=== PATIENT | female | born 2005 | race Caucasian/White ===

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

== ENCOUNTER 2025-01-15 21:08 | Emergency (ER) | payer MEDICAID, SELFPAY ==
[2025-01-15 21:13] VITALS: PULSE 82; O2SAT 98
[2025-01-15 21:14] VITALS: BP 141/78; PULSE 87; PULSE 92; RESP 20; TEMP 37; O2SAT 98
[2025-01-15 21:16] VITALS: BP 133/69; PULSE 92; O2SAT 98
[2025-01-15 21:57] LABS: Abs Immature Grans 0.05 10^3/uL (0.0-0.06); Absolute Basophil Count 0.05 10^3/uL (0.0-0.2); Absolute Eosinophil Count 0.08 10^3/uL (0.0-0.7); Absolute Lymphocyte Count 3.59 10^3/uL (1.2-3.4); Absolute Monocyte Count 0.57 10^3/uL (0.1-0.8); Absolute Neutrophil Count 8.34 10^3/uL (1.2-6.7); Basophils % 0.4 %; Eosinophils % 0.6 %; HCT 34.1 % (36.0-46.0); HGB 11.3 g/dL (11.2-15.7); Immature Grans % 0.4 %; Lymphocytes % 28.3 %; MCH 27.4 pg (27.0-33.0); MCHC 33.1 % (32.0-36.0); MCV 83 fL (80-95); MPV 8.9 fL (8.0-11.0); Monocytes % 4.5 %; Neutrophils % 65.8 %; Platelet Count 205 10^3/uL (130-400); RBC 4.12 10^6/uL (3.93-5.22); RDW 12.5 % (11.7-14.6); RDW-SD 37.5 fL; WBC 12.68 10^3/uL (4.4-10.8)
[2025-01-15 22:13] LABS: ALT 36 U/L (14-59); AST 15 U/L (15-37); Albumin 2.9 g/dL (3.4-5.0); Alkaline Phosphatase 69 U/L (46-116); Anion Gap 11.5 mmol/L (3-11); BUN 8 mg/dL (7-18); Bilirubin, Total 0.2 mg/dL (0.2-1.0); CO2 22.5 mmol/L (21.0-32.0); CREATININE 0.6 mg/dL (0.55-1.02); Calcium 8.5 mg/dL (8.5-10.1); Chloride 106 mmol/L (98-107); Estimated GFR 132.52 (mL/min/1.73m2); Glucose 107 mg/dL (74-106); Magnesium 1.7 mg/dL (1.8-2.4); Potassium 3.4 mmol/L (3.5-5.1); Sodium 140 mmol/L (136-145); Total Protein 6.9 g/dL (6.4-8.2)
[2025-01-15 22:16] VITALS: PULSE 84; PULSE 85; RESP 31; O2SAT 100
[2025-01-15] MEDS: Normal Saline 1,000 ML 1000 ML IV (22:16)
[2025-01-15] MEDS: ACETAMINOPHEN 500 MG/50 ML BAG 200 MG IVPB (22:16)
[2025-01-15] MEDS: Metoclopramide 10 MG/2 ML VIAL IVP (22:16)
[2025-01-15 22:17] VITALS: BP 121/61; PULSE 82; PULSE 96; RESP 23; O2SAT 98
[2025-01-15 22:20] VITALS: PULSE 82; RESP 29; O2SAT 99
[2025-01-15 22:29] LABS: Bilirubin Negative (Negative); Blood Negative (Negative); Clarity Clear (Clear); Glucose Negative (Negative); Ketones Negative (Negative); Leukocyte Esterase Negative (Negative); Nitrite Negative (Negative); Specific Gravity >= 1.030 (1.005-1.025); Urobilinogen 0.2 mg/dL (Up to 0.2)
--- NOTE | 2025-01-16 16:05 | ED.GENADUL_ITS ---
Discharge Plan Disposition Patient Disposition: Home Condition: Stable Discharge Details Clinical Impression: Migraine, Primary Care Provider: Yoly Caldwell ED Provider: Shefali Cabrera Home Meds and New Rx's Prescriptions: Continued albuterol sulfate 90 mcg/actuation HFA aerosol inhaler 2 puff IH Q4H PRN aspirin 81 mg tablet,delayed release (DR/EC) 162 mg PO DAILY Qty: 60 6RF clotrimazole [Antifungal (clotrimazole)] 1 % cream 1 applic topical BID Qty: 30 1RF Plus Vitamin-Mineral 27 mg iron- 1 mg tablet 1 tab PO DAILY Qty: 90 4RF Discharge Instructions Instructions: Headache, Adult ED Additional Instructions: Take Tylenol as needed for discomfort Follow-up with your primary care physician on Saturday Make sure you are having 8 to 10 glasses of water daily Small frequent meals Please return should you have worsening headache fever chills, or send any new concerns arise Referrals: Yoly Caldwell [Primary Care Provider] - 3 days Discharge Data Discharge Date/Time-TO BE ENTERED AT DEPARTURE: 01/15/25 22:57 HPI General Date/Time Provider Initiated Documentation: 01/15/25 21:23 . HPI Narrative: 19-year-old female, 14 weeks , presents with a suspected migraine headache starting this evening. Accompanied by her mother. Reports migraine similar to previous episodes. Mild increased lower extremity swelling, no vision changes, chest pain, shortness of breath, stiff neck, fever, abdominal pain, cramping, or bleeding. Under [facility] care throughout , no urinary symptoms. Tylenol did not relieve pain. Related Data Home Medications ?Medication ?Instructions ?Recorded ?Confirmed albuterol sulfate 90 mcg/actuation 2 puff inhalation Q4H PRN 01/22/19 01/15/25 aerosol inhaler aspirin 81 mg tablet,delayed 162 mg (2 x 81 mg) PO DAILY #60 12/31/24 01/15/25 release tabs clotrimazole 1 % topical cream 1 applic topical BID #30 grams 12/31/24 01/15/25 (Antifungal (clotrimazole)) vitamin no.180-ferrous 1 tab PO DAILY #90 tabs 12/31/24 01/15/25 fumarate 27 mg-folic acid 1 mg tablet ( Plus Vitamin-Mineral) Previous Rx's ?Medication ?Instructions ?Recorded aspirin 81 mg tablet,delayed 162 mg (2 x 81 mg) PO DAILY #60 12/31/24 release tabs clotrimazole 1 % topical cream 1 applic topical BID #30 grams 12/31/24 (Antifungal (clotrimazole)) vitamin no.180-ferrous 1 tab PO DAILY #90 tabs 12/31/24 fumarate 27 mg-folic acid 1 mg tablet ( Plus Vitamin-Mineral) Allergies Allergy/AdvReac Type Severity Reaction Status Date / Time amoxicillin Allergy Severe hives and Verified 12/31/24 10:34 trouble breathing Penicillins Allergy Severe rash,hives, Verified 12/31/24 10:34 and trouble breathing. General Stated Complaint: Headache CHARLEE: 3 Exam Narrative Exam Narrative: General Appearance: Alert, oriented, no acute distress. Vital signs: BP 120/60. HEENT: Pupils equal, round, reactive to light and accommodation. No meningismus. Respiratory: Within normal limits. Gastrointestinal: Benign abdominal exam, no tenderness. Back, Musculoskeletal: Ambulatory with steady gait. Skin: Warm and dry, no rash. Neurological: Benign neurological exam. Course Vital Signs Vital signs: Vital Signs Pulse 82 01/15/25 21:13 Pulse Oximetry 98 01/15/25 21:13 Temperature 37.0 C 01/15/25 21:14 Temperature Source Oral 01/15/25 21:14 Pulse 82 01/15/25 22:20 Pulse 82 01/15/25 22:20 Respiratory Rate 29 H 01/15/25 22:20 Blood Pressure 121/61 01/15/25 22:17 Blood Pressure Mean 78 01/15/25 22:17 Blood Pressure Position Sitting 01/15/25 21:14 Pulse Oximetry 99 01/15/25 22:20 Oxygen Delivery Method Room Air 01/15/25 21:14 Oxygen Flow Rate 0 01/15/25 21:14 Lab/Test Results Lab/Test Results: Laboratory Tests Range/Units 01/15/25 01/15/25 21:25 21:52 WBC (4.4-10.8) 10^3/uL 12.68 H RBC (3.93-5.22) 10^6/uL 4.12 Hgb (11.2-15.7) g/dL 11.3 Hct (36.0-46.0) % 34.1 L MCV (80-95) fL 83 MCH (27.0-33.0) pg 27.4 MCHC (32.0-36.0) % 33.1 RDW (11.7-14.6) % 12.5 Plt Count (130-400) 10^3/uL 205 MPV (8.0-11.0) fL 8.9 Immature Gran % % 0.4 Neutrophils % % 65.8 Lymphocytes % % 28.3 Monocytes % % 4.5 Eosinophils % % 0.6 Basophils % % 0.4 Nucleated RBC % (0.0-0.3) % 0.0 Absolute Neutrophils (1.2-6.7) 10^3/uL 8.34 H Absolute Lymphocytes (1.2-3.4) 10^3/uL 3.59 H Absolute Monocytes (0.1-0.8) 10^3/uL 0.57 Absolute Eosinophils (0.0-0.7) 10^3/uL 0.08 Absolute Basophils (0.0-0.2) 10^3/uL 0.05 Sodium (136-145) mmol/L 140 Potassium (3.5-5.1) mmol/L 3.4 L Chloride (98-107) mmol/L 106 Carbon Dioxide (21.0-32.0) mmol/L 22.5 Anion Gap (3-11) mmol/L 11.5 H BUN (7-18) mg/dL 8 Creatinine (0.55-1.02) mg/dL 0.6 Est GFR (CKD-EPI 2020) (mL/min/1.73m2) 132.52 Glucose (74-106) mg/dL 107 H Calcium (8.5-10.1) mg/dL 8.5 Magnesium (1.8-2.4) mg/dL 1.7 L Total Bilirubin (0.2-1.0) mg/dL 0.2 AST (15-37) U/L 15 ALT (14-59) U/L 36 Alkaline Phosphatase (46-116) U/L 69 Total Protein (6.4-8.2) g/dL 6.9 Albumin (3.4-5.0) g/dL 2.9 L Urine Color (Yellow) Yellow Urine Clarity (Clear) Clear Urine pH (5-8) 6.0 Ur Specific [place] (1.005-1.025) >= 1.030 H Urine Protein (Neg-Trace) mg/dL Trace Urine Ketones (Negative) mg/dL Negative Urine Blood (Negative) Negative Urine Nitrite (Negative) Negative Urine Bilirubin (Negative) Negative Urine Urobilinogen (Up to 0.2) mg/dL 0.2 Ur Leukocyte Esterase (Negative) Negative Urine Glucose (Negative) mg/dL Negative Medical Decision Making Laboratory Studies Magnesium 1.7, potassium 3.4. Urinalysis negative for proteinuria, labs benign. Imaging Ultrasound shows excellent cardiac activity on bedside exam, no formal POCUS obtained Initial Assessment: 19-year-old female, approximately 14 weeks , presents with suspected migraine headache that started this evening. Similar to prior episodes, Tylenol did not alleviate pain. Mild increased swelling in lower extremities. No vision changes, chest pain, shortness of breath, stiff neck, fever, abdominal pain, cramping, or bleeding. Followed throughout with [facility]. No urinary symptoms. Alert and oriented, not in acute distress. No meningismus. Pupils equal, round, reactive to light and accommodation. Neurological exam benign. ED Course: - Given Reglan, Tylenol, and 1 L fluid, headache resolved completely. - heart rate difficult to assess due to body habitus, excellent cardiac activity on ultrasound. - BP 120/60. - Urinalysis negative for proteinuria. - Labs essentially benign. - Encouraged hydration and multivitamin with potassium and magnesium. - Reviewed return precautions, patient understood. Final Assessment: Headache resolved completely after treatment with Reglan, Tylenol, and fluids. heart rate difficult to assess but excellent cardiac activity noted on ultrasound. Blood pressure and labs benign. Clinical Impression: - Migraine headache - at 14 weeks Disposition: - Follow-Up: Encouraged follow-up with OB and PCP. Patient Education: Encouraged hydration and multivitamin with potassium and magnesium. Reviewed return precautions, patient expressed understanding. MDM Components Evaluation: - Number of Differential Diagnoses or Management Options: Migraine headache, at 14 weeks - Amount and Complexity of Data Reviewed: Urinalysis, labs, ultrasound - Risk of Complication and Morbidity or Mortality: Low risk based on benign exam findings and resolved headache. Quality:SDHI Health Related Social Needs: No Data to Display PFSH All Active Problems (Updated 01/15/25 @ 22:47 by YUVAL Camargo) (Acute) Migraine (Chronic) Susceptible to varicella (non-immune), currently (Acute) Family history of diabetes mellitus in first degree relative (Acute) strong family hx type 2 (Acute) Body mass index (BMI) of 40.1 to 44.9 in adult (Acute) Patella-femoral syndrome (Acute) Acanthosis nigricans (Acute) Dependent edema (Acute) Mild intermittent asthma, uncomplicated (Acute 11/10/15) triggers exercise ? hot humid weather Medical History (Updated 01/15/25 @ 22:47 by YUVAL Camargo) Left knee tendonitis Blurred vision Left knee pain Dental caries (04/07/14) Left ankle sprain Left shoulder pain Encounter for screening examination for sexually transmitted disease Early stage of Wears glasses Surgical History ORAL/TEETH Family History Mother Ovarian cancer Diabetes type 2 Essential hypertension Hyperlipidemia Mental disorder DEPRESSION/ANXIETY Seizures Asthma Other No problems noted. 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
== END 2025-01-15 22:57 | disposition home or self-care (01) ==
PROVIDERS: Emergency Provider Physician Assistant; PCP Nurse Practitioner Family
DX: O26.892 Other specified pregnancy related conditions, second trimester (principal); G43.909 Migraine, unspecified, not intractable, without status migrainosus; O99.332 Smoking (tobacco) complicating pregnancy, second trimester; F17.290 Nicotine dependence, other tobacco product, uncomplicated; Z3A.14 14 weeks gestation of pregnancy; Z79.82 Long term (current) use of aspirin
CPT/HCPCS: 80053; 96374; 96375; 99284; 81003; 83735; 85025; J0131; J2765

== ENCOUNTER 2025-02-10 22:43 | Emergency (ER) | payer MEDICAID, SELFPAY ==
[2025-02-10 22:50] VITALS: BP 143/84; PULSE 100; RESP 18; TEMP 35.7; O2SAT 100
--- NOTE | 2025-02-10 23:17 | W.ED.GENAD ---
Discharge Plan Disposition Patient Disposition: Home Condition: Good Discharge Details Clinical Impression: Abscess of right thigh Primary Care Provider: Yoly Caldwell ED Provider: Lavelle Germain Meds and New Rx's Prescriptions: New sulfamethoxazole-trimethoprim [Bactrim DS] 800-160 mg tablet 1 tab PO BID Qty: 10 0RF Continued albuterol sulfate 90 mcg/actuation HFA aerosol inhaler 2 puff IH Q4H PRN aspirin 81 mg tablet,delayed release (DR/EC) 162 mg PO DAILY Qty: 60 6RF clotrimazole [Antifungal (clotrimazole)] 1 % cream 1 applic topical BID Qty: 30 1RF Plus Vitamin-Mineral 27 mg iron- 1 mg tablet 1 tab PO DAILY Qty: 90 4RF Discharge Instructions Instructions: Abscess Incision and Drainage ED Additional Instructions: You were seen for pain in the right upper thigh which was related to an abscess. This was opened and drained though it is still quite firm at the base. Continue warm compresses and Tylenol. You should move the loop back and forth a few times a day to break up loculations. You have been started on an antibiotic. Please follow-up with surgery clinic, call in the morning for an appointment Saturday. Return to ED for any fever, increasing pain or redness, other concerns. Referrals: [facility] [Provider Group] HPI General Mode of arrival: ambulatory. Date/Time Provider Initiated Documentation: 02/10/25 22:54. Limitations to Documentation: no limitations. Information obtained by: patient and RN notes reviewed. HPI Narrative: Patient presents to ED with complaint of pain and swelling in the perineal area. She reports that has been worsening over the course of 2 to 3 weeks. She is 18 weeks . She denies any abdominal pain, vaginal bleeding, vaginal discharge. The pain and swelling in the perineal area is getting worse and tonight had a small amount of green drainage. She had not called and spoke to anyone in OB about this prior but can no longer take the discomfort and came to ED this evening. There is no report of fever. There is no report of this being a problem in the past. Related Data Home Medications ?Medication ?Instructions ?Recorded ?Confirmed albuterol sulfate 90 mcg/actuation 2 puff inhalation Q4H PRN 01/22/19 02/10/25 aerosol inhaler aspirin 81 mg tablet,delayed 162 mg (2 x 81 mg) PO DAILY #60 12/31/24 02/10/25 release tabs clotrimazole 1 % topical cream 1 applic topical BID #30 grams 12/31/24 02/10/25 (Antifungal (clotrimazole)) vitamin no.180-ferrous 1 tab PO DAILY #90 tabs 12/31/24 02/10/25 fumarate 27 mg-folic acid 1 mg tablet ( Plus Vitamin-Mineral) sulfamethoxazole 800 1 tab PO BID #10 tabs 02/11/25 mg-trimethoprim 160 mg tablet (Bactrim DS) Previous Rx's ?Medication ?Instructions ?Recorded aspirin 81 mg tablet,delayed 162 mg (2 x 81 mg) PO DAILY #60 12/31/24 release tabs clotrimazole 1 % topical cream 1 applic topical BID #30 grams 12/31/24 (Antifungal (clotrimazole)) vitamin no.180-ferrous 1 tab PO DAILY #90 tabs 12/31/24 fumarate 27 mg-folic acid 1 mg tablet ( Plus Vitamin-Mineral) sulfamethoxazole 800 1 tab PO BID #10 tabs 02/11/25 mg-trimethoprim 160 mg tablet (Bactrim DS) Allergies Allergy/AdvReac Type Severity Reaction Status Date / Time amoxicillin Allergy Severe hives and Verified 02/10/25 22:51 trouble breathing Penicillins Allergy Severe rash,hives, Verified 02/10/25 22:51 and trouble breathing. General Stated Complaint: Cellulitis CHARLEE: 4 Exam Narrative Exam Narrative: Const: Obese female in NAD. VS per triage. HEENT: NC/AT. Normal facial exam. Neck: Supple. Trachea midline. Lungs: Normal respiratory effort. Neuro: A+O x 3. Normal speech, mentation, gait. Cranial nerves II - XII grossly intact. No gross motor or sensory deficit. Ext: No C/C/E. There is swelling, induration and fluctuance the is in the proximal/medial right thigh at the junction of the groin. This does not involve the perineum or genitalia. There is minimal erythema. Indurated area is about golf ball size with a smaller component of fluctuance central and superficial to the induration. Course Vital Signs Vital signs: Vital Signs Temperature 96.3 F L 02/10/25 22:50 Pulse 100 H 02/10/25 22:50 Respiratory Rate 18 02/10/25 22:50 Blood Pressure 143/84 H 02/10/25 22:50 Pulse Oximetry 100 02/10/25 22:50 Temperature 96.3 F L 02/10/25 22:50 Temperature Source Tympanic 02/10/25 22:50 Pulse 100 H 02/10/25 22:50 Respiratory Rate 18 02/10/25 22:50 Blood Pressure 143/84 H 02/10/25 22:50 Blood Pressure Position Sitting 02/10/25 22:50 Pulse Oximetry 100 02/10/25 22:50 Oxygen Delivery Method Room Air 02/10/25 22:50 Oxygen Flow Rate 0 02/10/25 22:50 Procedure Abscess Drainage Date of Procedure: 02/10/25 Time of Procedure: 23:00 Provider that performed the procedure: Lavelle Germain Standard Time Out Performed: Yes Patient Consented: Verbally Location of Exam: Groin/right side Indication: Abscess. Local anesthetic: Lidocaine 1% and with epi, Amount of Local Anesthetic Used (mL): 5. Sterility: Sterile. Procedure Prep: Hand hygiene, Betadine and 11 blade. Technique uesed, incised with blade. Amount of fluid expressed(mL): 1.5. Irrigation: Irrigation used, Packing: Loop Drain. Outcome: Sucessful.. Ultrasound: Not used Complications: None Procedure Description Note: The fluctuant/indurated area was prepped with Betadine. Central portion anesthetized with 1% lidocaine with epinephrine. 2 stab incisions made about 1 cm apart over the fluctuant area. 1 to 2 cc of bloody purulent drainage was drained. Wound was probed with curved forceps to break up loculations. Deeper indurated area did not drain any further purulent material. Wound irrigated with saline. Loop drain placed. Patient tolerated procedure well. Wound culture was obtained and sent. Medical Decision Making Patient presenting with increased pain and swelling as well as some green drainage from an area of the proximal medial right thigh at the junction of the groin. This is consistent with abscess. Verbal consent obtained for I&D. Please see procedure note. Patient tolerated this well overall. Patient discussed with OB Dr. Falcon. We did determine that Bactrim DS would be safe to use in second trimester, given her allergy to penicillins. However, due to the location of this abscess and induration being more in the thigh than in the perineum or genital region would prefer a referral to surgery. I spoke with Dr. Quinn and surgery will attempt to get the patient in for a recheck Saturday afternoon. Patient is given acetaminophen and Bactrim here. Prescription for Bactrim sent to pharmacy. Instructed patient and mother on wound care/drain care. Also instructed to contact surgery in the morning to set up the appointment for Saturday. Return precautions discussed. PFSH All Active Problems (Acute) Wears glasses (Acute) Dental caries (Acute 04/07/14) Abscess of right thigh (Acute) Susceptible to varicella (non-immune), currently (Acute) Family history of diabetes mellitus in first degree relative (Acute) strong family hx type 2 Body mass index (BMI) of 40.1 to 44.9 in adult (Acute) Patella-femoral syndrome (Acute) Acanthosis nigricans (Acute) Dependent edema (Acute) Medical History Mild intermittent asthma, uncomplicated (11/10/15) triggers exercise ? hot humid weather Migraine Scoliosis Sees a workers compensation specialist at [facility] [place] Dayne Marinva saw him 11/2024 Surgical History ORAL/TEETH Family History Mother Ovarian cancer Diabetes type 2 Essential hypertension Hyperlipidemia Mental disorder DEPRESSION/ANXIETY Seizures Asthma Other No problems noted. 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
[2025-02-11] MEDS: Acetaminophen 500 MG TAB 1000 MG PO (00:10)
[2025-02-11] MEDS: Sulfameth/Trimeth DS TAB 1 TAB PO (00:10)
[2025-02-11] MEDS: Lidocaine 1% Multi-Dose W/EPI 1/100,000 50 ML VIAL (00:10)
--- NOTE | 2025-02-14 13:05 | NUR.NOTE ---
Access chart to get the discharge antibiotic for skin aerobic culture Nursing Note:
--- NOTE | 2025-02-14 13:12 | ED.FU.B_ITS ---
Date of service: 02/14/25 Time of Service: 13:12 Follow Up Plan: I was provided with a culture result for a wound culture, patient per my chart review had an abscess of her upper thigh, had a loop placed and was started on Bactrim and cephalexin per chart review. The culture is growing normal skin lory, no changes need to be made to this patient's medication regimen, and it appears that she has appropriate outpatient follow-up with general surgery and [facility]. No intervention required. Kalee Cole MD
== END 2025-02-11 00:35 | disposition home or self-care (01) ==
LOC: ER 02-11 00:38
PROVIDERS: Emergency Provider Emergency Medicine; PCP Nurse Practitioner Family
DX: L02.214 Cutaneous abscess of groin (principal); O26.892 Other specified pregnancy related conditions, second trimester; O99.332 Smoking (tobacco) complicating pregnancy, second trimester; F17.290 Nicotine dependence, other tobacco product, uncomplicated; Z3A.18 18 weeks gestation of pregnancy
CPT/HCPCS: 10061; 99283; 87070; 87075; J2004

== ENCOUNTER 2025-02-13 23:18 | Emergency (ER) | payer MEDICAID, SELFPAY ==
[2025-02-13 23:22] VITALS: BP 136/95; PULSE 108; RESP 18; TEMP 37.1; O2SAT 97
--- NOTE | 2025-02-13 23:35 | ED.GENADUL_ITS ---
Discharge Plan Disposition Patient Disposition: Home Condition: Good Discharge Details Clinical Impression: Abscess Primary Care Provider: Yoly Caldwell ED Provider: Sondra Meier Home Meds and New Rx's Prescriptions: Continued albuterol sulfate 90 mcg/actuation HFA aerosol inhaler 2 puff IH Q4H PRN clotrimazole [Antifungal (clotrimazole)] 1 % cream 1 applic topical BID Qty: 30 1RF Plus Vitamin-Mineral 27 mg iron- 1 mg tablet 1 tab PO DAILY Qty: 90 4RF cephalexin 500 mg capsule 500 mg PO BID Qty: 8 0RF Discontinued sulfamethoxazole-trimethoprim [Bactrim DS] 800-160 mg tablet 1 tab PO BID Qty: 10 0RF No Action aspirin 81 mg tablet,delayed release (DR/EC) 162 mg PO DAILY Qty: 60 6RF Discharge Instructions Additional Instructions: Do not swim until the wound closes. Follow up with your surgeon. Seek medical attention for new or worsening symptoms, including fever, increasing pain, or if your abscess returns. HPI General Mode of arrival: ambulatory . Date/Time Provider Initiated Documentation: 02/13/25 23:19 . Limitations to Documentation: no limitations . Information obtained by: patient and old records reviewed . HPI Narrative: 19yo F presenting for removal of loop drain. Drain placed during abscess drainage on 02/10/25; patient reports she spoke with her surgeon who stated it should be removed prior to her leaving for vacation. No active drainage from site today. No fevers. She is otherwise in her usual state of health. Related Data Home Medications ?Medication ?Instructions ?Recorded ?Confirmed albuterol sulfate 90 mcg/actuation 2 puff inhalation Q 4H PRN 01/22/19 02/13/25 aerosol inhaler aspirin 81 mg tablet,delayed 162 mg (2 x 81 mg) PO CLAUDIA LY #60 12/31/24 02/13/25 release tabs clotrimazole 1 % topical cream 1 applic topical BID #3 0 grams 12/31/24 02/13/25 (Antifungal (clotrimazole)) vitamin no.180-ferrous 1 tab PO DAILY #90 tab s 12/31/24 02/13/25 fumarate 27 mg-folic acid 1 mg tablet ( Plus Vitamin-Mineral) cephalexin 500 mg capsule 500 mg PO BID #8 caps 02/13/25 Previous Rx's ?Medication ?Instructions ?Recorded aspirin 81 mg tablet,delayed 162 mg (2 x 81 mg) PO CLAUDIA LY #60 12/31/24 release tabs clotrimazole 1 % topical cream 1 applic topical BID #3 0 grams 12/31/24 (Antifungal (clotrimazole)) vitamin no.180-ferrous 1 tab PO DAILY #90 tab s 12/31/24 fumarate 27 mg-folic acid 1 mg tablet ( Plus Vitamin-Mineral) cephalexin 500 mg capsule 500 mg PO BID #8 caps Allergies Allergy/AdvReac Type Severity Reaction Status Date / Time amoxicillin Allergy Severe hives and Verified 02/13/25 23:26 trouble breathing Penicillins Allergy Severe rash,hives, Verified 02/13/25 23:26 and trouble breathing. General Stated Complaint: Recheck CHARLEE: 4 Review of Systems Narrative: see HPI Exam Narrative Exam Narrative: General: Alert, well appearing, well nourished, in no acute distress. Head: Normocephalic, atraumatic Neck: Trachea midline, ?Neck supple. Resp: No respiratory distress. . Extremities: ?No deformities.? No peripheral edema. Neurologic: GCS 15. ? Moves all extremities freely against gravity Skin: Right perineum with loop drain in place. No active drainage. Course Vital Signs Vital signs: Vital Signs Temperature 37.1 C 02/13/25 23:22 Pulse 108 H 02/13/25 23:22 Respiratory Rate 18 02/13/25 23:22 Blood Pressure 136/95 H 02/13/25 23:22 Pulse Oximetry 97 02/13/25 23:22 Temperature 37.1 C 02/13/25 23:22 Temperature Source Tympanic 02/13/25 23:22 Pulse 108 H 02/13/25 23:22 Respiratory Rate 18 02/13/25 23:22 Blood Pressure 136/95 H 02/13/25 23:22 Blood Pressure Position Sitting 02/13/25 23:22 Pulse Oximetry 97 02/13/25 23:22 Oxygen Delivery Method Room Air 02/13/25 23:22 Oxygen Flow Rate 0 02/13/25 23:22 Pain Level 3 02/13/25 23:22 Medical Decision Making 19yo F presenting for removal of loop drain. Drain placed during abscess drainage on 02/10/25; patient reports she spoke with her surgeon who stated it should be removed prior to her leaving for vacation. No active drainage from site today. Slightly tachycardiac on arrival after ambulating into triage; vital signs otherwise reassuring. Drain removed without complication. Repeat HR improved without intervention. Discharged home; discharge instructions and return precautions were reviewed with patient who verbalized understanding. All questions were answered and she is in full agreement with the plan. PFSH All Active Problems (Updated 02/13/25 @ 23:29 by Sondra Meier MD) Abscess (Acute) (Acute) Wears glasses (Acute) Dental caries (Acute 04/07/14) Abscess of right thigh (Acute) Susceptible to varicella (non-immune), currently (Acute) Family history of diabetes mellitus in first degree relative (Acute) strong family hx type 2 Body mass index (BMI) of 40.1 to 44.9 in adult (Acute) Patella-femoral syndrome (Acute) Acanthosis nigricans (Acute) Dependent edema (Acute) Medical History Mild intermittent asthma, uncomplicated (11/10/15) triggers exercise ? hot humid weather Migraine Scoliosis Sees a equipment validation specialist at [facility] [place] Dayne [place]auer saw him 11/2024 Surgical History ORAL/TEETH Family History Mother Ovarian cancer Diabetes type 2 Essential hypertension Hyperlipidemia Mental disorder DEPRESSION/ANXIETY Seizures Asthma Other No problems noted. 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
[2025-02-13 23:38] VITALS: PULSE 98; RESP 16; O2SAT 98
== END 2025-02-13 23:40 | disposition home or self-care (01) ==
PROVIDERS: Emergency Provider Student in an Organized Health Care Education/Training Program; PCP Nurse Practitioner Family
DX: L02.215 Cutaneous abscess of perineum (principal)
CPT/HCPCS: 99024

== ENCOUNTER 2025-03-04 14:45 | Outpatient (REF) | payer MEDICAID, SELFPAY ==
[2025-03-05 14:15] LABS: Chlamydia Result Negative (Negative); GC Result Negative (Negative)
== END 2025-03-04 14:46 | disposition home or self-care (01) ==
LOC: LBN 14:45
PROVIDERS: PCP Nurse Practitioner Family; Visit Provider Advanced Practice Midwife
DX: Z34.92 Encounter for supervision of normal pregnancy, unspecified, second trimester (principal)
CPT/HCPCS: 87491; 87591

== ENCOUNTER 2025-03-22 03:31 | Emergency (ER) | payer MEDICAID, SELFPAY ==
[2025-03-22 03:35] VITALS: PULSE 86; RESP 18; TEMP 36.4; O2SAT 99
--- NOTE | 2025-03-22 04:12 | ED.GENADUL_ITS ---
Discharge Plan Disposition Patient Disposition: Home Condition: Good Discharge Details Clinical Impression: Rhomboid muscle strain Primary Care Provider: Yoly Caldwell ED Provider: Jan Henson Home Meds and New Rx's Prescriptions: New lidocaine [Lidoderm] 5 % adhesive patch,medicated 1 patch Topical Q24H Qty: 15 0RF No Action albuterol sulfate 90 mcg/actuation HFA aerosol inhaler 2 puff IH Q4H PRN aspirin 81 mg tablet,delayed release (DR/EC) 162 mg PO DAILY Qty: 60 6RF clotrimazole [Antifungal (clotrimazole)] 1 % cream 1 applic topical BID Qty: 30 1RF Plus Vitamin-Mineral 27 mg iron- 1 mg tablet 1 tab PO DAILY Qty: 90 4RF cephalexin 500 mg capsule 500 mg PO BID Qty: 8 0RF Discharge Instructions Instructions: Muscle Strain ED Additional Instructions: At this time your exam shows evidence to suggest a strain of your rhomboid muscle. Please apply the Lidoderm patch, and keep this on for 12 hours. It can then be replaced with a new patch which prescription has been sent to your pharmacy. Please also take Tylenol, maximum dose of 1000 mg every 6 hours. Please use a heating pad consistently on your back to help. If you notice any worsening of your symptoms, or any new symptoms such as vomiting, diarrhea, fever, chills, shortness of breath, chest pain, numbness, weakness, or fainting , please return immediately to the emergency department for reevaluation. Please follow up with your primary care provider as soon as possible for reassessment and reevaluation. As always, it was a pleasure participating in your medical care today. Referrals: Yoly Caldwell [Primary Care Provider, Medicine] [facility] General Date/Time Provider Initiated Documentation: 03/22/25 03:42 . HPI Narrative: This is a 19-year-old female without significant medical history who is currently 22 weeks who presents today for evaluation of left scapular ache. Patient states that started 2 days ago, uncertain as to what brought it about. It is worse with movement of the scapula. She did try heating pad without significant improvement. She denies any pleuritic chest pain, shortness of breath, or cough. No fever or chills. She denies trauma. No other complaints at this time. Related Data Home Medications ?Medication ?Instructions ?Recorded ?Confirmed albuterol sulfate 90 mcg/actuation 2 puff inhalation Q 4H PRN 01/22/19 03/22/25 aerosol inhaler aspirin 81 mg tablet,delayed 162 mg (2 x 81 mg) PO CLAUDIA LY #60 12/31/24 03/22/25 release tabs clotrimazole 1 % topical cream 1 applic topical BID #3 0 grams 12/31/24 03/22/25 (Antifungal (clotrimazole)) vitamin no.180-ferrous 1 tab PO DAILY #90 tab s 12/31/24 03/22/25 fumarate 27 mg-folic acid 1 mg tablet ( Plus Vitamin-Mineral) cephalexin 500 mg capsule 500 mg PO BID #8 caps 03/22/25 lidocaine 5 % topical patch 1 patch topical Q24H #15 e a 03/22/25 (Lidoderm) Previous Rx's ?Medication ?Instructions ?Recorded aspirin 81 mg tablet,delayed 162 mg (2 x 81 mg) PO CLAUDIA LY #60 12/31/24 release tabs clotrimazole 1 % topical cream 1 applic topical BID #3 0 grams 12/31/24 (Antifungal (clotrimazole)) vitamin no.180-ferrous 1 tab PO DAILY #90 tab s 12/31/24 fumarate 27 mg-folic acid 1 mg tablet ( Plus Vitamin-Mineral) cephalexin 500 mg capsule 500 mg PO BID #8 caps lidocaine 5 % topical patch 1 patch topical Q24H #15 e a 03/22/25 (Lidoderm) Allergies Allergy/AdvReac Type Severity Reaction Status Date / Time amoxicillin Allergy Severe hives and Verified 03/22/25 03:39 trouble breathing Penicillins Allergy Severe rash,hives, Verified 03/22/25 03:39 and trouble breathing. General Stated Complaint: Nk/Back Pain CHARLEE: 3 Exam Narrative Exam Narrative: 1.Const: Well-nourished, Well-developed, appearing stated age 2.Eyes: PERRL, no conjunctival injection, and symmetrical lids. 3.ENT: Atraumatic external nose and ears. Moist MM. Neck: Symmetric, trachea midline, No thyromegaly. 4.CVS: +S1/S2, Peripheral pulses 2+ and equal in all extremities. Brisk capillary refill in all extremities. 5.RESP: Unlabored respiratory effort. Clear to auscultation bilaterally. No wheezes rales or rhonchi 6.GI: Soft, Nontender/Nondistended, No hepatosplenomegaly. No guarding or rebound. 7.MSK: Normocephalic/Atraumatic, Extremities w/o deformity or ttp No cyanosis or clubbing, Normal movement of all extremities. Mild tenderness on palpation of the rhomboid musculature just medial to the left scapula. No deformity or severe spasm. No bruising. No rash. No tenderness on the shoulder or midline thoracic spine. No rib tenderness. No tenderness of the scapula bone itself. 8.Skin: Warm, Dry. No rashes or lesions. 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 Sensation grossly intact, no focal neurologic deficits. 10.Psych: (AAO) x3. Appropriate mood and affect Course Vital Signs Vital signs: Vital Signs Temperature 36.4 C 03/22/25 03:35 Pulse 86 03/22/25 03:35 Respiratory Rate 18 03/22/25 03:35 Pulse Oximetry 99 03/22/25 03:35 Temperature 36.4 C 03/22/25 03:35 Pulse 86 03/22/25 03:35 Respiratory Rate 18 03/22/25 03:35 Pulse Oximetry 99 03/22/25 03:35 Oxygen Delivery Method Room Air 03/22/25 03:35 Oxygen Flow Rate 0 03/22/25 03:35 Pain Level 10 03/22/25 03:35 Medical Decision Making This is a 19-year-old female without significant medical history who is currently 22 weeks who presents today for evaluation of left scapular ache. Patient states that started 2 days ago, uncertain as to what brought it about. It is worse with movement of the scapula. She did try heating pad without significant improvement. She denies any pleuritic chest pain, shortness of breath, or cough. No fever or chills. She denies trauma. No other complaints at this time. Exam demonstrates well-appearing female, mild achiness over the rhomboid musculature over the left scapula. No significant bruising or rash. No other concerning red flags. No rib or shoulder tenderness. Bedside limited ultrasound shows no pneumothorax. Patient has no tachycardia or pleuritic chest pain, PERC and Wells scores are negative, no evidence to suggest PE. No chest pain in general to suggest ACS. No cough or fever to suggest pneumonia. She is , and not having a menstrual cycle, no evidence to suggest catamenial pneumothorax. Will recommend Lidoderm patch and Tylenol. As well as heating pad. Lidoderm patch and Tylenol was given here. Discussed red flags for which to return. I have extensively reviewed the treatment plan and discharge instructions with the patient. I have addressed all patient concerns at this time. The patient was made aware of what symptoms to monitor for that would warrant a return to the emergency department. Discussed the plan with the patient, they demonstrate verbal understanding and agreement with our assessment and plan at this time. The documentation in this chart was dictated using [employer] dictation software. Please excuse any dictation errors. PFSH All Active Problems (Updated 03/22/25 @ 04:13 by Jan Henson DO) Rhomboid muscle strain (Acute) (Acute) Wears glasses (Acute) Dental caries (Acute 04/07/14) Susceptible to varicella (non-immune), currently (Acute) Family history of diabetes mellitus in first degree relative (Acute) strong family hx type 2 Body mass index (BMI) of 40.1 to 44.9 in adult (Acute) Patella-femoral syndrome (Acute) Acanthosis nigricans (Acute) Dependent edema (Acute) Medical History Mild intermittent asthma, uncomplicated (11/10/15) triggers exercise ? hot humid weather Migraine Scoliosis Sees a community development specialist at [facility] [place] Dayne Marinva saw him 11/2024 Surgical History ORAL/TEETH Family History Mother Ovarian cancer Diabetes type 2 Essential hypertension Hyperlipidemia Mental disorder DEPRESSION/ANXIETY Seizures Asthma Other No problems noted. 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 Pets and animals: Yes Pets and animals: cat(s), bird(s) and other Details: rabbit Do you feel safe at home: Yes Do you feel safe in your relationship?: Yes Female Reproductive History Menstrual control method: none History History 1 Para 0 Hx # Term Pregnancies 0 Multiple births 0 Hx # Pregnancies 0 Ectopic pregnancies 0 AB induced 0 Hx Number of Living Children 0 AB spontaneous 0 POCUS Exam (ED) Limited Thoracic Lung Exam DATE OF EXAM: 03/22/25 TIME OF EXAM: 04:18 PROVIDER THAT PERFORMED THE STUDY: Jan Henson IS THIS A REPEAT EXAM DURING THIS ENCOUNTER: No REASON FOR EXAM: Other (Scapula pain) indication: Scapula pain VISUALIZED STRUCTURES: left anterior, right posterior and left posterior PERTINENT FINDINGS/IMPRESSION: No apparent abnormalities Exam complete
[2025-03-22] MEDS: Acetaminophen 500 MG TAB 1000 MG PO (04:19)
[2025-03-22] MEDS: Lidocaine 5% Patch 1 PATCH TP (04:21)
[2025-03-22 04:23] VITALS: PULSE 89; RESP 18; O2SAT 98
== END 2025-03-22 04:24 | disposition home or self-care (01) ==
PROVIDERS: Emergency Provider Student in an Organized Health Care Education/Training Program; PCP Nurse Practitioner Family
DX: S29.012A Strain of muscle and tendon of back wall of thorax, initial encounter (principal); Z3A.22 22 weeks gestation of pregnancy; X58.XXXA Exposure to other specified factors, initial encounter
CPT/HCPCS: 99283; 99284; 76604

== ENCOUNTER 2025-04-26 01:44 | Outpatient (CLI) | payer MEDICAID, SELFPAY ==
[2025-04-26 11:37] LABS: HCT 35.2 % (36.0-46.0); HGB 11.6 g/dL (11.2-15.7); MCH 27.8 pg (27.0-33.0); MCHC 33.0 % (32.0-36.0); MCV 84 fL (80-95); MPV 9.3 fL (8.0-11.0); Platelet Count 214 10^3/uL (130-400); RBC 4.17 10^6/uL (3.93-5.22); RDW 13.7 % (11.7-14.6); RDW-SD 42.4 fL; WBC 14.33 10^3/uL (4.4-10.8)
[2025-04-26 12:32] LABS: Glucose,1 Hr (Glucola) 116 mg/dL (80-140)
== END 2025-04-26 01:45 | disposition home or self-care (01) ==
LOC: LBO 01:44
PROVIDERS: PCP Nurse Practitioner Family; Visit Provider Advanced Practice Midwife
DX: Z34.92 Encounter for supervision of normal pregnancy, unspecified, second trimester (principal)
CPT/HCPCS: 36415; 82950; 85027

== ENCOUNTER 2025-04-26 10:03 | Outpatient (REF) | payer MEDICAID, SELFPAY ==
[2025-04-26 12:51] LABS: Cannabinoids THC Negative (Negative); METHADONE URINE SCREEN Negative (Negative)
[2025-04-27 15:02] LABS: Fentanyl Scr w/Rfx Confirm Negative ng/mL (<1)
== END 2025-04-26 10:04 | disposition home or self-care (01) ==
LOC: LBN 10:03
PROVIDERS: PCP Nurse Practitioner Family; Visit Provider Advanced Practice Midwife
DX: Z34.92 Encounter for supervision of normal pregnancy, unspecified, second trimester (principal)
CPT/HCPCS: 80307; 80348

== ENCOUNTER 2025-04-29 12:04 | Emergency (ER) | payer MEDICAID, SELFPAY ==
[2025-04-29 12:10] VITALS: BP 111/78; PULSE 106; RESP 20; TEMP 36.7; O2SAT 97
--- NOTE | 2025-04-29 13:41 | W.ED.GENAD ---
Discharge Plan Disposition Patient Disposition: Home Condition: Good Discharge Details Clinical Impression: Abscess Primary Care Provider: Yoly Caldwell ED Provider: Jan Henson Home Meds and New Rx's Prescriptions: New clindamycin HCl 150 mg capsule 450 mg PO Q6H 7 Days Qty: 84 0RF No Action albuterol sulfate 90 mcg/actuation HFA aerosol inhaler 2 puff IH Q4H PRN aspirin 81 mg tablet,delayed release (DR/EC) 162 mg PO DAILY Qty: 60 6RF Plus Vitamin-Mineral 27 mg iron- 1 mg tablet 1 tab PO DAILY Qty: 90 4RF magnesium citrate 100 mg tablet See Rx Instructions PO QHS MDD 400 mg 60 Days Qty: 90 2RF Rx Instructions: 2 to 4 tabs orally every day at bedtime; Start with 2 tabs at bedtime, gradually increase to 4 tabs at bedtime. lidocaine [Lidoderm] 5 % adhesive patch,medicated 1 patch Topical Q24H Qty: 15 0RF Discharge Instructions Instructions: Leyla, Adult ED Additional Instructions: At this time you have a small abscess in your genital region. Fortunately it is not large enough that incision and drainage would be helpful. Please take the antibiotic as prescribed. If you notice any worsening of your symptoms, or any new symptoms such as vomiting, diarrhea, fever, chills, shortness of breath, chest pain, numbness, weakness, or fainting , please return immediately to the emergency department for reevaluation. Please follow up with your primary care provider as soon as possible for reassessment and reevaluation. As always, it was a pleasure participating in your medical care today. Referrals: Yoly Caldwell [Primary Care Provider, Medicine] Discharge Data Discharge Date/Time-TO BE ENTERED AT DEPARTURE: 04/29/25 13:54 HPI General Date/Time Provider Initiated Documentation: 04/29/25 12:19. HPI Narrative: 19-year-old female who is 29 weeks who only had a notable perineal abscess that was drained 2 months ago, who presents today with lesion on her right vulva. Patient states that yesterday she noticed small amount of blood, a red frothy swelling tender nodule the right vulva. Had no drainage or discharge otherwise. The area was mildly tender, but otherwise no other abnormalities. She presents today out of concern that it may be an early abscess, came for further assessment. She denies any other complaints at this time. Baby is still kicking well. No pelvic cramping. No other complaints. Related Data Home Medications ?Medication ?Instructions ?Recorded ?Confirmed albuterol sulfate 90 mcg/actuation 2 puff inhalation Q4H PRN 01/22/19 04/29/25 aerosol inhaler aspirin 81 mg tablet,delayed 162 mg (2 x 81 mg) PO DAILY #60 12/31/24 04/29/25 release tabs vitamins no.180-ferrous 1 tab PO DAILY #90 tabs 12/31/24 04/29/25 fumarate 27 mg-folic acid 1 mg tablet ( Plus Vitamin-Mineral) lidocaine 5 % topical patch 1 patch topical Q24H #15 ea 03/22/25 04/29/25 (Lidoderm) magnesium citrate 100 mg tablet See Rx Instructions PO QHS 60 days 03/25/25 04/29/25 #90 tabs clindamycin HCl 150 mg capsule 450 mg (3 x 150 mg) PO Q6H 7 days 04/29/25 #84 caps Previous Rx's ?Medication ?Instructions ?Recorded aspirin 81 mg tablet,delayed 162 mg (2 x 81 mg) PO DAILY #60 12/31/24 release tabs vitamins no.180-ferrous 1 tab PO DAILY #90 tabs 12/31/24 fumarate 27 mg-folic acid 1 mg tablet ( Plus Vitamin-Mineral) lidocaine 5 % topical patch 1 patch topical Q24H #15 ea 03/22/25 (Lidoderm) magnesium citrate 100 mg tablet See Rx Instructions PO QHS 60 days 03/25/25 #90 tabs clindamycin HCl 150 mg capsule 450 mg (3 x 150 mg) PO Q6H 7 days 04/29/25 #84 caps Allergies Allergy/AdvReac Type Severity Reaction Status Date / Time amoxicillin Allergy Severe hives and Verified 04/29/25 12:13 trouble breathing Penicillins Allergy Severe rash,hives, Verified 04/29/25 12:13 and trouble breathing. General Stated Complaint: RashLesion CHARLEE: 3 Exam Narrative Exam Narrative: 1.Const: Well-nourished, Well-developed, appearing stated age 2.Eyes: PERRL, no conjunctival injection, and symmetrical lids. 3.ENT: Atraumatic external nose and ears. Moist MM. Neck: Symmetric, trachea midline, No thyromegaly. 4.CVS: +S1/S2, Peripheral pulses 2+ and equal in all extremities. Brisk capillary refill in all extremities. 5.RESP: Unlabored respiratory effort. Clear to auscultation bilaterally. No wheezes rales or rhonchi 6.GI: Soft, Nontender/Nondistended, No hepatosplenomegaly. No guarding or rebound. Genital exam demonstrates a single small lesion on the right vulva that is mildly firm and indurated without evidence of redness or cellulitis. No significant fluctuance. Limited bedside ultrasound shows evidence of a less than 5 mm structure, with minimal internal fluid. Certainly not large enough for drainage at this time. No other large abscess or abnormalities. No vesicles. 7.MSK: Normocephalic/Atraumatic, Extremities w/o deformity or ttp No cyanosis or clubbing, Normal movement of all extremities 8.Skin: Warm, Dry. No rashes or lesions. 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 Sensation grossly intact, no focal neurologic deficits. 10.Psych: (AAO) x3. Appropriate mood and affect Course Vital Signs Vital signs: Vital Signs Temperature 36.7 C 04/29/25 12:10 Pulse 106 H 04/29/25 12:10 Respiratory Rate 20 04/29/25 12:10 Blood Pressure 111/78 04/29/25 12:10 Pulse Oximetry 97 04/29/25 12:10 Temperature 36.7 C 04/29/25 12:10 Pulse 106 H 04/29/25 12:10 Respiratory Rate 20 04/29/25 12:10 Blood Pressure 111/78 04/29/25 12:10 Pulse Oximetry 97 04/29/25 12:10 Procedure Abscess Drainage Provider that performed the procedure: Jan Henson Medical Decision Making 19-year-old female who is 29 weeks who only had a notable perineal abscess that was drained 2 months ago, who presents today with lesion on her right vulva. Patient states that yesterday she noticed small amount of blood, a red frothy swelling tender nodule the right vulva. Had no drainage or discharge otherwise. The area was mildly tender, but otherwise no other abnormalities. She presents today out of concern that it may be an early abscess, came for further assessment. She denies any other complaints at this time. Baby is still kicking well. No pelvic cramping. No other complaints. Genital exam demonstrates a single small lesion on the right vulva that is mildly firm and indurated without evidence of redness or cellulitis. No significant fluctuance. Limited bedside ultrasound shows evidence of a less than 5 mm structure, with minimal internal fluid. Certainly not large enough for drainage at this time. No other large abscess or abnormalities. No vesicles. Concern for potential early abscess cyst or lesion. Too small to be drained at this time. We will start the patient on clindamycin for treatment out of the concern for causing kinicterus with Bactrim. Discussed red flags for which to return. heart rate was noted on ultrasound at 142, no signs of distress otherwise. No evidence of vaginal bleeding on exam. No signs of threatened miscarriage. Patient will be discharged home. Discussed red flags which to return. I have extensively reviewed the treatment plan and discharge instructions with the patient and their family. I have addressed all patient concerns at this time. The patient and family was made aware of what symptoms to monitor for that would warrant a return to the emergency department. Discussed the plan with the patient and family, they demonstrate verbal understanding and agreement with our assessment and plan at this time. The documentation in this chart was dictated using [employer] dictation software. Please excuse any dictation errors. PFSH All Active Problems (Updated 04/29/25 @ 13:42 by Jan Henson DO) Abscess (Acute) Carpal tunnel syndrome on both sides (Acute) (Acute) Wears glasses (Acute) Dental caries (Acute 04/07/14) Susceptible to varicella (non-immune), currently (Acute) Family history of diabetes mellitus in first degree relative (Acute) strong family hx type 2 Body mass index (BMI) of 40.1 to 44.9 in adult (Acute) Patella-femoral syndrome (Acute) Acanthosis nigricans (Acute) Dependent edema (Acute) Medical History Mild intermittent asthma, uncomplicated (11/10/15) triggers exercise ? hot humid weather Migraine Scoliosis Sees a mechanical service specialist at [facility] [place] Dayne Juancarlos saw him 11/2024 Surgical History ORAL/TEETH Family History Mother Ovarian cancer Diabetes type 2 Essential hypertension Hyperlipidemia Mental disorder DEPRESSION/ANXIETY Seizures Asthma Other No problems noted. 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 Pets and animals: Yes Pets and animals: cat(s), bird(s) and other Details: rabbit Do you feel safe at home: Yes Do you feel safe in your relationship?: Yes Female Reproductive History Menstrual control method: none History History 1 Para 0 Hx # Term Pregnancies 0 Multiple births 0 Hx # Pregnancies 0 Ectopic pregnancies 0 AB induced 0 Hx Number of Living Children 0 AB spontaneous 0 POCUS Exam (ED) Limited OB Exam DATE OF EXAM:: 04/29/25 TIME OF EXAM:: 14:49 PROVIDER THAT PERFORMED THE STUDY: Jan Henson IS THIS A REPEAT EXAM DURING THIS ENCOUNTER: No Type of Exam: Pelvic OB Trans Abdominal ( heart rate demonstrated at 142) REASON FOR EXAM: other ( heart rate measurement) indication: heart rate measurement VISUALIZED STRUCTURES: Poll PERTINENT FINDINGS/IMPRESSION: cardiac activity Exam Complete. Limited Soft Tissue Exam DATE OF EXAM: 04/29/25 TIME OF EXAM: 14:50 PROVIDER THAT PERFORMED THE STUDY: Jan Henson IS THIS A REPEAT EXAM DURING THIS ENCOUNTER: No LOCATION OF EXAM: Groin/right side (Right vulva) REASON FOR EXAM: Abscess VISUALIZED STRUCTURES: Skin and Subcutaneous tissue PERTINENT FINDINGS/IMPRESSION: Abscess (Extremely small less than 5 mm collection) Right labia . Exam Complete
[2025-04-29] MEDS: Clindamycin 150 MG CAP, 12 CAPS/BTL 450 MG PO (13:50)
== END 2025-04-29 13:54 | disposition home or self-care (01) ==
PROVIDERS: Emergency Provider Student in an Organized Health Care Education/Training Program; PCP Nurse Practitioner Family
DX: L02.215 Cutaneous abscess of perineum (principal)
CPT/HCPCS: 99284; 99283; 76815; 76882

== ENCOUNTER 2025-05-24 02:21 | Outpatient (CLI) | payer MEDICAID, SELFPAY ==
--- NOTE | 2025-05-24 06:45 | DI.US_ITS ---
Exam(s) US OB SHERRIE WEIGHT EXAM: US OB SHERRIE WEIGHT CLINICAL HISTORY: interval growth,Z34.90. TECHNIQUE: Transabdominal obstetrical ultrasound performed. COMPARISON: US POCUS EXAM from 11/30/2024 FINDINGS:: Number of fetuses: 1 position: BREECH Placental location: Fundal POSTERIOR. No evidence of previa. BIOMETRIC DATA: BPD: 7.65cm, 30weeks 5days HC: 29.7cm, 32weeks 6days AC: 28.07cm, 32weeks 1day FL: 6.35cm, 32weeks 6days EFW: 1,939.6g, 4lb 4.03oz, 47.9% Composite Age: 32weeks 1day SALO: 07/18/2025 Heart Rate: 143bpm Amniotic fluid index: 14.9cm. Visually, amount of fluid is within normal limits. IMPRESSION: size and weight are within the expected range. DATA REPOSITORY:
== END 2025-05-24 02:41 ==
LOC: DI 02:21
PROVIDERS: PCP Nurse Practitioner Family; Visit Provider Advanced Practice Midwife
DX: Z34.93 Encounter for supervision of normal pregnancy, unspecified, third trimester (principal); Z3A.32 32 weeks gestation of pregnancy
CPT/HCPCS: 76816

== ENCOUNTER 2025-05-28 18:48 | Outpatient (CLI) | payer MEDICAID, SELFPAY ==
[2025-05-28 19:23] VITALS: BP 133/66; PULSE 90; TEMP 36.8
[2025-05-28 19:41] VITALS: BP 133/66; PULSE 90; TEMP 36.8
--- NOTE | 2025-05-29 16:05 | W.OBNST ---
Date of service: 05/28/25 Time of Service: 20:00 NST Evaluation Reason for NST Reasons for Nonstress Test: DECREASED MOVEMENT Gestational Age Gestational Age in Weeks and Days: 32 Weeks and 4Days Test and Monitor Explained Test/Monitor Explained: Test Explained Vital Signs Blood Pressure: 133/66 Pulse: 90 Temperature: 98.3 F Urine Results Urine Protein: Positive Urine Ketones: Positive Urine Glucose: Negative Urine Blood: Negative NST Information Date on Monitor: 05/28/25 Time on Monitor: 19:05 Date off Monitor: 05/28/25 Time off Monitor: 19:24 Total Time on Monitor: 19 NST Interventions: PO Hydration NST Evaluation Patient States Movement: Decreased FHR Baseline: 130 Variability: Moderate 6-25 bpm Accelerations: 15x15 Decelerations: None NST Results: Reactive Note Ultrasound Done: N/A. NST Note Note: Hoang reported that she was not feeling the baby move despite rest and fluids. Babay was active during NST and palpable by Alisonlily's mother but not by Hoang. Reactive NST, reviewed movement NST Reviewed and Verified by: Dejah Del Rio
[2025-05-29 16:08] VITALS: BP 133/66; PULSE 90; TEMP 36.8
== END 2025-05-28 19:30 | disposition other institution (70) ==
LOC: BCD 18:49 → OBS 19:11
PROVIDERS: PCP Nurse Practitioner Family; Visit Provider Advanced Practice Midwife
DX: O36.8131 Decreased fetal movements, third trimester, fetus 1 (principal); Z3A.32 32 weeks gestation of pregnancy
CPT/HCPCS: 59025

== ENCOUNTER 2025-06-06 07:16 | Outpatient (CLI) | payer MEDICAID, SELFPAY ==
[2025-06-06 11:06] VITALS: BP 134/72; PULSE 96; TEMP 36.4
[2025-06-06 12:40] LABS: Glucose Negative (Negative)
[2025-06-06] MEDS: Lactated Ringers 1,000 ML 1000 ML IV ×2 (13:10→13:56)
[2025-06-06 14:10] VITALS: BP 136/77; PULSE 91
[2025-06-06] MEDS: metroNIDAZOLE 500 MG TAB PO (14:19)
--- NOTE | 2025-06-07 07:18 | W.OBNST ---
Date of service: 06/07/25 Time of Service: 07:18 NST Evaluation Reason for NST Reasons for Nonstress Test: OTHER, SEE COMMENT Reason for NST Other: Elevated BMI Gestational Age Gestational Age in Weeks and Days: 33 Weeks and 6Days Test and Monitor Explained Test/Monitor Explained: Test Explained, Monitor Explained and Patient Verbalized Understanding Vital Signs Blood Pressure: 134/77 Urine Results Urine Protein: Negative Urine Ketones: Negative Urine Glucose: Negative Urine Blood: Negative NST Information Date on Monitor: 06/06/25 Time on Monitor: 11:04 Date off Monitor: 06/06/25 Time off Monitor: 15:01 Total Time on Monitor: 237 NST Interventions: PO Hydration, IV Fluids and Notify Provider Contraction Frequency: q3-5 initially NST Evaluation Patient States Movement: Present FHR Baseline: 130 Variability: Moderate 6-25 bpm Accelerations: 15x15 Decelerations: None NST Results: Reactive Note Ultrasound Done: Presentation (cephalic) Coding for Presentation w/NST: Completed Exam. NST Note Note: SSE performed and VPS collected Cvx exam: closed/thick, firm, posterior, no presenting part in pelvis Cephalic by POCUS Pt give 1.5 liters LR via IV and contractions diminished VPS resulted BV+, started Flagyl 500 mg pO BID Will be seen in clinic in 2 weeks or sooner of pt becomes concerned, warning sx reviewed NST Reviewed and Verified by: Taylor Jean
[2025-06-07 07:21] VITALS: BP 134/77
== END 2025-06-06 15:18 ==
LOC: BCD 07:20 → OBS 10:15
PROVIDERS: PCP Nurse Practitioner Family; Visit Provider Advanced Practice Midwife
DX: O99.891 Other specified diseases and conditions complicating pregnancy (principal); R03.0 Elevated blood-pressure reading, without diagnosis of hypertension; Z3A.33 33 weeks gestation of pregnancy
CPT/HCPCS: 96360; 96361; 59025; 81003; 87086; 87480; 87510; 87660

== ENCOUNTER 2025-06-17 19:43 | Outpatient (CLI) | payer MEDICAID, SELFPAY ==
[2025-06-17 20:23] LABS: Glucose Negative (Negative)
[2025-06-17 20:25] VITALS: BP 134/74; PULSE 93
[2025-06-17 20:26] VITALS: BP 134/74; PULSE 93; TEMP 36.6
[2025-06-17 20:28] LABS: C & S Indicated? No; RBC 0-2 HPF (0-2); WBC 0-2 HPF (0-5)
--- NOTE | 2025-06-17 20:53 | W.OBNST ---
Date of service: 06/17/25 Time of Service: 20:53 NST Evaluation Reason for NST Reasons for Nonstress Test: OTHER, SEE COMMENT Reason for NST Other: rule out UTI Gestational Age Gestational Age in Weeks and Days: 35 Weeks and 3Days Test and Monitor Explained Test/Monitor Explained: Test Explained and Monitor Explained Vital Signs Blood Pressure: 134/74 Pulse: 93 Temperature: 97.8 F NST Information Date on Monitor: 06/17/25 Time on Monitor: 20:00 Date off Monitor: 06/17/25 Time off Monitor: 20:38 Total Time on Monitor: 38 NST Interventions: PO Hydration Contraction Frequency: 7-8.5 NST Evaluation Patient States Movement: Present FHR Baseline: 145 Variability: Moderate 6-25 bpm Accelerations: 15x15 Decelerations: None NST Results: Reactive Note Ultrasound Done: N/A. NST Note Note: dezeray called and reported fernandez to light brown discharge and pelvic pressure. urinalyss neg and culture not indicated. Uterine irritability note. SVE by RN. cervix closed. Signs of labor reviewed. Follow up at practice billing [facility]. NST Reviewed and Verified by: Dejah Del Rio
[2025-06-17 20:56] VITALS: BP 134/74; PULSE 93; TEMP 36.6
== END 2025-06-17 20:46 ==
LOC: BCD 19:44 → OBS 19:49
PROVIDERS: PCP Nurse Practitioner Family; Visit Provider Advanced Practice Midwife
DX: O47.03 False labor before 37 completed weeks of gestation, third trimester (principal); N39.0 Urinary tract infection, site not specified; Z3A.35 35 weeks gestation of pregnancy; O99.891 Other specified diseases and conditions complicating pregnancy
CPT/HCPCS: 59025; 81003; 81015

== ENCOUNTER 2025-06-19 20:21 | Outpatient (CLI) | payer MEDICAID, SELFPAY ==
[2025-06-19 20:59] VITALS: BP 129/65; PULSE 94
[2025-06-19 21:12] VITALS: BP 129/65; PULSE 94; TEMP 36.6
--- NOTE | 2025-06-19 21:40 | W.OBNST ---
Date of service: 06/19/25 Time of Service: 21:30 NST Evaluation Reason for NST Reasons for Nonstress Test: OTHER, SEE COMMENT Reason for NST Other: rule out labor Gestational Age Gestational Age in Weeks and Days: 35 Weeks and 5Days Test and Monitor Explained Test/Monitor Explained: Patient Verbalized Understanding Vital Signs Blood Pressure: 129/65 Pulse: 94 Temperature: 97.9 F Urine Results Urine Protein: Positive Urine Ketones: Positive Urine Glucose: Negative Urine Blood: Negative NST Information Date on Monitor: 06/19/25 Time on Monitor: 20:56 Date off Monitor: 06/19/25 Time off Monitor: 21:21 Total Time on Monitor: 25 NST Interventions: PO Hydration Contraction Frequency: 0 NST Evaluation Patient States Movement: Present FHR Baseline: 135 Variability: Moderate 6-25 bpm Accelerations: 15x15 and Prolonged Decelerations: None NST Results: Reactive Note Ultrasound Done: N/A. NST Note Note: Pt called complaining of vaginal pressure, contractions and brown vaginal mucous. SVE: cvx posterior and closed, cephalic presentation palpable above -3 No bleeding noted, VPS collected UA shows ketonuria though pt states she had just eaten dinner Pt appears in NAD, calm and conversational Discharge to home, f/up as needed and as scheduled Pt reassured her discomforts are nml and expected at this point in NST Reviewed and Verified by: Taylor Jean
[2025-06-20 07:59] VITALS: BP 129/65; PULSE 94; TEMP 36.6
== END 2025-06-19 21:24 ==
LOC: BCD 20:22 → OBS 20:30
PROVIDERS: PCP Nurse Practitioner Family; Visit Provider Advanced Practice Midwife
DX: O47.03 False labor before 37 completed weeks of gestation, third trimester (principal); Z3A.35 35 weeks gestation of pregnancy; R80.9 Proteinuria, unspecified
CPT/HCPCS: 59025; 87480; 87510; 87660

== ENCOUNTER 2025-06-22 14:56 | Outpatient (REF) | payer MEDICAID, SELFPAY | END 2025-06-22 14:57 | disposition home or self-care (01) | LOC: LBN 14:56 | PROVIDERS: PCP Nurse Practitioner Family; Visit Provider Obstetrics & Gynecology | DX: Z34.93 Encounter for supervision of normal pregnancy, unspecified, third trimester (principal) | CPT/HCPCS: 87081 ==

== ENCOUNTER 2025-06-30 19:20 | Outpatient (CLI) | payer MEDICAID, SELFPAY ==
[2025-06-30 19:59] VITALS: BP 118/57; PULSE 91; O2SAT 98
[2025-06-30 20:00] VITALS: RESP 20; TEMP 36.7
--- NOTE | 2025-06-30 20:04 | NUR.NOTE ---
Nursing Note: Pt reports cxs since 1699 this evenig. PT denies vag bleeding or fluid leakage. VSS. Jennifer Jean performing SVE.
[2025-06-30 20:06] VITALS: BP 118/57; TEMP 36.7
--- NOTE | 2025-06-30 21:03 | NUR.NOTE ---
Nursing Note:2024- Pt discharged home undelivered.
== END 2025-06-30 20:25 ==
LOC: BCD 19:21 → OBS 19:21
PROVIDERS: PCP Nurse Practitioner Family; Visit Provider Advanced Practice Midwife
DX: O26.893 Other specified pregnancy related conditions, third trimester (principal); Z3A.37 37 weeks gestation of pregnancy
CPT/HCPCS: 59025

== ENCOUNTER 2025-07-06 10:55 | Outpatient (REF) | payer MEDICAID, SELFPAY ==
[2025-07-06 13:07] LABS: Prot/Crea Ur Ratio 0.25 mg/mg Cr
== END 2025-07-06 10:56 | disposition home or self-care (01) ==
LOC: LBN 10:55
PROVIDERS: PCP Nurse Practitioner Family; Visit Provider Advanced Practice Midwife
DX: Z34.93 Encounter for supervision of normal pregnancy, unspecified, third trimester (principal)
CPT/HCPCS: 82565; 84156

== ENCOUNTER 2025-07-09 19:41 | Outpatient (CLI) | payer MEDICAID, SELFPAY ==
[2025-07-09 20:11] VITALS: BP 144/83; PULSE 134
--- NOTE | 2025-07-09 22:40 | W.OBNST ---
Date of service: 07/09/25 Time of Service: 20:00 NST Evaluation Reason for NST Reasons for Nonstress Test: OTHER, SEE COMMENT Reason for NST Other: rule out labor Gestational Age Gestational Age in Weeks and Days: 38 Weeks and 4Days Test and Monitor Explained Test/Monitor Explained: Test Explained, Monitor Explained and Patient Verbalized Understanding Vital Signs Blood Pressure: 140/80 Urine Results Urine Protein: Positive Urine Ketones: Positive Urine Glucose: Negative Urine Blood: Negative NST Information Date on Monitor: 07/09/25 Time on Monitor: 19:48 Date off Monitor: 07/09/25 Time off Monitor: 20:22 Total Time on Monitor: 34 NST Interventions: PO Hydration Contraction Frequency: 2-3 NST Evaluation Patient States Movement: Present FHR Baseline: 145 Variability: Moderate 6-25 bpm Accelerations: 15x15 Decelerations: None NST Results: Reactive Note Ultrasound Done: N/A. NST Note Note: Pt discharged home. To return 07/12/2025 @ 1700 for IOL NST Reviewed and Verified by: Rika Fink
[2025-07-09 22:44] VITALS: BP 140/80
== END 2025-07-09 22:25 ==
LOC: BCD 19:41 → OBS 19:57
PROVIDERS: PCP Nurse Practitioner Family; Visit Provider Registered Nurse
DX: O47.1 False labor at or after 37 completed weeks of gestation (principal); Z3A.38 38 weeks gestation of pregnancy
CPT/HCPCS: 00123; 59025

== ENCOUNTER 2025-07-12 10:27 | Inpatient (IN) | payer MEDICAID, SELFPAY ==
[2025-07-12] VITALS (140 sets, daily range): BP systolic 106–149; BP diastolic 52–76; PULSE 73–114; RESP 16–18; TEMP 36.5–36.9; O2SAT 94–100; BMI 43.9
--- NOTE | 2025-07-12 12:58 | NUR.NOTE ---
Nursing Note: Cervical balloon placed by Dejah Del Rio CNM with sterile speculum. Patient tolerated well and then verbalized she had to use the restroom. Patient stood up and RN noted there was some blood on the pad, but then another gush of blood hit the floor as the patient stood up. Patient immediately placed back in the bed and put back on monitor. CNM went to get MD to assess. Balloon left in place per ROMANA and MD and continue to monitor. 300 blood loss from weighed pads initially with a total blood loss of 440 mL.
[2025-07-12] MEDS: Lactated Ringers 1,000 ML 999 ML IV (13:30)
--- NOTE | 2025-07-12 13:43 | HPE_ITS ---
Date of service: 07/12/25 Time of Service: 13:43 Assessment and Plan Assessment and plan (1) Encounter for induction of labor: Status: Acute Assessment and plan: Admit to the center. Reviewed induction of labor methods and Hoang elected cervical ripening balloon and misoprostol. Will administer per protocol and anticipate . OB-HPI Labor/Delivery History of Present Illness Reason for Visit: Induction of labor Chief Complaint: Scheduled Induction of Labor Indication for Induction: Other (HI[facility] BMI). SALO Calculator Estimated Delivery Date Method Current WG Current Estimate 07/19/25 Ultrasound #1 39w 0d Other Estimates 07/11/25 LMP (Uncertain) 40w 1d Comments: Hoang is admitted for IOL as recommended by MFM at [facility] for high BMI. History of Present Expected Delivery Route/Plan - CNM FOB/firao - Shaka Yan, incarcerated (age 21, has a 2 yo son). BG Varicella non-immune, offer vaccines Pt plans IOL 39-40 wks d/t BMI. Considering epidural. GBS negative Labor support team: her mother, Griselda and Shaka's mother, Shannan. Prefers to be out of bed as much as possible in labor. Would like to use shower, tub and ball. Desires nexplanon insertion in patient Specific Issues/Plan 1. BMI 41, strong family hx DM, XccD7i=0.9, sees a wellness counselor at [facility] for nutrition tips related to back pain 1a. baseline CMP=nml, TSH=0.77 1b. Level 2 US - limited views, heart spine, chorioids- repeat US @ [facility] 03/10, normal anatomy, 32 week growth US- cathi 14.9 EFW 47%ILE. 1c. Is aware of recommendation for IOL 39-40 wks and agreeable with this plan- scheduled per preference 07/12 at 8 am 2. cfDNA low risk female, CF carrier negative 3. Start low dose ASA for BMI and nulliparity 4. Clotrimazole cream rx'ed for sandrine skin infection underneath pannus 5. Hx depression, not currently taking meds, declines [facility] referral, PHQ9 score=6 6. 5P screen+ d/t friends & family use (w/OD), initial UDS negative, 28 wk UDS=negative 7. Scoliosis - anethesthesia consult 05/24 ( see note), career information specialist at [facility] Dayne Bauer, saw him and had MRI 11/2024. Tx naproxen prior to 8. Constipation: Called with severe cramping @ 23+3 & constipation x 1 week. (See visit log). Recommended copious hydration, walking, d/c milk (known lactose intolerance), start fiber supplement (OTC gummies), & Rx Mag Citrate. Check in__ 9. Covid infection- 10/2 - mild symptoms 10. bacterial vaginosis - treatment with metronidazole - did not complete due to nausea Assessment: History Reviewed & Current Informed Consent Informed Consent: Induction of Labor and Risk,Benefits,Alternatives Discussed [facility] All Active Problems (Updated 07/12/25 @ 13:47 by Dejah Del Rio CNM) Encounter for induction of labor (Acute) Bacterial vaginosis in (Acute) Carpal tunnel syndrome on both sides (Acute) (Acute) Wears glasses (Acute) Dental caries (Acute 04/07/14) Susceptible to varicella (non-immune), currently (Acute) Family history of diabetes mellitus in first degree relative (Acute) strong family hx type 2 Body mass index (BMI) of 40.1 to 44.9 in adult (Acute) Patella-femoral syndrome (Acute) Acanthosis nigricans (Acute) Dependent edema (Acute) Medical History Mild intermittent asthma, uncomplicated (11/10/15) triggers exercise ? hot humid weather Migraine Scoliosis Sees a mission support specialist at [facility] Dayne Marinva saw him 11/2024 Surgical History ORAL/TEETH Family History Mother Ovarian cancer Diabetes type 2 Essential hypertension Hyperlipidemia Mental disorder DEPRESSION/ANXIETY Seizures Asthma Other No problems noted. 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 Pets and animals: Yes Pets and animals: cat(s), bird(s) and other Details: rabbit Do you feel safe at home: Yes Do you feel safe in your relationship?: Yes Additional Social history: lives with her mother (Griselda) Female Reproductive History Menstrual control method: none History History 1 Para 0 Hx # Term Pregnancies 0 Multiple births 0 Hx # Pregnancies 0 Ectopic pregnancies 0 AB induced 0 Hx Number of Living Children 0 AB spontaneous 0 Meds Allergies and Home Medications Allergies Allergy/AdvReac Type Severity Reaction Status Date / Time amoxicillin Allergy Severe hives and Verified 07/06/25 09:48 trouble breathing Penicillins Allergy Severe rash,hives, Verified 07/06/25 09:48 and trouble breathing. Home Medications ?Medication ?Instructions ?Recorded ?Confirmed ?Type albuterol sulfate 90 mcg/actuation 2 puff inhalation Q 4H PRN 01/22/19 07/06/25 History aerosol inhaler aspirin 81 mg tablet,delayed 162 mg (2 x 81 mg) PO CLAUDIA LY #60 12/31/24 07/06/25 Rx release tabs vitamins no.180-ferrous 1 tab PO DAILY #90 ta bs 12/31/24 07/06/25 Rx fumarate 27 mg-folic acid 1 mg tablet ( Plus Vitamin-Mineral) lidocaine 5 % topical patch 1 patch topical Q24H #15 e a 03/22/25 07/06/25 Rx (Lidoderm) Exam Physical Exam Vital signs: Temp Pulse BP Pulse Ox 98.1 F 91 H 126/74 99 07/12/25 11:11 07/12/25 13:41 07/12/25 13:25 07/12/25 13:41 Vital Signs Reviewed: Yes Constitutional Constitutional: no acute distress Detailed Labor and Delivery Exam Dilation: 0 Effacement (%): 20 station: -2 Cervix position: posterior Consistency: medium Mae Score: Cervical Points Exam 0 1 2 3 Dilation Closed 1-2cm 3-4 cm 5-6cm Effacement 0-30% 40-50% 60-70% 80% Consistency Firm Medium Soft Station -3 -2 -1,0 +1,+2 Position Posterior Mid Anterior MAE Score(Cervical Ripeness Score): 2 Amniotic Membrane Status: Intact Monitor Mode: External Contraction Frequency(min): irregular Contraction Duration(sec): 60 Contraction Intensity: Mild Fetus A Heart Rate Baseline: 120 Monitor Accelerations: 15 X 15 Variability: Moderate (6-25 BPM) Presentation: Cephalic Categories: Category I Est. Weight: 7 lb HEENT Exam HEENT Exam: Normal Respiratory Exam Respiratory Exam: Normal Cardiovascular Exam Cardiovascular Exam: Normal Abdominal Exam Abdominal Exam: Normal Detailed Exam Patient deferred: external exam Perineum Description: Normal Extremities Exam Extremities Exam: Normal Skin Exam Skin Exam: Normal Psychiatric Exam Psychiatric Exam: Normal Results Results Group Beta Strep: Negative Blood Type: A+ Rubella Status: Immune Varicella Immunity: Nonimmune Risk Assessment Risk for Shoulder Dystocia Historical/Initial OB: POSITIVE FOR: Pre- BMI>30; NEGATIVE FOR: Pelvic Abnormality, Previous Shoulder Dystocia or Previous Macrosomia 36 Weeks: NEGATIVE FOR: Current Gestational DM, EFW>4500gms or Maternal Weight Gain>40lbs 40 Weeks: NEGATIVE FOR: EFW> 4500 gms, Maternal Weight Gain >40lb or Post Dates Counseling: BMI of >40 Delivery Plan @ 36wks: , IOL @ 39 wks Risk for Pre-Eclampsia Date Initiated/Initials: start low dose ASA. JK Yes, if one or more: NEGATIVE FOR: Hx Pre-E/Gest HTN, Chronic HTN, Multiple Gestation, Pre-gestational DM, Renal Disease, Systemic Lupus or APA Syndrome Yes, if 2 or more: POSITIVE FOR: Nulliparity and BMI>30; NEGATIVE FOR: Age>= 35 yrs, >10yr btwn pregnancies, ethinicty, Mother/Sister w/ Pre-E or Previous IUGR Risk for Post- Hemorrhage Initial: NEGATIVE FOR: Multiple Gestation, Previous PPH, Known Clotting Deficiency, Grand Multiparity or Anticoagulation 36 Weeks: NEGATIVE FOR: Anemia, hgb<10, Low platelets(thrombocytopenia), Gestational HTN or Pre-E, Polyhydraminios or EFW>4500gms 40 Weeks: NEGATIVE FOR: Anemia, hgb<10, Low platelets (thrombocytopenia), Gestation HTN or Pre-E, Polyhydraminios or EFW>4500gms Counseled re: Active Management: Yes Risks Reviewed Risks Reviewed Upon Admission: Yes
[2025-07-12 13:59] LABS: Abs Immature Grans 0.06 10^3/uL (0.0-0.06); HCT 36.2 % (36.0-46.0); HGB 11.7 g/dL (11.2-15.7); Immature Grans % 0.4 %; MCH 26.6 pg (27.0-33.0); MCHC 32.3 % (32.0-36.0); MCV 82 fL (80-95); MPV 9.1 fL (8.0-11.0); Platelet Count 179 10^3/uL (130-400); RBC 4.40 10^6/uL (3.93-5.22); RDW 13.9 % (11.7-14.6); RDW-SD 41.1 fL; WBC 13.85 10^3/uL (4.4-10.8)
[2025-07-12 14:15] LABS: ALT 20 U/L (10-49); AST 15 U/L (<34); Albumin 3.8 g/dL (3.2-5.0); Alkaline Phosphatase 185 U/L (46-116); Anion Gap 9.5 mmol/L (3-11); BUN 9 mg/dL (9-23); Bilirubin, Total 0.30 mg/dL (0.2-1.2); CO2 21.5 mmol/L (20.0-31.0); Calcium 8.7 mg/dL (8.3-10.6); Chloride 109 mmol/L (98-107); Glucose 87 mg/dL (74-106); Potassium 3.6 mmol/L (3.5-5.1); Sodium 140 mmol/L (136-145); Total Protein 7.0 g/dL (5.7-8.2)
[2025-07-12 14:27] LABS: Fentanyl Scr w/Rflx to Conf, U Negative (Negative)
--- NOTE | 2025-07-12 14:33 | ANES.PREOP_ITS ---
General Info Date of Service Date Performed: 07/12/25 Height: 5 ft 7 in Weight: 127.459 kg Body Mass Index (BMI): 43.9 Meds Allergies and Home Medications Allergies Allergy/AdvReac Type Severity Reaction Status Date / Time amoxicillin Allergy Severe hives and Verified 07/06/25 09:48 trouble breathing Penicillins Allergy Severe rash,hives, Verified 07/06/25 09:48 and trouble breathing. Home Medication ?Medication ?Instructions ?Recorded albuterol sulfate 90 mcg/actuation 2 puff inhalation Q 4H PRN 01/22/19 aerosol inhaler aspirin 81 mg tablet,delayed 162 mg (2 x 81 mg) PO CLAUDIA LY #60 12/31/24 release tabs vitamins no.180-ferrous 1 tab PO DAILY #90 ta bs 12/31/24 fumarate 27 mg-folic acid 1 mg tablet ( Plus Vitamin-Mineral) lidocaine 5 % topical patch 1 patch topical Q24H #15 e a 03/22/25 (Lidoderm) Current Visit Medications: Current Medications Generic Name Dose Route Start Last Admin Trade Name Freq PRN Reason Stop Dose Admin Ringer's Solution 1,000 mls @ 200 mls/hr 07/12/25 10:30 07/12/25 13:30 IV 999 mls/hr INFUSION MARCIE Administration Misoprostol 50 mcg 07/12/25 10:30 Misoprostol 50 Mcg Tab PO Q4H MARCIE Nalbuphine HCl 10 mg 07/12/25 14:28 Nalbuphine 10 Mg/Ml Amp IM 07/12/25 14:29 NOW ONE Terbutaline Sulfate 0.25 mg 07/12/25 10:27 Terbutaline 1 Mg/Ml Vial SC PRN PRN Zolpidem Tartrate 10 mg 07/12/25 21:00 Zolpidem 5 Mg Tab PO 07/13/25 06:00 2100 MARCIE PFSH Active Problems Active Problems: Problem Status Onset Code Encounter for induction of labor Acute Z34.90 Bacterial vaginosis in Acute O23.599, B96.89 Carpal tunnel syndrome on both sides Acute G56.03 Acute Z34.90 Wears glasses Acute Dental caries Acute 04/07/14 K02.9 Susceptible to varicella (non-immune), currently Acute O09.899, Z28.39 Family history of diabetes mellitus in first degree relative Acute Z83.3 Body mass index (BMI) of 40.1 to 44.9 in adult Acute Z68.41 Patella-femoral syndrome Acute M22.2X9 Acanthosis nigricans Acute L83 Dependent edema Acute R60.9 Medical History Medical History Mild intermittent asthma, uncomplicated (11/10/15) triggers exercise ? hot humid weather Migraine Scoliosis Sees a monitoring specialist at [facility] Dayne Bauer saw him 11/2024 Surgical History Surgical History ORAL/TEETH Tobacco Smoking/Tobacco Use Status: Former Tobacco Use Second hand exposure: No Alcohol Alcohol Intake: never Substance Use Substance use: Never Substance use type: does not use Prental History History 2 1 Para 0 Hx # Term Pregnancies 0 Multiple births 0 Hx # Pregnancies 0 Ectopic pregnancies 0 AB induced 0 Hx Number of Living Children 0 AB spontaneous 0 Vital Signs and Lab Results Vital Signs Most Recent Vital Signs in EMR: Most Recent Vital Signs Temp Pulse BP Pulse Ox 36.7 C 98 H 128/66 99 07/12/25 11:11 07/12/25 14:31 07/12/25 13:51 07/12/25 14:31 Point of Care Results Point of Care Results: Finger Stick Blood Glucose 93 07/12/25 13:29 Lab Results 07/12/25 13:40 07/12/25 13:42 Blood Type / Crossmatch: 2 Antibody Screen NEGATIVE Today Complete Blood Count: 2 WBC, (4.4-10.8) 13.85 10^3/uL H Today, 13:40 RBC, (3.93-5.22) 4.40 10^6/uL Today, 13:40 Hgb, (11.2-15.7) 11.7 g/dL Today, 13:40 Hct, (36.0-46.0) 36.2 % Today, 13:40 Plt Count, (130-400) 179 10^3/uL Today, 13:40 Complete Metabolic Panel: 2 Sodium, (136-145) 140 mmol/L Today, 13:42 Potassium, (3.5-5.1) 3.6 mmol/L Today, 13:42 Chloride, (98-107) 109 mmol/L H Today, 13:42 Carbon Dioxide, (20.0-31.0) 21.5 mmol/L Today, 13:42 BUN, (9-23) 9 mg/dL Today, 13:42 Creatinine, (0.55-1.02) 0.44 mg/dL L Today, 13:42 Est GFR (CKD-EPI 2020), (mL/min/1.73m2) 182.95 Today, 13:42 Calcium, (8.3-10.6) 8.7 mg/dL Today, 13:42 Albumin, (3.2-5.0) 3.8 g/dL Today, 13:42 Glucose, (74-106) 87 mg/dL Today, 13:42 Liver Function Panel: 2 ALT, (10-49) 20 U/L Today, 13:42 AST, (<34) 15 U/L Today, 13:42 Anesthesia Assessment and Plan Anesthesia History Personal History: No History of Anesthesia Complications Family History: No Family History of Anesthesia Complications Exercise Tolerance Exercise Tolerance: Metabolic Equivalents>4 Pertinent Negatives Pertinent Negatives: No Major Cardiovascular Symptoms or Complaints and No Major Pulmonary Symptoms or Complaints (hasnt used inhaler in a year ) Cardiac & Pulmonary Exam Cardiac Exam: Normal S1/S2 Heart Sounds Pulmonary Exam: Clear Bilateral Breath Sounds Implantable Cardiac Device Does patient have a Pacemaker or an ICD?: No Airway Exam Known Difficult Airway: No Mallampati Class: 4 Mouth Opening: Normal (> 3cm) Thyromental Distance: Greater than 3 cm Neck Range of Motion: Full ROM and Limited ROM Neck Circumference: Thick Teeth Condition: Normal Dentition ASA Classification ASA Score: ASA 3 Emergency Case?: No NPO Status NPO Status: NPO Clears >2 hours, Solids >8 hours Status Status: Confirmed Anesthesia Plan Resuscitation Status: Full Code Anesthesia Technique: Labor Epidural Airway Planned: Natural Airway Pain Management: Epidural Monitors Used: Standard Monitors Preoperative Comments:: 19 yo at ~39 weeks for IOL due to obesity/scoliosis. Sig PMHx: Asthma (Albuterol. Hasn't used in a while), former smoker, scoliosis (followed at [facility]), depression. Plt 179. While starting induction she became intolerant of the labor and requested a primary . Was asked to chat with her about anesthesia options for both epidural analgesia and spinal/epidural anesthesia. Risks, benefits and alternatives (where appropriate) were discussed. Went over early epidural placement for labor analgesia and that hopefully we will make labor more tolerable for her. If an epidural is in place and that if she needed a non- elective section that the epidural would potentially be utilized for the section, however spinal would be preferable if there is time and the epidural placement was straightforward. We also went over the fact that general anesthesia is the back up plan for a section. We will wait for her to have a conversation with Dr. Falcon to move forward. All questions were answered.
[2025-07-12] MEDS: Nalbuphine 10 MG/ML AMP IM (14:50)
[2025-07-12] MEDS: Lactated Ringers 1,000 ML 125 ML IV ×2 (14:56→23:27)
--- NOTE | 2025-07-12 15:37 | W.PM.OBNL1 ---
Date of service: 07/12/25 Time of Service: 15:37 Informed Consent Informed Consent: Induction of Labor and Risk,Benefits,Alternatives Discussed Pelvic Exam Comments: exam deferred Contractions Monitor Mode: External Contraction Frequency(min): irregular Contraction Duration(sec): 40-60 Intensity: Mild Fetus A Monitor: External (US) Heart Rate Baseline: 120 Variability: Minimal (1-5 BPM) Categories: Category I Accelerations: 15 X 15 Decelerations: None Amniotic Membrane Status: Intact Assessment and Plan Assessment and plan (1) Encounter for induction of labor: Status: Acute Assessment and plan: At this time will prepare Dezeray for placement of early epidural and proceed with cervical ripening with misoprostol if she has good pain relief. Anticipate . Objective Abnormal lab results 07/12/25 07/12/25 Range/Units 13:40 13:42 WBC 13.85 H (4.4-10.8) 10^3/uL MCH 26.6 L (27.0-33.0) pg Absolute Neutrophils 10.69 H (1.2-6.7) 10^3/uL Chloride 109 H (98-107) mmol/L Creatinine 0.44 L (0.55-1.02) mg/dL Alkaline Phosphatase 185 H (46-116) U/L Temp Pulse BP Pulse Ox 98.1 F 107 H 128/66 97 07/12/25 11:11 07/12/25 15:01 07/12/25 13:51 07/12/25 15:01 Laboratory Results WBC 13.85 10^3/uL (4.4-10.8) H 07/12/25 13:40 RBC 4.40 10^6/uL (3.93-5.22) 07/12/25 13:40 Hgb 11.7 g/dL (11.2-15.7) 07/12/25 13:40 Hct 36.2 % (36.0-46.0) 07/12/25 13:40 MCV 82 fL (80-95) 07/12/25 13:40 MCH 26.6 pg (27.0-33.0) L 07/12/25 13:40 MCHC 32.3 % (32.0-36.0) 07/12/25 13:40 RDW 13.9 % (11.7-14.6) 07/12/25 13:40 Plt Count 179 10^3/uL (130-400) 07/12/25 13:40 MPV 9.1 fL (8.0-11.0) 07/12/25 13:40 Immature Gran % 0.4 % 07/12/25 13:40 Neutrophils % 77.2 % 07/12/25 13:40 Lymphocytes % 16.6 % 07/12/25 13:40 Monocytes % 5.1 % 07/12/25 13:40 Eosinophils % 0.4 % 07/12/25 13:40 Basophils % 0.3 % 07/12/25 13:40 Nucleated RBC % 0.0 % (0.0-0.3) 07/12/25 13:40 Absolute Neutrophils 10.69 10^3/uL (1.2-6.7) H 07/12/25 13:40 Absolute Lymphocytes 2.30 10^3/uL (1.2-3.4) 07/12/25 13:40 Absolute Monocytes 0.71 10^3/uL (0.1-0.8) 07/12/25 13:40 Absolute Eosinophils 0.06 10^3/uL (0.0-0.7) 07/12/25 13:40 Absolute Basophils 0.04 10^3/uL (0.0-0.2) 07/12/25 13:40 Sodium 140 mmol/L (136-145) 07/12/25 13:42 Potassium 3.6 mmol/L (3.5-5.1) 07/12/25 13:42 Chloride 109 mmol/L (98-107) H 07/12/25 13:42 Carbon Dioxide 21.5 mmol/L (20.0-31.0) 07/12/25 13:42 Anion Gap 9.5 mmol/L (3-11) 07/12/25 13:42 BUN 9 mg/dL (9-23) 07/12/25 13:42 Creatinine 0.44 mg/dL (0.55-1.02) L 07/12/25 13:42 Est GFR (CKD-EPI 2020) 182.95 (mL/min/1.73m2) 07/12/25 13:42 Glucose 87 mg/dL (74-106) 07/12/25 13:42 Calcium 8.7 mg/dL (8.3-10.6) 07/12/25 13:42 Total Bilirubin 0.30 mg/dL (0.2-1.2) 07/12/25 13:42 AST 15 U/L (<34) 07/12/25 13:42 ALT 20 U/L (10-49) 07/12/25 13:42 Alkaline Phosphatase 185 U/L (46-116) H 07/12/25 13:42 Total Protein 7.0 g/dL (5.7-8.2) 07/12/25 13:42 Albumin 3.8 g/dL (3.2-5.0) 07/12/25 13:42 ABO/Rh A Positive 07/12/25 13:42 Antibody Screen NEGATIVE 07/12/25 13:42 Vital Signs Reviewed: Yes Subjective Patient Reports: No new Complaints Interval history since last seen: The RN caring for Hoang checked her cervix and reported that it was 1 cm /70% and -3. I attempted to place the cervical ripening balloon but Hoang's cervix was posterior and difficult to reach. A speculum was placed and the anterior cervix was grasped with ring forcep. Balloon placed easily and Hoang tolerated the procedure well. She got up to the bathroom soon after placement of the balloon and a large amount of bright blood was passed on the way to the bathroom. As she was standing n one place the blood was weighed on the towel and chux placed and weight indicates blood loss of 300 cc. She was returned immediately to bed and heart tones were assessed. A saline lock was started. Dr Falcon was consulted who came to assess the patient. The bleeding had stopped at that time and she recommended leaving the balloon in place and continuing to observe. Hoang later got up to the bathroom to void and became dizzy while sitting on the toilet. She was returned to bed and a 500 cc IV bolus of LR was administered with good effect. There was approximately 50 cc of serous blood passed in the bathroom. Hoang began to experience back pain and pain with contractions. She was unable to tolerate the discomfort and she was offered pain medications including nitrous oxide and IV pain medication. She declined medications and declined to speak to anesthesia saying she wanted a due to the pain. She was under the impression that she could not have an epidural due to scoliosis. I reviewed the anesthesia consult that indicated that an epidural could be offered but may be more difficult to place due to her scoliosis. Position changes were offered without relief and I offered to remove the balloon and she agreed and she said that she felt better but still complained of a back ache and she said that she had made up her mind that she desired a . I notified Dr. Falcon of her wishes. Shortly after that she agreed to try nubain 10 mg IM for pain and that was given. Fredo Mantilla CRNA came and spoke to Hoang and obtained consent for anesthesia as well as labor epidural if she desired. After Fredo left the room, Hoang said that she would like to try an epidural for labor pain relief. I sent a message to Fredo TAM that she had agreed to try epidural. Hoang is receiving support from her parents who are present with her. Results Hemoglobin/Hematocrit: Hgb 11.7 g/dL (11.2-15.7) 07/12/25 13:40 Hct 36.2 % (36.0-46.0) 07/12/25 13:40 Abnormal Lab Findings: Abnormal Labs 07/12/25 07/12/25 13:40 13:42 WBC 13.85 H MCH 26.6 L Absolute Neutrophils 10.69 H Chloride 109 H Creatinine 0.44 L Alkaline Phosphatase 185 H
[2025-07-12] MEDS: FentaNYL/ROPIvacaine 2 mcg/ml and 0.1% 200 ML CADD Cassette EP (16:32)
--- NOTE | 2025-07-12 16:39 | ANES.NEUR_ITS ---
Epidural/Spinal Catheter Date Performed: 07/12/25 Procedure Start: 16:00 Procedure Stop: 16:30 Requesting Provider: Dejah Del Rio Procedure Location: Obstetrics Reason Performed: Labor Epidural Standard Monitors Applied: ECG, Blood Pressure and SpO2 Patient Position: Sitting Sedation Given (Indicate Dose Given): No Sedation given Patient Mental Status: Awake Sterility: Hand Hygiene, Surgical Cap, Surgical Mask, Sterile Gloves, Sterile Drape/Sheet and Chlorhexidine Procedure Location: L3-L4 Interspace Epidural Needle: Tuohy 17 Guage Needle Length: 3.5 Inch Needle Approach: Midline Epidural Procedure: BENITEZ to Saline Used Catheter Placed?: Catheter Placed (19 ga flex tip plus. ) Test Dose (Indicate Dose Given): 3ml 1.5% Lidocaine with 1:200K Epinephrine Given and Negative Test Dose Loss of Resistance Depth (cm): 9 Catheter depth at skin (cm): 15 Dressing: Sorbaview Dressing Placed, Mastisol Used and Dressing reinforced with Tape Epidural Provider Bolus (Indicate Dose Given): Total Ropivacaine 0.1% with Fentanyl 2mcg/ml Given from pump. (ml) Dose:: 5 mL Additives (Indicate Dose Given ): None Infusion Medication: Medication Infusion Began Medication In fusion: Ropivacaine 0.1% with Fentanyl 2mcg/ml Maintenance Infusion Rate (ml/hour): 10 PCEA Bolus Dose (ml): 5 Block Level: N/A Paresthesia: None Ultrasound: Used to cassie site Number of Attempts (See previous attempts in note section): 1 Procedure Tolerated: No Complications Procedure Outcome: Successful Procedure Comment:: After consent about labor analgesia and epidural/spinal anesthesia Hoang was able to chat with Dr. Falcon and think over her options. She has agreed to an epidural at this point in time. She was positioned in bed and back was marked with US. Two locations where identified that would be potentially amenable with neuraxial procedures, both at ~8 cm deep. After marking she was prepped, draped and skin localized. a 17 ga toughy was placed roughtly 1 cm to the left of the midline and advanced to ~ 8 cm with charlene contact. The needle was redirected with continued contact with bone. Then it was pulled back and redirected more laterally and advanced to 9 cm with convincing BENITEZ. After a negative test dose and no aspiration of blood or CSF was noted a 5 mL bolus was given off the pump. She tolerated the procedure well. On recheck, states that she feels numb equally bilaterally. We again discussed options for c section, quesitons anwsered, PCEA function reviewed. Performed By: Fredo Mantilla
[2025-07-12] MEDS: miSOPROStol 25 MCG TAB (17:18)
--- NOTE | 2025-07-12 18:01 | W.PM.OBNL1 ---
Date of service: 07/12/25 Time of Service: 18:01 Informed Consent Informed Consent: Induction of Labor and Risk,Benefits,Alternatives Discussed Pelvic Exam Dilation: 1 Effacement (%): 50 station: -2 Cervix Position: mid Consistency: soft Vaginal Exam Presentation: Cephalic Comments: several clots in vaginal and cervic. No bright red blood noted. Contractions Monitor Mode: External Contraction Frequency(min): every 2-4 Contraction Duration(sec): 40-60 Intensity: Mild Fetus A Monitor: External (US) Heart Rate Baseline: 120 Presentation: Cephalic Variability: Moderate (6-25 BPM) Categories: Category I Accelerations: 15 X 15 Decelerations: None Amniotic Membrane Status: Intact Assessment and Plan Assessment and plan (1) Encounter for induction of labor: Status: Acute Assessment and plan: Will start misoprostol 25 mcg Q4 hours per protocol. Dr Falcon aware of this plan and agrees. (2) Intrapartum hemorrhage: Status: Acute Assessment and plan: Will continue to monitor vaginal bleeding. Anticipate . Objective Abnormal lab results 07/12/25 07/12/25 Range/Units 13:40 13:42 WBC 13.85 H (4.4-10.8) 10^3/uL MCH 26.6 L (27.0-33.0) pg Absolute Neutrophils 10.69 H (1.2-6.7) 10^3/uL Chloride 109 H (98-107) mmol/L Creatinine 0.44 L (0.55-1.02) mg/dL Alkaline Phosphatase 185 H (46-116) U/L Temp Pulse Resp BP Pulse Ox 98.1 F 73 16 141/63 H 97 07/12/25 16:41 07/12/25 17:56 07/12/25 16:54 07/12/25 17:11 07/12/25 17:56 Laboratory Results WBC 13.85 10^3/uL (4.4-10.8) H 07/12/25 13:40 RBC 4.40 10^6/uL (3.93-5.22) 07/12/25 13:40 Hgb 11.7 g/dL (11.2-15.7) 07/12/25 13:40 Hct 36.2 % (36.0-46.0) 07/12/25 13:40 MCV 82 fL (80-95) 07/12/25 13:40 MCH 26.6 pg (27.0-33.0) L 07/12/25 13:40 MCHC 32.3 % (32.0-36.0) 07/12/25 13:40 RDW 13.9 % (11.7-14.6) 07/12/25 13:40 Plt Count 179 10^3/uL (130-400) 07/12/25 13:40 MPV 9.1 fL (8.0-11.0) 07/12/25 13:40 Immature Gran % 0.4 % 07/12/25 13:40 Neutrophils % 77.2 % 07/12/25 13:40 Lymphocytes % 16.6 % 07/12/25 13:40 Monocytes % 5.1 % 07/12/25 13:40 Eosinophils % 0.4 % 07/12/25 13:40 Basophils % 0.3 % 07/12/25 13:40 Nucleated RBC % 0.0 % (0.0-0.3) 07/12/25 13:40 Absolute Neutrophils 10.69 10^3/uL (1.2-6.7) H 07/12/25 13:40 Absolute Lymphocytes 2.30 10^3/uL (1.2-3.4) 07/12/25 13:40 Absolute Monocytes 0.71 10^3/uL (0.1-0.8) 07/12/25 13:40 Absolute Eosinophils 0.06 10^3/uL (0.0-0.7) 07/12/25 13:40 Absolute Basophils 0.04 10^3/uL (0.0-0.2) 07/12/25 13:40 Sodium 140 mmol/L (136-145) 07/12/25 13:42 Potassium 3.6 mmol/L (3.5-5.1) 07/12/25 13:42 Chloride 109 mmol/L (98-107) H 07/12/25 13:42 Carbon Dioxide 21.5 mmol/L (20.0-31.0) 07/12/25 13:42 Anion Gap 9.5 mmol/L (3-11) 07/12/25 13:42 BUN 9 mg/dL (9-23) 07/12/25 13:42 Creatinine 0.44 mg/dL (0.55-1.02) L 07/12/25 13:42 Est GFR (CKD-EPI 2020) 182.95 (mL/min/1.73m2) 07/12/25 13:42 Glucose 87 mg/dL (74-106) 07/12/25 13:42 Calcium 8.7 mg/dL (8.3-10.6) 07/12/25 13:42 Total Bilirubin 0.30 mg/dL (0.2-1.2) 07/12/25 13:42 AST 15 U/L (<34) 07/12/25 13:42 ALT 20 U/L (10-49) 07/12/25 13:42 Alkaline Phosphatase 185 U/L (46-116) H 07/12/25 13:42 Total Protein 7.0 g/dL (5.7-8.2) 07/12/25 13:42 Albumin 3.8 g/dL (3.2-5.0) 07/12/25 13:42 Urine Opiates Screen Negative (Negative) 07/12/25 11:30 Urine Methadone Screen Negative (Negative) 07/12/25 11:30 Urine Fentanyl Screen Negative (Negative) 07/12/25 13:40 Ur Barbiturates Screen Negative (Negative) 07/12/25 11:30 Ur Tricyclics Screen Negative (Negative) 07/12/25 11:30 Ur Amphetamines Screen Negative (Negative) 07/12/25 11:30 U Benzodiazepines Scrn Negative (Negative) 07/12/25 11:30 Urine Cocaine Screen Negative (Negative) 07/12/25 11:30 ABO/Rh A Positive 07/12/25 13:42 Antibody Screen NEGATIVE 07/12/25 13:42 Subjective Patient Reports: No new Complaints Interval history since last seen: Hoang had excellent effect from epidural and is resting comfortably. She has decided to continue with cervical ripening and hopes for a vaginal delivery. She is receiving good support from her parents. Results Hemoglobin/Hematocrit: Hgb 11.7 g/dL (11.2-15.7) 07/12/25 13:40 Hct 36.2 % (36.0-46.0) 07/12/25 13:40 Abnormal Lab Findings: Abnormal Labs 07/12/25 07/12/25 13:40 13:42 WBC 13.85 H MCH 26.6 L Absolute Neutrophils 10.69 H Chloride 109 H Creatinine 0.44 L Alkaline Phosphatase 185 H
[2025-07-12] MEDS: miSOPROStol 25 MCG TAB PO (21:37)
--- NOTE | 2025-07-12 22:22 | W.PM.OBNL1 ---
Date of service: 07/12/25 Time of Service: 22:22 Informed Consent Informed Consent: Induction of Labor and Risk,Benefits,Alternatives Discussed Pelvic Exam Dilation: 1.5 Effacement (%): 70 station: -2 Cervix Position: mid Consistency: soft Vaginal Exam Presentation: Cephalic Comments: Scant dark blood noted with exam. Contractions Monitor Mode: External Contraction Frequency(min): every 3 min Contraction Duration(sec): 60 Intensity: Moderate Fetus A Monitor: External (US) Heart Rate Baseline: 120 Presentation: Cephalic Variability: Moderate (6-25 BPM) Categories: Category I FHR Rhythm: Regular Accelerations: 15 X 15 Decelerations: None Amniotic Membrane Status: Intact Assessment and Plan Assessment and plan (1) Encounter for induction of labor: Status: Acute Assessment and plan: comfort measures and anticipate . Objective Abnormal lab results 07/12/25 07/12/25 Range/Units 13:40 13:42 WBC 13.85 H (4.4-10.8) 10^3/uL MCH 26.6 L (27.0-33.0) pg Absolute Neutrophils 10.69 H (1.2-6.7) 10^3/uL Chloride 109 H (98-107) mmol/L Creatinine 0.44 L (0.55-1.02) mg/dL Alkaline Phosphatase 185 H (46-116) U/L Temp Pulse Resp BP Pulse Ox 97.7 F 86 18 107/52 L 96 07/12/25 21:44 07/12/25 22:17 07/12/25 21:44 07/12/25 21:40 07/12/25 22:17 Laboratory Results WBC 13.85 10^3/uL (4.4-10.8) H 07/12/25 13:40 RBC 4.40 10^6/uL (3.93-5.22) 07/12/25 13:40 Hgb 11.7 g/dL (11.2-15.7) 07/12/25 13:40 Hct 36.2 % (36.0-46.0) 07/12/25 13:40 MCV 82 fL (80-95) 07/12/25 13:40 MCH 26.6 pg (27.0-33.0) L 07/12/25 13:40 MCHC 32.3 % (32.0-36.0) 07/12/25 13:40 RDW 13.9 % (11.7-14.6) 07/12/25 13:40 Plt Count 179 10^3/uL (130-400) 07/12/25 13:40 MPV 9.1 fL (8.0-11.0) 07/12/25 13:40 Immature Gran % 0.4 % 07/12/25 13:40 Neutrophils % 77.2 % 07/12/25 13:40 Lymphocytes % 16.6 % 07/12/25 13:40 Monocytes % 5.1 % 07/12/25 13:40 Eosinophils % 0.4 % 07/12/25 13:40 Basophils % 0.3 % 07/12/25 13:40 Nucleated RBC % 0.0 % (0.0-0.3) 07/12/25 13:40 Absolute Neutrophils 10.69 10^3/uL (1.2-6.7) H 07/12/25 13:40 Absolute Lymphocytes 2.30 10^3/uL (1.2-3.4) 07/12/25 13:40 Absolute Monocytes 0.71 10^3/uL (0.1-0.8) 07/12/25 13:40 Absolute Eosinophils 0.06 10^3/uL (0.0-0.7) 07/12/25 13:40 Absolute Basophils 0.04 10^3/uL (0.0-0.2) 07/12/25 13:40 Sodium 140 mmol/L (136-145) 07/12/25 13:42 Potassium 3.6 mmol/L (3.5-5.1) 07/12/25 13:42 Chloride 109 mmol/L (98-107) H 07/12/25 13:42 Carbon Dioxide 21.5 mmol/L (20.0-31.0) 07/12/25 13:42 Anion Gap 9.5 mmol/L (3-11) 07/12/25 13:42 BUN 9 mg/dL (9-23) 07/12/25 13:42 Creatinine 0.44 mg/dL (0.55-1.02) L 07/12/25 13:42 Est GFR (CKD-EPI 2020) 182.95 (mL/min/1.73m2) 07/12/25 13:42 Glucose 87 mg/dL (74-106) 07/12/25 13:42 Calcium 8.7 mg/dL (8.3-10.6) 07/12/25 13:42 Total Bilirubin 0.30 mg/dL (0.2-1.2) 07/12/25 13:42 AST 15 U/L (<34) 07/12/25 13:42 ALT 20 U/L (10-49) 07/12/25 13:42 Alkaline Phosphatase 185 U/L (46-116) H 07/12/25 13:42 Total Protein 7.0 g/dL (5.7-8.2) 07/12/25 13:42 Albumin 3.8 g/dL (3.2-5.0) 07/12/25 13:42 Urine Opiates Screen Negative (Negative) 07/12/25 11:30 Urine Methadone Screen Negative (Negative) 07/12/25 11:30 Urine Fentanyl Screen Negative (Negative) 07/12/25 13:40 Ur Barbiturates Screen Negative (Negative) 07/12/25 11:30 Ur Tricyclics Screen Negative (Negative) 07/12/25 11:30 Ur Amphetamines Screen Negative (Negative) 07/12/25 11:30 U Benzodiazepines Scrn Negative (Negative) 07/12/25 11:30 Urine Cocaine Screen Negative (Negative) 07/12/25 11:30 ABO/Rh A Positive 07/12/25 13:42 Antibody Screen NEGATIVE 07/12/25 13:42 Vital Signs Reviewed: Yes Subjective Interval history since last seen: Hoang has been using position changes and peanut ball and has been resting comfortably with epidural. Results Hemoglobin/Hematocrit: Hgb 11.7 g/dL (11.2-15.7) 07/12/25 13:40 Hct 36.2 % (36.0-46.0) 07/12/25 13:40 Abnormal Lab Findings: Abnormal Labs 07/12/25 07/12/25 13:40 13:42 WBC 13.85 H MCH 26.6 L Absolute Neutrophils 10.69 H Chloride 109 H Creatinine 0.44 L Alkaline Phosphatase 185 H
[2025-07-13] VITALS (182 sets, daily range): BP systolic 106–129; BP diastolic 53–67; PULSE 75–117; RESP 16–18; TEMP 36.5–37.2; O2SAT 91–99
[2025-07-13] MEDS: miSOPROStol 25 MCG TAB PO ×3 (02:06→10:21)
--- NOTE | 2025-07-13 06:07 | W.PM.OBNL1 ---
Date of service: 07/13/25 Time of Service: 06:07 Informed Consent Informed Consent: Induction of Labor and Risk,Benefits,Alternatives Discussed Pelvic Exam Dilation: 1.5 Effacement (%): 70 station: -3 Cervix Position: mid Consistency: soft Comments: Vertex high. Contractions Monitor Mode: External Contraction Frequency(min): every 2-3 Contraction Duration(sec): 50-60 Intensity: Moderate/Strong Fetus A Monitor: External (US) Heart Rate Baseline: 135 Presentation: Vertex Variability: Moderate (6-25 BPM) Categories: Category I FHR Rhythm: Regular Accelerations: 15 X 15 Decelerations: None Amniotic Membrane Status: Intact Assessment and Plan Assessment and plan (1) Encounter for induction of labor: Status: Acute Assessment and plan: Will administer another dose of misooprostol and Anticipate . Objective Abnormal lab results 07/12/25 07/12/25 Range/Units 13:40 13:42 WBC 13.85 H (4.4-10.8) 10^3/uL MCH 26.6 L (27.0-33.0) pg Absolute Neutrophils 10.69 H (1.2-6.7) 10^3/uL Chloride 109 H (98-107) mmol/L Creatinine 0.44 L (0.55-1.02) mg/dL Alkaline Phosphatase 185 H (46-116) U/L Temp Pulse Resp BP Pulse Ox 98.2 F 98 H 16 126/58 L 98 07/12/25 23:20 07/13/25 06:05 07/13/25 04:30 07/13/25 03:29 07/13/25 06:05 Laboratory Results WBC 13.85 10^3/uL (4.4-10.8) H 07/12/25 13:40 RBC 4.40 10^6/uL (3.93-5.22) 07/12/25 13:40 Hgb 11.7 g/dL (11.2-15.7) 07/12/25 13:40 Hct 36.2 % (36.0-46.0) 07/12/25 13:40 MCV 82 fL (80-95) 07/12/25 13:40 MCH 26.6 pg (27.0-33.0) L 07/12/25 13:40 MCHC 32.3 % (32.0-36.0) 07/12/25 13:40 RDW 13.9 % (11.7-14.6) 07/12/25 13:40 Plt Count 179 10^3/uL (130-400) 07/12/25 13:40 MPV 9.1 fL (8.0-11.0) 07/12/25 13:40 Immature Gran % 0.4 % 07/12/25 13:40 Neutrophils % 77.2 % 07/12/25 13:40 Lymphocytes % 16.6 % 07/12/25 13:40 Monocytes % 5.1 % 07/12/25 13:40 Eosinophils % 0.4 % 07/12/25 13:40 Basophils % 0.3 % 07/12/25 13:40 Nucleated RBC % 0.0 % (0.0-0.3) 07/12/25 13:40 Absolute Neutrophils 10.69 10^3/uL (1.2-6.7) H 07/12/25 13:40 Absolute Lymphocytes 2.30 10^3/uL (1.2-3.4) 07/12/25 13:40 Absolute Monocytes 0.71 10^3/uL (0.1-0.8) 07/12/25 13:40 Absolute Eosinophils 0.06 10^3/uL (0.0-0.7) 07/12/25 13:40 Absolute Basophils 0.04 10^3/uL (0.0-0.2) 07/12/25 13:40 Sodium 140 mmol/L (136-145) 07/12/25 13:42 Potassium 3.6 mmol/L (3.5-5.1) 07/12/25 13:42 Chloride 109 mmol/L (98-107) H 07/12/25 13:42 Carbon Dioxide 21.5 mmol/L (20.0-31.0) 07/12/25 13:42 Anion Gap 9.5 mmol/L (3-11) 07/12/25 13:42 BUN 9 mg/dL (9-23) 07/12/25 13:42 Creatinine 0.44 mg/dL (0.55-1.02) L 07/12/25 13:42 Est GFR (CKD-EPI 2020) 182.95 (mL/min/1.73m2) 07/12/25 13:42 Glucose 87 mg/dL (74-106) 07/12/25 13:42 Calcium 8.7 mg/dL (8.3-10.6) 07/12/25 13:42 Total Bilirubin 0.30 mg/dL (0.2-1.2) 07/12/25 13:42 AST 15 U/L (<34) 07/12/25 13:42 ALT 20 U/L (10-49) 07/12/25 13:42 Alkaline Phosphatase 185 U/L (46-116) H 07/12/25 13:42 Total Protein 7.0 g/dL (5.7-8.2) 07/12/25 13:42 Albumin 3.8 g/dL (3.2-5.0) 07/12/25 13:42 Urine Opiates Screen Negative (Negative) 07/12/25 11:30 Urine Methadone Screen Negative (Negative) 07/12/25 11:30 Urine Fentanyl Screen Negative (Negative) 07/12/25 13:40 Ur Barbiturates Screen Negative (Negative) 07/12/25 11:30 Ur Tricyclics Screen Negative (Negative) 07/12/25 11:30 Ur Amphetamines Screen Negative (Negative) 07/12/25 11:30 U Benzodiazepines Scrn Negative (Negative) 07/12/25 11:30 Urine Cocaine Screen Negative (Negative) 07/12/25 11:30 ABO/Rh A Positive 07/12/25 13:42 Antibody Screen NEGATIVE 07/12/25 13:42 Vital Signs Reviewed: Yes Subjective Patient Reports: No new Complaints Interval history since last seen: Hoang has been sleeping well most of the night and is comfortable with epidural. No further bleeding. She awoke and voided on the commode. Results Hemoglobin/Hematocrit: Hgb 11.7 g/dL (11.2-15.7) 07/12/25 13:40 Hct 36.2 % (36.0-46.0) 07/12/25 13:40 Abnormal Lab Findings: Abnormal Labs 07/12/25 07/12/25 13:40 13:42 WBC 13.85 H MCH 26.6 L Absolute Neutrophils 10.69 H Chloride 109 H Creatinine 0.44 L Alkaline Phosphatase 185 H
[2025-07-13] MEDS: Lactated Ringers 1,000 ML 125 ML IV (07:51)
[2025-07-13] MEDS: FentaNYL/ROPIvacaine 2 mcg/ml and 0.1% 200 ML CADD Cassette EP (09:52)
--- NOTE | 2025-07-13 12:31 | W.PM.OBNL1 ---
Date of service: 07/13/25 Time of Service: 12:31 Informed Consent Informed Consent: Induction of Labor, Risk,Benefits,Alternatives Discussed and Other (pt consents to AROM) Pelvic Exam Dilation: 2.5 Effacement (%): 50 station: -3 Cervix Position: anterior Consistency: medium BISHOPS Score(Cervical Ripeness Score): 5 Contractions Monitor Mode: External Contraction Frequency(min): rare Intensity: Mild Fetus A Monitor: External (US) Heart Rate Baseline: 145 Variability: Moderate (6-25 BPM) Categories: Category I Accelerations: Present Decelerations: None Amniotic Membrane Status: Ruptured Rupture Method: Artifical Amniotic Fluid: Clear Amount: moderate Date of Membrane Rupture: 07/13/25 Time of Membrane Rupture: 12:21 Assessment and Plan Assessment and plan (1) Encounter for induction of labor: Status: Acute Assessment and plan: A: Harden score @ 5-6. Received 5th dose of 25 mcg misprostel PO @ 1020 Category 1 tracing, epidural effective, pt calm and relaxed P: R&B of AROM with cephalic presentation at -3 station discussed incl distress, cord prolapse, emergent c/s. Pt gives informed consent. Clear and blood tinged fluid returned, cvx 2-3/50% anterior, pt and fetus tolerated well Plan for pitocin augmentation 4 hrs after last miso dose (2) Body mass index (BMI) of 40.1 to 44.9 in adult: Status: Acute Objective Vital Signs Reviewed: Yes Objective Narrative Objective Narrative: Normotensive, afebrile Epidural working well Subjective Interval history since last seen: Comfortable with epidural, able to void in bedside commode, has been sleeping and napping, her mother and father are with her for support. Results Hemoglobin/Hematocrit: Hgb 11.7 g/dL (11.2-15.7) 07/12/25 13:40 Hct 36.2 % (36.0-46.0) 07/12/25 13:40 Abnormal Lab Findings: Abnormal Labs 07/12/25 07/12/25 13:40 13:42 WBC 13.85 H MCH 26.6 L Absolute Neutrophils 10.69 H Chloride 109 H Creatinine 0.44 L Alkaline Phosphatase 185 H
--- NOTE | 2025-07-13 13:01 | ANES_ITS ---
Date of service: 07/13/25 Time of Service: 09:45 Anesthesia Note Report Anesthesia Note: Patient report received from Fredo Mantilla CRNA, prior anesthesia provider. Patient's chart reviewed to include induction progress and anesthetic preoperative report. Concern noted for patient's elevated BMI, potential difficult airway and challenging neuraxial access. Advised team (Ted/Michael) of patient's anesthetic risks and expressed concern for after hours in terventions given reduced resources. Will continue to monitor the patient's progress.
[2025-07-13] MEDS: Oxytocin/Normal Saline 30 UNIT/500 ML BAG 2 UNITS IV (14:43)
--- NOTE | 2025-07-13 17:40 | W.PM.OBNL1 ---
Date of service: 07/13/25 Time of Service: 17:30 Informed Consent Informed Consent: Augmentation of Labor, Risk,Benefits,Alternatives Discussed and Other (pt consents to internal monitor placement) Pelvic Exam Dilation: 4 Effacement (%): 60 station: -4 Cervix Position: anterior Consistency: medium Contractions Monitor Mode: Internal Contraction Frequency(min): 2 IUPC resting tone (mmHg): 20 IUPC [place] units: 140 Fetus A Monitor: Internal (FSE) Heart Rate Baseline: 130 Variability: Moderate (6-25 BPM) Categories: Category I Accelerations: Present Decelerations: None Amniotic Membrane Status: Ruptured Assessment and Plan Assessment and plan (1) Encounter for induction of labor: Status: Acute Assessment and plan: A: Pt resting well, able to void in bedside commode qs throughout the day Discussed internal monitor placement with pt and she gives consent Pitocin augmentation @ 4 mu/min, reduced to 3 due to tachysystole P: Pt is aware of slow progress and lack of descent Pt status reported to Dr. Rodriguez Will continue with trial of labor, reassess for progress and route of delivery in 3-4 hrs Objective Vital Signs Reviewed: Yes Subjective Interval history since last seen: Epidural remains effective, pt has rested and napped most of the day
--- NOTE | 2025-07-13 21:37 | OBCE_ITS ---
Date of service: 07/13/25 Time of Service: 21:37 Assessment and Plan Assessment and plan (1) Encounter for induction of labor: Status: Acute Assessment and plan: Failed induction with labor arrest. Will proceed to . Risk, benefits, and alternatives explained. Informed consent obtained. (2) Arrested labor: Status: Acute History of Present Illness History of Present Illness Chief Complaint: Labor arrest Narrative: Patient is a 19-year-old female here today for labor induction. She had cervical ripening followed by artificial rupture of membranes for clear fluid with Pitocin augmentation. She received an epidural for pain control, and has arrested her labor at 4 cm. She had adequate uterine contractions with her Pitocin augmentation based on intrauterine pressure catheter and scalp electrode. She has a category 1, reactive strip. In light of no change or descent of the vertex after roughly 5 hours of Pitocin augmentation, patient was offered either continuation of labor process versus . She opted for . The risk, benefits, and alternatives of delivery were explained to the patient. This is including but not limited to infection, bleeding, injury to the surrounding organs, risk of anesthesia, risk of thromboembolic event. In light of her penicillin allergy which will was as a child, is in the severe range, she will receive clindamycin, gentamicin, and azithromycin for surgical site infection prophylaxis. She will have pneumatic compression stockings for DVT prophylaxis. Her starting hemoglobin is 11.7. Consults Consult date: 07/13/25 Review of Systems Constitutional Constitutional: Reports system reviewed and no additional complaints, except as documented ENT Ears, Nose, Mouth, and Throat: Reports system reviewed and no additional complaints, except as documented Respiratory Respiratory: Reports system reviewed and no additional complaints, except as documented Gastrointestinal Gastrointestinal: Reports system reviewed and no additional complaints, except as documented PFSH All Active Problems (Updated 07/13/25 @ 21:41 by Mckenzie Rodriguez DO) Arrested labor (Acute) Intrapartum hemorrhage (Acute) Encounter for induction of labor (Acute) Carpal tunnel syndrome on both sides (Acute) (Acute) Wears glasses (Acute) Dental caries (Acute 04/07/14) Susceptible to varicella (non-immune), currently (Acute) Body mass index (BMI) of 40.1 to 44.9 in adult (Acute) Patella-femoral syndrome (Acute) Acanthosis nigricans (Acute) Dependent edema (Acute) Medical History (Updated 07/13/25 @ 21:41 by Mckenzie Rodriguez DO) Family history of diabetes mellitus in first degree relative strong family hx type 2 Bacterial vaginosis in Constipation Mild intermittent asthma, uncomplicated (11/10/15) triggers exercise ? hot humid weather Scoliosis Sees a production support specialist at [facility] Dayne Bauer saw him 11/2024 Surgical History ORAL/TEETH Family History Mother Ovarian cancer Diabetes type 2 Essential hypertension Hyperlipidemia Mental disorder DEPRESSION/ANXIETY Seizures Asthma Other No problems noted. 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 Pets and animals: Yes Pets and animals: cat(s), bird(s) and other Details: rabbit Do you feel safe at home: Yes Do you feel safe in your relationship?: Yes Additional Social history: lives with her mother (Griselda) Female Reproductive History Menstrual control method: none History History 2 1 Para 0 Hx # Term Pregnancies 0 Multiple births 0 Hx # Pregnancies 0 Ectopic pregnancies 0 AB induced 0 Hx Number of Living Children 0 AB spontaneous 0 Exam Const Nutritional Appearance: obese Eyes General: appearance normal, both eyes and all related structures Resp Effort & Inspection: normal respiratory effort, no audible wheezes and no cough Cardio Rate: regular rate Rhythm: regular rhythm GI Other: Gravid, estimated weight by Piero's, 9 pounds External Female Exam: normal external appearance Other: Cervical examination by Jennifer Jean CNM?4 to 5 cm, 80%, -3 station Results Last Vital Signs Temp 97.7 F 07/13/25 21:33 Pulse 93 H 07/13/25 21:34 Resp 16 07/13/25 21:33 BP 129/67 07/13/25 21:33 Pulse Ox 98 07/13/25 21:34 Labs 07/12/25 13:40 07/12/25 13:42
[2025-07-13] MEDS: CLINDAMYCIN 900 MG/50 ML BAG 50 MG IVPB (22:04)
[2025-07-13] MEDS: Bupivacaine 0.25% Pres-Free 30 ML VIAL (22:40)
--- NOTE | 2025-07-13 23:22 | PLAC_PTH ---
PATIENT: Hoang Keita LOC: OBS U#:[id number] AGE/SX: 19/F ROOM: OBS.303 RE07/12/[address]: Dejah Del Rio : 2005 BED: A DIS: 07/18/2025 SPEC #: [id number] RECD: 07/14/25 12:43 STATUS: JOSE C REQ #: [id number] BETHANY: 07/13/25 23:[address]: Dejah Del Rio DEPT: Surgical Specimen RECD BY: Shefali Phillips ENTERED: 07/14/25 12:44 SP TYPE: PLAC OTHR DR: Yoly Caldwell Tissues: 1 - PLACENTA (3RD TRIMESTER) Procedures: GROSS AND MICRO LEVEL 5 Comments: [id number]
[2025-07-14] VITALS (91 sets, daily range): BP systolic 120–133; BP diastolic 54–93; PULSE 73–143; RESP 16–97; TEMP 36.5–39.6; O2SAT 95–100
--- NOTE | 2025-07-14 00:18 | W.PM.OBCSECT ---
Date of service: 07/14/25 Time of Service: 00:18 Operative Note Operative Note Delivery Method: Unscheduled STAT: No and Primary NTSV>37 Weeks: Yes DATE OF PROCEDURE: 07/14/25 PRE-OP DIAGNOSES: at 39 weeks, failed induction, arrest of descent and dilation POST-OP DIAGNOSES: same PROCEDURE: Primary low-transverse SURGEON: Mckenzie Rodriguez Mother'S Helper: Taylor Jean Anesthesia: local and spinal Estimated blood loss (mL): 475 Pathology: other Complications: None Patient was transported to: floor Patient's condition: stable Indications: Failed induction, arrest of labor Findings: Normal tubes, ovaries, uterus. Delivery of viable female infant from the vertex position. Significant caput and molding, despite 4 cm of cervical dilation Procedure Description: After consultation was performed, full informed consent was obtained for primary . The patient was taken to the operating suite where she was placed in the seated position. Her previous epidural catheter that had been placed was removed and spinal anesthesia. She was then placed in the dorsal supine position with leftward tilt. She received antibiotic prophylaxis including Zithromycin, clindamycin, and gentamicin due to severe penicillin allergy. She had a Sanches catheter inserted for continuous bladder drainage and was prepped and draped, including vaginal preparation, in the usual sterile fashion. A timeout was held. Attention was turned to the abdomen where a Pfannenstiel skin incision was made and carried down to the underlying fascia. The fascia was incised in the midline and extended laterally. The rectus muscles were identified and in the midline. The peritoneum was identified tented up and entered sharply and the peritoneal incision was extended superiorly and inferiorly. At this point, the Russ bladder blade was inserted and the vesicouterine peritoneum identified, tented up, and entered sharply. The bladder flap was then created and the Russ bladder blade was reinserted. A low transverse uterine incision was made with a scalpel and extended bluntly laterally. There was continued clear amniotic fluid. The vertex was well into the pelvis which was elevated gently with gentle upward traction. The vertex was delivered through the incision without difficulty. There was evidence of nuchal cord x 1 which was loose and delivered through and the shoulders followed without difficulty. A three-vessel cord was noted clamped x 2 and cut and the was handed off to the waiting pediatric group. A segment of cord was obtained for cord gases if needed and cord blood sampled. The placenta was densely adherent to the posterior fundal region which was manually expressed from the uterus. On inspection the placenta was noted to be intact, and distinctly calcified. The uterus was then exteriorized and cleared of all clot and debris. The uterine incision was closed using 0 Monocryl suture in a 2 layer fashion, first being running locked, second being imbricating. There was 1 area at the right apex of the incision with a small amount of bleeding which was oversewn with a single stitch of 0 Monocryl suture in a donito-xo-eohlk fashion to achieve hemostasis. The uterus was then returned to the abdomen abdomen irrigated with copious amounts of normal saline. Tubes and ovaries were normal. There was a small paraovarian cyst, 1.5 cm, benign in appearance. Uterine incision was again reinspected and noted be hemostatic. Abdomen again irrigated with copious amounts of normal saline. The fascial incision was then closed using 0 Vicryl suture in a running fashion. Subcutaneous tissue reapproximated with 3-0 Vicryl suture and the skin edge reapproximated with 4-0 undyed Vicryl. Steri-Strips and a sterile dressing were placed. Patient was taken to the center in stable condition with a Sanches catheter draining clear yellow urine. Complications: None apparent Fluids: Crystalloid per anesthesia QBL: 475 mL Pathology: Placenta for examination, cord blood sample. Findings: As above
[2025-07-14] MEDS: Lactated Ringers 1,000 ML 125 ML IV (00:30)
[2025-07-14] MEDS: Oxytocin/Normal Saline 30 UNIT/500 ML BAG 95 UNITS IV (00:30)
[2025-07-14] MEDS: Ketorolac 15 MG/ML VIAL (01:16)
--- NOTE | 2025-07-14 07:24 | OBPPV_ITS ---
Date of service: 07/14/25 Time of Service: 07:25 Assessment and Plan Assessment and plan (1) Status post primary low transverse section: Status: Acute Assessment and plan: Postop day 0 status post primary due to arrested labor and failed induction. Doing well. Sanches catheter in place. Appropriate urine output. Vitals are stable. CBC in the morning. Expectation would be ambulation, up in a chair, or Breast-feeding and pain control today. Subjective Subjective Interval history: Patient seen this morning, postoperative day 0 status post primary low- transverse due to labor arrest. She is doing well. Her pain is reasonably well-controlled. She is starting to have returned of sensation. Patient's Mood: Appropriate Exam Physical Exam Vital signs: Temp Pulse Resp BP Pulse Ox 98.1 F 102 H 16 121/63 95 07/14/25 05:28 07/14/25 05:18 07/14/25 06:30 07/14/25 05:18 07/14/25 05:14 Vital Signs Reviewed: Yes Results Hemoglobin/Hematocrit: Hgb 11.7 g/dL (11.2-15.7) 07/12/25 13:40 Hct 36.2 % (36.0-46.0) 07/12/25 13:40 Abnormal Lab Findings: Abnormal Labs 07/12/25 07/12/25 13:40 13:42 WBC 13.85 H MCH 26.6 L Absolute Neutrophils 10.69 H Chloride 109 H Creatinine 0.44 L Alkaline Phosphatase 185 H
[2025-07-14] MEDS: Normal Saline Flush 10 ML SYR IVP ×3 (08:31→20:06)
[2025-07-14] MEDS: Ketorolac 15 MG/ML VIAL IVP ×4 (08:32→23:54)
--- NOTE | 2025-07-14 14:24 | W.ANESPOSTOP ---
Postoperative Evaluation Date, Time and Location Date Performed: 07/14/25 Time Performed: 14:24 Patient Location: Obstetrics Vital Signs Most Recent Imported Vital Signs: Most Recent Vital Signs Temp Pulse Resp BP Pulse Ox 37.0 C 98 H 18 122/73 97 07/14/25 08:35 07/14/25 08:35 07/14/25 11:14 07/14/25 08:35 07/14/25 08:35 Pain Score Most Recent Pain Score: Most Recent Pain Score Pain Level [Abdomen] 5 07/14/25 08:35 Pain Level 5 07/14/25 14:16 Assessment Mental Status: Awake (Alert & Oriented to Patient Baseline) Airway and Respiratory Function: Patent airway with normal (patient baseline) respiratory exam Cardiovascular Function: Hemodynamically Stable Hydration Status: Adequately Hydrated Nausea & Vomiting: No Nausea or Vomiting Pain: Pain is tolerable per patient Peripheral Nerve Block: Patient did not receive a nerve block
[2025-07-14] MEDS: oxyCODONE 5 MG TAB PO ×2 (17:55→23:02)
[2025-07-14 21:58] LABS: Abs Immature Grans 0.08 10^3/uL (0.0-0.06); HCT 31.3 % (36.0-46.0); HGB 10.1 g/dL (11.2-15.7); Immature Grans % 0.7 %; MCH 26.6 pg (27.0-33.0); MCHC 32.3 % (32.0-36.0); MCV 83 fL (80-95); MPV 9.5 fL (8.0-11.0); Platelet Count 153 10^3/uL (130-400); RBC 3.79 10^6/uL (3.93-5.22); RDW 14.4 % (11.7-14.6); RDW-SD 42.5 fL; WBC 12.08 10^3/uL (4.4-10.8)
[2025-07-14] MEDS: Acetaminophen 325 MG TAB 650 MG PO (23:55)
[2025-07-14] MEDS: MORPHine 2 MG/ML SYR IVP (23:55)
--- NOTE | 2025-07-14 23:55 | PGE_ITS ---
Date of Service Date of service: 07/14/25 Time of Service: 23:55 Assessment and Plan Assessment and plan (1) Postoperative fever: Status: Acute Assessment and plan: 19 yo s/p PLTCS from late on 07/13/2025; EBL 75 cc's - Rh+ / Rub I / VZV NI / GBS neg - complicated by obesity, teen , depression / anxiety, mild- intermittent asthma - Intrapartum course complicated by arrest of descent - course complicated by fevers - - Lochia appropriate - Ambulating / Urinating / passing flatus / Eating - VTE prophylaxis: Ambulation and SCD's - Pain management: Toradol / Roxicodone - Narcotic counseling pending - Depression counseling pending - Contraception counseling pending - Discharge planning pending - - - - - - - - - - - - - - - - 07/15/2025 (Neymar): Received phone call from the nurse regarding concerns for fever and the patient. Nurse reported that she found the patient to feel warm on exam; when she checked her temperature she noted it to be elevated. Patient was then stripped of all of her blankets and reevaluated the fever remained. She had a CBC earlier due to reports of the patient looking a little pale (albeit lochia has been appropriate). Hemoglobin is reassuring; platelets are stable. There is no appreciable white count of concern. One I went in to evaluate the patient, she was found resting somewhat guarded in her bed with an elevated respiration rate complaining of pain across her abdomen, most notably in the upper abdomen. Her abdomen appeared modestly distended with modest tympany and decreased bowel sounds; however, the patient ate dinner (macaroni and cheese with side salad) without issue. She denies nausea / vomiting and reports passing flatus (She is not yet having BM's). Her lochia is appropriate as is her fundus; though she is noted to have a small area of drainage appreciated on the abdominal dressing. She was also noted to be tachycardic; however, the rest of her vitals are stable, she denies any chest pain, shortness of breath, dizziness / light-headedness. Heart and lung sounds are largely unremarkable outside of tachycardia. Her symptoms may be related to general discomfort from the procedure (though this does not explain the fever, which could be related to her warm room and several blankets), or infection (most commonly endometritis in these cases), or concerns surrounding the bowel (postop ileus versus more extensive concerns). Labs ordered to assess liver function (given location of pain) as well as lactic acid level. EKG ordered for tachycardia, though I suspect that this is related to her discomfort. Extra pain medication ordered (Toradol taken from 15 up to 30 mg every 6, morphine 2 Q2, Tylenol 650 every 6). UA sent. Although patient reports that the pain is consistent with what she has been experiencing all day, she appears to be in an increased level of distress relative to just a few hours ago when I first saw her. If her pain continues despite the current interventions and/or her labs are not any further suggestive, I will have a low threshold for considering imaging of the abdomen and pelvis. - - - - - - - - - - - - - - - - Exam Narrative Exam Narrative: General: Well-nourished female, somewhat guarded Pulmonary: No overt respiratory distress, though respiratory rate does appear to be elevated. Clear to auscultation bilaterally without overt evidence of crackles, rales, or wheezes Cardio: Tachycardic without overt arrhythmias or murmurs appreciated on auscultation Abdomen: Mild distention, mild tympany, no overtly appreciated bowel sounds. Incision is covered with donna dressing; small area of bloody drainage outlined in the center of the bandage. Fundus firm and low. Extremities: +1 edema noted equally bilaterally in the lower extremities. No calf tenderness. Objective Last Vital Signs Temp 102.9 F H 07/14/25 23:38 Pulse 143 H 07/14/25 23:25 Resp 97 H 07/14/25 23:11 BP 120/54 L 07/14/25 23:11 Pulse Ox 96 07/14/25 23:25 Laboratory Results - last 24 hr 07/14/25 21:36 WBC 12.08 H RBC 3.79 L Hgb 10.1 L Hct 31.3 L MCV 83 MCH 26.6 L MCHC 32.3 RDW 14.4 Plt Count 153 MPV 9.5 Immature Gran % 0.7 Neutrophils % 86.7 Lymphocytes % 8.7 Monocytes % 3.7 Eosinophils % 0.0 Basophils % 0.2 Nucleated RBC % 0.0 Absolute Neutrophils 10.47 H Absolute Lymphocytes 1.05 L Absolute Monocytes 0.45 Absolute Eosinophils 0.00 Absolute Basophils 0.02 VTE Prohylaxis Risk Level: Moderate/High Risk Contraindications: Other Prophylaxis: Mechanical and Patient ambulatory Time Spent with Patient Time Spent with Patient: 35-49 minutes Time was spent: preparing to see the patient(eg.review tests), obtaining and/or reviewing separately otained hiistory, ordering medications,tests, procedures, referring, communicating with other health daycare provider, indepentently interpreting results and counseling the patient
[2025-07-15] VITALS (14 sets, daily range): BP systolic 118–156; BP diastolic 60–92; PULSE 97–130; RESP 19–20; TEMP 36.5–39.2; O2SAT 97–100
[2025-07-15] MEDS: ceFAZolin 2 GM/50 ML BAG IVPB ×3 (00:35→15:45)
[2025-07-15 00:40] LABS: GGT 16 U/L (<38)
[2025-07-15 00:44] LABS: ALT 20 U/L (10-49); AST 20 U/L (<34); Albumin 3.4 g/dL (3.2-5.0); Alkaline Phosphatase 145 U/L (46-116); Anion Gap 11.6 mmol/L (3-11); BUN 7 mg/dL (9-23); Bilirubin, Total 0.50 mg/dL (0.2-1.2); CO2 20.4 mmol/L (20.0-31.0); Calcium 8.2 mg/dL (8.3-10.6); Chloride 109 mmol/L (98-107); Glucose 112 mg/dL (74-106); Potassium 3.5 mmol/L (3.5-5.1); Sodium 141 mmol/L (136-145); Total Protein 6.1 g/dL (5.7-8.2)
[2025-07-15] MEDS: Lactated Ringers 1,000 ML 125 ML IV ×2 (00:44→09:15)
[2025-07-15 00:51] LABS: Glucose Negative (Negative)
[2025-07-15 01:02] LABS: RBC >50 HPF (0-2)
[2025-07-15 01:03] LABS: C & S Indicated? Yes
--- NOTE | 2025-07-15 01:15 | RT.EKG_ITS ---
APPROVED REPORT Exam: Resting ECG Reason for Exam: Tachycardia Patient Location: I HR:119 bpm ECG Measurements Heart Rate 119 AXIS TN 159 P 56 QRSd 95 QRS 41 QT 320 T 27 QTc 451 Conclusion Sinus tachycardia...rate> 99 Otherwise normal ECG
[2025-07-15] MEDS: NORMAL SALINE IVPB ×3 (01:19→17:02)
[2025-07-15] MEDS: GENTAMICIN IVPB ×3 (01:19→17:02)
[2025-07-15] MEDS: MORPHine 2 MG/ML SYR IVP ×4 (01:40→11:15)
[2025-07-15] MEDS: Normal Saline - Diluent 50 ML VIAL IJ ×2 (02:32→22:26)
[2025-07-15] MEDS: Omnipaque 350 MG/ML 100 ML BTL IJ ×2 (02:32→22:25)
[2025-07-15] MEDS: Normal Saline Flush 10 ML SYR IVP ×4 (02:33→22:26)
--- NOTE | 2025-07-15 02:33 | DI.CT_ITS ---
Exam(s) CT ABDOMEN PELVIS W EXAM: CT ABDOMEN PELVIS W CLINICAL HISTORY: Post- fever and pain. TECHNIQUE: Imaging Protocol: Axial computed tomography images with coronal and sagittal reformatted images were created and reviewed CONTRAST MATERIAL: Intravenous: Omnipaque-350 100cc Oral: None COMPARISON: CT CT BRAIN CTA from 04/17/2022 FINDINGS: VISUALIZED LUNG BASES: There are mild increased markings in the posterior basal segments of both lower lobes. There are no pleural effusions.. Very mild thickening of the anterior pericardium noted consistent with small pericardial effusion. ABDOMEN: There is some gas in the subcutaneous fat of the anterior abdominal wall pannus (recent ). Also some small amount of remaining free air in the anterior pelvis. LIVER: There are no focal hepatic lesions evident. No dilated intrahepatic ducts. GALLBLADDER/BILIARY: No obvious gallbladder pathology. CBD is not dilated. PANCREAS: No evidence of pancreatic mass nor dilatation of the pancreatic duct. SPLEEN: Spleen is not enlarged. No obvious intrasplenic lesions. Splenic and portal veins are patent. ADRENALS: There are no significant adrenal masses. KIDNEYS:No cysts evident. No solid renal masses. No calculi nor hydronephrosis.. ABDOMINAL AORTA: Abdominal aorta is not enlarged. LYMPH NODES:There is no retroperitoneal nor paraaortic adenopathy. ABDOMINAL WALL: No evidence of significant anterior abdominal wall nor inguinal hernia. GI: No evidence of bowel obstruction. PELVIS: GI: No evidence of appendicitis.No evidence of sigmoid diverticulitis. LYMPH NODES: There is no intrapelvic nor inguinal adenopathy. REPRODUCTIVE: Uterus is enlarged. There is significant abnormal air within the endometrial cavity. There are also dilated veins on both sides of the uterus and adnexal regions consistent with element of pelvic congestion. These drain into prominent nonthrombosed bilateral gonadal veins. There is no evidence of intraluminal thrombus in these gonadal veins nor within the left renal vein nor within the IVC. URINARY BLADDER: Diffusely thickened urinary bladder wall although this may be exaggerated by under distension. There is also a gas bubble in the urinary bladder which is possibly related to recent catheterization. OSSEOUS: No fractures and no significant osseous lesions. IMPRESSION: 1. Fluid and abundant gas/air within the endometrial canal is a concern for endometritis. This patient has had recent . Correlate clinically. 2. Pelvic congestion syndrome also noted. The draining gonadal veins are not thrombosed. 3. There is mild diffuse thickening of the urinary bladder wall which may be exaggerated by under distension here. There is also a single gas bubble in the bladder lumen which may be related to recent catheterization. Recommend urinalysis. 4. Anterior abdominal wall findings consistent with recent to explain the air within the subcutaneous fat. There is no abscess. Preliminary virtual Radiology report was reviewed RADIATION DOSE DELIVERED: 1,090.97mGy.cm Total DLP DATA REPOSITORY: All CT scans at this facility are submitted to the National Radiology Data Registry (NRDR) Dose Index Registry (DIR) with the [employer] (A[employer]). RADIATION OPTIMIZATION: All CT scans at this facility use at least one of these dose optimization techniques: automated exposure control; mA and/or kV adjustment per patient size (includes targeted exams where dose is matched to clinical indication); or iterative reconstruction.
[2025-07-15] MEDS: Ibuprofen 600 MG TAB PO ×4 (03:12→21:18)
[2025-07-15] MEDS: Acetaminophen 325 MG TAB 650 MG PO ×4 (03:12→21:18)
--- NOTE | 2025-07-15 03:33 | DI.VRAD_ITS ---
PROCEDURE INFORMATION: Exam: CT Abdomen And Pelvis With Contrast Exam date and time: 07/15/2025 2:15 AM Age: 19 years old Clinical indication: Abdominal pain; Generalized; Prior surgery; Surgery date: Post-operative (0-2 days); Surgery type: section; Post- fever and pain TECHNIQUE: Imaging protocol: Computed tomography of the abdomen and pelvis with contrast. Radiation optimization: All CT scans at this facility use at least one of these dose optimization techniques: automated exposure control; mA and/or kV adjustment per patient size (includes targeted exams where dose is matched to clinical indication); or iterative reconstruction. Contrast material: [id number]; Contrast volume: 100 ml; Contrast route: INTRAVENOUS (IV); COMPARISON: US OB SHERRIE WEIGHT 05/24/2025 10:44 AM FINDINGS: Lungs: Mild [id number]-aatq-right basilar atelectasis and/or scarring. Liver: Unremarkable. No mass. Gallbladder and biliary ducts: No calcified gallstone. No biliary dilation. Pancreas: Unremarkable. No ductal dilation. Spleen: Unremarkable. No splenomegaly. Adrenal glands: Normal. No mass. Kidneys and ureters: Symmetric renal enhancement without mass. No hydronephrosis. Ureters are normal in course and caliber. Stomach and bowel: No evidence of bowel obstruction. No focal bowel wall thickening allowing for degree of bowel distension. Appendix: Appendix is not dilated. No evidence of acute appendicitis. Intraperitoneal space: There is mild free fluid in the pelvis. No walled-off, peripherally enhancing fluid collection within the abdomen or pelvis to suggest abscess. Few punctate foci of free air within the anterior pelvis are likely postsurgical. Vasculature: No abdominal aortic aneurysm. Lymph nodes: No pathologically enlarged lymph nodes. Urinary bladder: Bladder decompressed with mild diffuse bladder wall thickening. Few small foci of air in the anterior bladder may be related to recent catheterization, correlate clinically to exclude gas producing infection. Reproductive: Uterus is enlarged and heterogeneous in attenuation. Endometrium appears heterogeneous with mild low-attenuation intracavitary fluid and several foci of air. Bilateral adnexal and parauterine varices are present. Bones/joints: Unremarkable. No acute fracture. Soft tissues: Transversely oriented postsurgical changes of the ventral, lower abdominal wall with associated foci of soft tissue air consistent with postsurgical changes of reported recent section. No organized, walled-off body wall fluid collection. IMPRESSION: 1. Mild low-attenuation fluid within the endometrial canal with several foci of air raises concern for possible endometritis. Correlate clinically. 2. Mild free fluid in the pelvis without evidence of intra-abdominal/intrapelvic abscess. 3. Mild diffuse bladder wall thickening may relate to changes of underdistention versus acute cystitis. Correlate with urinalysis. Dictated and Authenticated by: Gianni Hernandez MD. Orderin Neymar Amaro MD
[2025-07-15] MEDS: Docusate Sodium 100 MG CAP PO (03:49)
[2025-07-15] MEDS: oxyCODONE 5 MG TAB 10 MG PO (06:12)
[2025-07-15] MEDS: Gabapentin 300 MG CAP PO ×3 (06:18→21:18)
[2025-07-15 07:06] LABS: Abs Immature Grans 0.06 10^3/uL (0.0-0.06); HCT 26.8 % (36.0-46.0); HGB 8.9 g/dL (11.2-15.7); Immature Grans % 0.6 %; MCH 27.8 pg (27.0-33.0); MCHC 33.2 % (32.0-36.0); MCV 84 fL (80-95); MPV 9.3 fL (8.0-11.0); Platelet Count 122 10^3/uL (130-400); RBC 3.20 10^6/uL (3.93-5.22); RDW 14.6 % (11.7-14.6); RDW-SD 44.4 fL; WBC 10.28 10^3/uL (4.4-10.8)
[2025-07-15 07:32] LABS: Polychromasia Present
[2025-07-15 16:52] LABS: Cannabinoids THC Negative (Negative)
--- NOTE | 2025-07-15 17:00 | OBPPV_ITS ---
Date of service: 07/15/25 Time of Service: 17:00 Assessment and Plan Assessment and plan (1) care and examination: Status: Acute Assessment and plan: 19 yo s/p PLTCS from late on 07/13/2025; EBL 75 cc's - Rh+ / Rub I / VZV NI / GBS neg - complicated by obesity, teen , depression / anxiety, mild- intermittent asthma - Intrapartum course complicated by arrest of descent - course complicated by fevers - - Lochia appropriate - Ambulating / Urinating / passing flatus / Eating - VTE prophylaxis: Ambulation and SCD's - Pain management: Toradol / Roxicodone - Narcotic counseling pending - Depression counseling pending - Contraception counseling pending - Discharge planning pending - - - - - - - - - - - - - - - - 07/15/2025 (Neymar): Received phone call from the nurse regarding concerns for fever and the patient. Nurse reported that she found the patient to feel warm on exam; when she checked her temperature she noted it to be elevated. Patient was then stripped of all of her blankets and reevaluated the fever remained. She had a CBC earlier due to reports of the patient looking a little pale (albeit lochia has been appropriate). Hemoglobin is reassuring; platelets are stable. There is no appreciable white count of concern. One I went in to evaluate the patient, she was found resting somewhat guarded in her bed with an elevated respiration rate complaining of pain across her abdomen, most notably in the upper abdomen. Her abdomen appeared modestly distended with modest tympany and decreased bowel sounds; however, the patient ate dinner (macaroni and cheese with side salad) without issue. She denies nausea / vomiting and reports passing flatus (She is not yet having BM's). Her lochia is appropriate as is her fundus; though she is noted to have a small area of drainage appreciated on the abdominal dressing. She was also noted to be tachycardic; however, the rest of her vitals are stable, she denies any chest pain, shortness of breath, dizziness / light-headedness. Heart and lung sounds are largely unremarkable outside of tachycardia. Her symptoms may be related to general discomfort from the procedure (though this does not explain the fever, which could be related to her warm room and several blankets), or infection (most commonly endometritis in these cases), or concerns surrounding the bowel (postop ileus versus more extensive concerns). Labs ordered to assess liver function (given location of pain) as well as lactic acid level. EKG ordered for tachycardia, though I suspect that this is related to her discomfort. Extra pain medication ordered (Toradol taken from 15 up to 30 mg every 6, morphine 2 Q2, Tylenol 650 every 6). UA sent. Although patient reports that the pain is consistent with what she has been experiencing all day, she appears to be in an increased level of distress relative to just a few hours ago when I first saw her. If her pain continues despite the current interventions and/or her labs are not any further suggestive, I will have a low threshold for considering imaging of the abdomen and pelvis. 07/15/2025 (Neymar): Patient has been continuing her Ancef and gentamicin. She reports feeling much better this evening. She is in good spirits and appears to be feeling well. She is ambulating, urinating, eating all without issue. Her lochia has been appropriate. Despite this, she spiked another fever this evening, and her blood pressures modestly increased. She denies any signs or symptoms of preeclampsia. CT PE performed and finds no evidence of pulmonary embolism but does show some concerns for atelectasis versus pneumonia. I am highly suspicious that this is in fact atelectasis based on the lack of white count and nature of her recovery course. Counseled on use of incentive spirometry and encouraged to use 10-15 times an hour. Also of note, patient was started on Lovenox earlier today for having spiked a fever in the middle of the afternoon despite feeling well. I had some suspicion for possible septic pelvic thrombophlebitis based on her recovery course and the intermittent spikes of fevers, therefore she was initiated on Lovenox 40 mg twice daily. - - - - - - - - - - - - - - - - Exam Physical Exam Vital signs: Temp Pulse Resp BP Pulse Ox 97.7 F 105 H 17 145/74 H 98 07/16/25 01:08 07/16/25 01:08 07/16/25 01:08 07/16/25 01:08 07/16/25 01:08 Narrative: general: Well nourished female in no immediate distress pulm: No overt respiratory distress abd: Soft, non-distedned; Incision C/D/I covered w/stable blood spot ext: trace edema noted equally bilaterally Results Hemoglobin/Hematocrit: Hgb 8.9 g/dL (11.2-15.7) L 07/15/25 06:47 Hct 26.8 % (36.0-46.0) L 07/15/25 06:47 Abnormal Lab Findings: Abnormal Labs 07/12/25 07/12/25 07/14/25 13:40 13:42 21:36 WBC 13.85 H 12.08 H RBC 3.79 L Hgb 10.1 L Hct 31.3 L MCH 26.6 L 26.6 L Plt Count Absolute Neutrophils 10.69 H 10.47 H Absolute Lymphocytes 1.05 L Absolute Monocytes Chloride 109 H Anion Gap BUN Creatinine 0.44 L Glucose Calcium Alkaline Phosphatase 185 H Urine Protein Urine Blood Urine Nitrite Urine Urobilinogen Ur Leukocyte Esterase Urine RBC 07/14/25 07/15/25 07/15/25 23:47 00:10 06:47 WBC RBC 3.20 L Hgb 8.9 L Hct 26.8 L MCH Plt Count 122 L Absolute Neutrophils 8.52 H Absolute Lymphocytes 0.82 L Absolute Monocytes 0.85 H Chloride 109 H Anion Gap 11.6 H BUN 7 L Creatinine Glucose 112 H Calcium 8.2 L Alkaline Phosphatase 145 H Urine Protein 30 H Urine Blood Large H Urine Nitrite Positive H Urine Urobilinogen 1.0 H Ur Leukocyte Esterase Small H Urine RBC >50 H
[2025-07-15] MEDS: Enoxaparin 40 MG/0.4 ML SYR SC (21:18)
--- NOTE | 2025-07-15 22:30 | DI.CT_ITS ---
Exam(s) CT CHEST PE CTA EXAM: CT CHEST PE CTA CLINICAL HISTORY: Persistent fevers and tachycardia. TECHNIQUE: Imaging Protocol: CT angiography of the chest was performed using pulmonary embolus protocol. Multi planar reconstructions were performed. CONTRAST MATERIAL: Intravenous: Omnipaque 350 Contrast volume: 90 cc COMPARISON: CT CT ABDOMEN PELVIS W from 07/15/2025 FINDINGS: CHEST: PULMONARY ARTERIES: There are no intraluminal filling defects to suggest acute pulmonary emboli. LUNGS: There is increasing infiltrate in the left lower lobe when compared to earlier same date. Also mildly increased markings in the right lung base posterior basal segment. Tiny amount of pleural fluid bilaterally.. No ominous pulmonary nodules. No findings in trachea and mainstem bronchi. MEDIASTINUM: There is no hilar nor mediastinal adenopathy. CARDIAC: Heart size normal. There is minimal pericardial thickening inferiorly. No prominent pericardial effusion.Caliber of the thoracic aorta is within normal limits. No dissection. There is no significant shift of the interventricular septum. PARTIALLY VISUALIZED UPPERMOST ABDOMEN: No obvious findings OSSEOUS: No significant osseous lesions.. IMPRESSION: 1. There is significant increase in infiltrate in the left lower lobe when compared to the uppermost images of an abdominal CT scan performed earlier same date. Consistent with developing pneumonia. 2. No evidence of pulmonary emboli. Preliminary V rad report was reviewed RADIATION DOSE DELIVERED: 220.86mGy.cm Total DLP DATA REPOSITORY: All CT scans at this facility are submitted to the National Radiology Data Registry (NRDR) Dose Index Registry (DIR) with the [employer] (A[employer]). RADIATION OPTIMIZATION: All CT scans at this facility use at least one of these dose optimization techniques: automated exposure control; mA and/or kV adjustment per patient size (includes targeted exams where dose is matched to clinical indication); or iterative reconstruction.
--- NOTE | 2025-07-15 22:42 | DI.VRAD_ITS ---
PROCEDURE INFORMATION: Exam: CTA Chest With Contrast Exam date and time: 07/15/2025 9:53 PM Age: 19 years old Clinical indication: Fever and other: Tachycardia; Persistent fevers and tachycardia TECHNIQUE: Imaging protocol: Computed tomographic angiography of the chest with contrast. Exam focused on the arteries. 3D rendering (Not supervised by radiologist): MIP and/or 3D reconstructed images were created by the technologist. Radiation optimization: All CT scans at this facility use at least one of these dose optimization techniques: automated exposure control; mA and/or kV adjustment per patient size (includes targeted exams where dose is matched to clinical indication); or iterative reconstruction. Contrast material: [id number]; Contrast volume: 90 ml; Contrast route: INTRAVENOUS (IV); COMPARISON: CR XR PORTABLE CHEST AP 07/17/2024 2:51 AM FINDINGS: Pulmonary arteries: No evidence of pulmonary embolism. Aorta: Unremarkable. No aortic aneurysm. No aortic dissection. Thyroid: No thyroid lesions. No thyroid enlargement. Trachea: The central airways clear. Lungs: Bibasilar atelectasis versus developing pneumonia, [id number]. Pleural spaces: Unremarkable. No pneumothorax. No pleural effusion. Heart: No cardiomegaly or pericardial effusion. Lymph nodes: No axillary adenopathy. Bones/joints: No acute osseous abnormality. Soft tissues: Soft tissues are unremarkable as visualized. IMPRESSION: 1. No evidence of pulmonary embolism. 2. Bibasilar atelectasis versus developing pneumonia, [id number]. Dictated and Authenticated by: Hafsa Berrios MD. Orderin Neymar Amaro MD
[2025-07-16] VITALS (7 sets, daily range): BP systolic 128–146; BP diastolic 67–96; PULSE 101–124; RESP 17–48; TEMP 36.5–38.8; O2SAT 96–98
--- NOTE | 2025-07-16 | DI.US_ITS ---
Exam(s) US ABDOMEN EXAM: US ABDOMEN CLINICAL HISTORY: fever, RUQ tenderness, elevated AST TECHNIQUE: Ultrasound of complete upper abdomen performed using standard protocol. COMPARISON: US POCUS EXAM from 06/06/[address] ABDOMEN PELVIS W from 07/15/[address] CHEST PE CTA from 07/15/2025 FINDINGS: There is no ascites evident. LIVER: There are no hepatic lesions evident nor obvious dilatation of intrahepatic ducts. GALLBLADDER/BILIARY: There is both sludge and small shadowing gallstones in the gallbladder lumen. No gallbladder wall edema nor pericholecystic. Patient was tender over this area. The common hepatic duct isnot dilated, measuring 1-2mm at the level of sadia hepatis. Patient was quite tender over the gallbladder during scanning today. PANCREAS: There is no evidence of pancreatic mass nor dilatation of the pancreatic duct. SPLEEN: The spleen is not enlarged and there are no intrasplenic lesions evident. KIDNEYS:Kidneys exhibit normal size with no evidence of solid mass, calculus, nor hydronephrosis. No cortical cysts evident. ABDOMINAL AORTA: Difficult to visualize because of overlying bowel gas IVC: Normal diameter where visualized. IMPRESSION: 1. Cholelithiasis and sludge in the gallbladder. Gallbladder is not overly distended nor edematous. The CBD is not dilated. Positive sonographic Cornejo sign demonstrated. Patient was quite tender over the gallbladder during scanning today. 2. No other significant ultrasound findings in the upper abdomen. 3. A small left pleural effusion was incidentally noted. DATA REPOSITORY:
[2025-07-16] MEDS: ceFAZolin 2 GM/50 ML BAG IVPB (00:15)
[2025-07-16] MEDS: NORMAL SALINE IVPB (01:05)
[2025-07-16] MEDS: GENTAMICIN IVPB (01:05)
[2025-07-16] MEDS: Ibuprofen 600 MG TAB PO ×4 (02:05→20:18)
[2025-07-16] MEDS: Acetaminophen 325 MG TAB 650 MG PO ×4 (02:05→20:18)
[2025-07-16] MEDS: Gabapentin 300 MG CAP PO ×3 (07:54→20:18)
[2025-07-16] MEDS: Docusate Sodium 100 MG CAP PO ×2 (08:55→20:18)
[2025-07-16] MEDS: Enoxaparin 40 MG/0.4 ML SYR SC (09:02)
--- NOTE | 2025-07-16 11:44 | OBPPV_ITS ---
Date of service: 07/16/25 Time of Service: 11:44 Assessment and Plan Assessment and plan (1) Status post primary low transverse section: Status: Acute Assessment and plan: Postoperative day #3 status post primary low-transverse due to labor arrest. She has had subsequent postoperative complications which include postoperative fever on day 2-102.8. She was treated empirically for septic pelvic thrombophlebitis and initially placed on antibiotics. She had CT scan at that time of her abdomen which was uncomplicated. The clinical working diagnosis was endometritis versus atelectasis. Clinical picture was more consistent with atelectasis and therefore subsequent antibiotic therapy was discontinued. She had a downward trend of her white blood cell count. More recently, she is continue to have some temperature spikes. She is using her incentive spirometer. Clinically my suspicion would be that her atelectasis is transitioning to a pneumonia. Will consult hospitalist for further recommendations and evaluation. Laboratory studies this afternoon are pending. Most recent CBC showed hemoglobin of 8.9 with a platelet count of 122. She is on her Lovenox therapy. Otherwise, she feels fatigued but not particularly poorly. (2) Tachypnea: Status: Acute (3) Anemia: Status: Chronic (4) fever: Status: Acute (5) Atelectasis: Status: Acute Subjective Subjective Interval history: Patient seen today midday. Patient was sleeping comfortably. Mother was co ncerned that she had a fast and irregular respiratory rate. Went to see and evaluate the patient with stable vital signs. Tachypnea however with a respiratory rate of approximately 40. On examination, patient is awake, alert, oriented. She reports no pain, no chest pain, no shortness of breath. Room air pulse ox is approximately 97% . She states that she is trying to use her incentive spirometer regularly. She has been ambulatory. She has showered. Most recent temperature recorded was 99.2. Tmax of 101.4 07/15/2025 at 22: 35. Patient is on Lovenox therapy empirically. She is currently not on antibiotic therapy, however she did receive appropriate surgical site infection prophylaxis and 24 hours of IV antibiotics with her initial temperature spike. She has had CT scan of her abdomen and subsequent CT of her chest. CT of chest does not show evidence of pulmonary embolism. She does have atelectasis left greater than right. Exam Physical Exam Vital signs: Temp Pulse Resp BP Pulse Ox 99.2 F 118 H 22 132/94 H 98 07/16/25 07:15 07/16/25 07:15 07/16/25 07:15 07/16/25 07:15 07/16/25 07:15 Constitutional Constitutional: no acute distress and morbidly obese HEENT Exam HEENT Exam: Normal Neck Exam Neck Exam: Normal Respiratory Exam Respiratory Exam: Normal Detail Cardiovascular Exam Cardiovascular: Present RRR, S1, S2 and tachycardia Abdominal Exam Abdomen: Tender Comments: incision is dressed with Mepilex Extremities Exam Extremity Exam: Normal and Edema ([place], 1+ bilateral.); negative Calf Tenderness Results Hemoglobin/Hematocrit: Hgb 8.9 g/dL (11.2-15.7) L 07/15/25 06:47 Hct 26.8 % (36.0-46.0) L 07/15/25 06:47 Abnormal Lab Findings: Abnormal Labs 07/12/25 07/12/25 07/14/25 13:40 13:42 21:36 WBC 13.85 H 12.08 H RBC 3.79 L Hgb 10.1 L Hct 31.3 L MCH 26.6 L 26.6 L Plt Count Absolute Neutrophils 10.69 H 10.47 H Absolute Lymphocytes 1.05 L Absolute Monocytes Chloride 109 H Anion Gap BUN Creatinine 0.44 L Glucose Calcium Alkaline Phosphatase 185 H Urine Protein Urine Blood Urine Nitrite Urine Urobilinogen Ur Leukocyte Esterase Urine RBC 07/14/25 07/15/25 07/15/25 23:47 00:10 06:47 WBC RBC 3.20 L Hgb 8.9 L Hct 26.8 L MCH Plt Count 122 L Absolute Neutrophils 8.52 H Absolute Lymphocytes 0.82 L Absolute Monocytes 0.85 H Chloride 109 H Anion Gap 11.6 H BUN 7 L Creatinine Glucose 112 H Calcium 8.2 L Alkaline Phosphatase 145 H Urine Protein 30 H Urine Blood Large H Urine Nitrite Positive H Urine Urobilinogen 1.0 H Ur Leukocyte Esterase Small H Urine RBC >50 H
[2025-07-16 11:58] LABS: Abs Immature Grans 0.11 10^3/uL (0.0-0.06); HCT 27.6 % (36.0-46.0); HGB 8.8 g/dL (11.2-15.7); Immature Grans % 1.3 %; MCH 26.9 pg (27.0-33.0); MCHC 31.9 % (32.0-36.0); MCV 84 fL (80-95); MPV 9.4 fL (8.0-11.0); Platelet Count 142 10^3/uL (130-400); RBC 3.27 10^6/uL (3.93-5.22); RDW 14.7 % (11.7-14.6); RDW-SD 45.1 fL; WBC 8.56 10^3/uL (4.4-10.8)
[2025-07-16 12:04] LABS: ALT 45 U/L (10-49); AST 45 U/L (<34); Albumin 3.1 g/dL (3.2-5.0); Alkaline Phosphatase 167 U/L (46-116); Anion Gap 11.4 mmol/L (3-11); BUN 6 mg/dL (9-23); Bilirubin, Total 0.50 mg/dL (0.2-1.2); CO2 22.6 mmol/L (20.0-31.0); Calcium 8.2 mg/dL (8.3-10.6); Chloride 109 mmol/L (98-107); Glucose 102 mg/dL (74-106); Potassium 3.2 mmol/L (3.5-5.1); Sodium 143 mmol/L (136-145); Total Protein 5.9 g/dL (5.7-8.2)
--- NOTE | 2025-07-16 12:38 | MCONE_ITS ---
Date of service: 07/16/25 Time of Service: 12:38 Assessment and Plan Assessment and plan (1) Pneumonia: Status: Acute Assessment and plan: With fever, new tachypnea, and focal infiltrate on CT I would treat for pneumonia despite lack of some of classic sympotms like cough/sputum. PCN allergy, but tolerating cephalosporin. Septic pelvic thrombophlebitis also diagnostic consideration, no emboli seen on CTA. See below. Given this, will cover with cefepime and metronidazole with doxy. Get MRSA PCR, only add vanco if this is positive Acidosis can cause tachypnea without much symptoms, but BMP with normal bicarb, only borderline anion gap. Exam/imaging/EKG does not suggest pp cardiomyopathy, but will follow. Blood cultures NG x 24 hr (2) pelvic thrombophlebitis: Status: Acute Assessment and plan: This is difficult to prove diagnostically, can be present even without clear clot on imaging. Covering with antibiotics as above. To treat this, anticoagulation should be at full 1mg/kg BID dosing. (3) Elevated transaminase level: Status: Acute Assessment and plan: This is new, though not severe. No biliary or liver pathology on CT. She is tender in RUQ on exam, will get u/s Must consider HELLP, follow labs, get prot/cr (4) Thrombocytopenia: Status: Chronic Assessment and plan: Noted 07/15, low normal today. BPs okay today, but some highs post . Follow CBC/CMP as above and get prot/cr. Watch platelets on LMWH (5) UTI (urinary tract infection): Status: Acute Assessment and plan: She denies symptoms other than fever, but is pretty flat and minimally communicative. Urine growing proteus and GNR, pending speciation. Above antibiotics should cover. (6) Anemia: Status: Chronic Assessment and plan: not severe, but may be contributing to respirotory symptoms. Follow. (7) Asthma: Status: Inactive Assessment and plan: Not wheezing. Not hypoxic. I don't think worth starting steroids, but will trial albuterol neb and give PRN. History of Present Illness History of Present Illness Chief Complaint: fever, tachypnea Narrative: 19 yo female, history of intermittent asthma, BMI 40s, POD #3 s/p cesarian at term after failed induction at 39 weeks who developed fever on POD#2 and increased respiratory rate today. Induction indication starting 07/12 was obestiy and scoliosis, cesarian for arrest of descent and dilation occurred overnight 07/13-07/14 around midnight and was uncomplicated. She was on routine cephazolin and gentamicin. On 07/14 at 23:11 she spiked a fever to 39.6. She denied symptoms at that time and had a benign exam. Fevers continued and CT A/P done and she was started on enoxaparin at 40mg BID dosing. On 07/16, her respiratory rate was noted to have increased from the teens to over 20. CT chest was done and hospitalist called to consult. Today she denies fevers, states she felt cold chills yesterday but not today. She denies runny nose, cough, sore throat, or sputum production, and denies even feeling short of breath lying in bed. She denies chest pain or palpitations. Her lochia has been normal per nurses. She is not . She denies any abdominal pain, urinary symptoms or diarrhea. She has been getting regular acetaminophen and iburoprofen, including this morning. She did get a flu shot 07/14. She states she usually only needs an inhaler for asthma when she is physicall active, and hasn't treated her asthma in months. Review of Systems All systems reviewed & are unremarkable except as noted in HPI and below PFSH All Active Problems (Updated 07/16/25 @ 14:37 by Jesus Shen) UTI (urinary tract infection) (Acute) Thrombocytopenia (Chronic) pelvic thrombophlebitis (Acute) Elevated transaminase level (Acute) Pneumonia (Acute) Atelectasis (Acute) fever (Acute) Anemia (Chronic) Tachypnea (Acute) care and examination (Acute) Postoperative fever (Acute) Status post primary low transverse section (Acute) 07/13/2025 female Sharon. Failed induction, labor arrest. Arrested labor (Acute) Intrapartum hemorrhage (Acute) Encounter for induction of labor (Acute) Carpal tunnel syndrome on both sides (Acute) (Acute) Susceptible to varicella (non-immune), currently (Acute) Body mass index (BMI) of 40.1 to 44.9 in adult (Acute) Patella-femoral syndrome (Acute) Acanthosis nigricans (Acute) Dependent edema (Acute) Dental caries (Acute 04/07/14) Wears glasses (Acute) Medical History Bacterial vaginosis in Constipation Scoliosis Sees a resolution specialist at [facility] [place] Dayne Bauer saw him 11/2024 Family history of diabetes mellitus in first degree relative strong family hx type 2 Mild intermittent asthma, uncomplicated (11/10/15) triggers exercise ? hot humid weather Surgical History ORAL/TEETH Family History Mother Ovarian cancer Diabetes type 2 Essential hypertension Hyperlipidemia Mental disorder DEPRESSION/ANXIETY Seizures Asthma Other No problems noted. 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 Her affect is flat and she continues to looks at cartoons on TV while answering questions with terse responses. She is cooperative. No acute distress at rest. HEENT: Head atraumatic. Conjunctiva clear, no icterus. PEERL, EOMI. no rhinorrhea. MMM, OP benign. Neck is supple with no masses or lymphadenopathy, trachea midline LUNGS: CTAB with slight prolonged expiration. Tachypeic but does not appear in respiratory distress CV: RRR with no murmurs, gallops, or rubs. ABD: active bowel sounds, soft, non-distended. Mild/moderately tender in RUQ, +murphies, slight rebound to RUQ with palpation on left. Fundus is firm at about 2 FB above umbilicus and not very tender. EXT: no cyanosis, clubbing. Trace ankle edema MSK: No joint redness or swelling NEURO: CN 2-12 grossly intact. Normal movement of 4 extremities. Normal speech and coordination. No tremor SKIN: No rashes or open wounds. PSYCH: normal mood, flat affect, normal thought process Results Last Vital Signs Temp 37.3 C 07/16/25 07:15 Pulse 118 H 07/16/25 07:15 Resp 22 07/16/25 07:15 BP 132/94 H 07/16/25 07:15 Pulse Ox 98 07/16/25 07:15 Labs 07/16/25 11:40 07/16/25 11:40 Labs: Laboratory Results - last 24 hr 07/12/25 07/16/25 11:30 11:40 WBC 8.56 RBC 3.27 L Hgb 8.8 L Hct 27.6 L MCV 84 MCH 26.9 L MCHC 31.9 L RDW 14.7 H Plt Count 142 MPV 9.4 Immature Gran % 1.3 Neutrophils % 78.7 Lymphocytes % 13.1 Monocytes % 6.2 Eosinophils % 0.2 Basophils % 0.5 Nucleated RBC % 0.0 Absolute Neutrophils 6.74 H Absolute Lymphocytes 1.12 L Absolute Monocytes 0.53 Absolute Eosinophils 0.02 Absolute Basophils 0.04 Sodium 143 Potassium 3.2 L Chloride 109 H Carbon Dioxide 22.6 Anion Gap 11.4 H BUN 6 L Creatinine 0.47 L Est GFR (CKD-EPI 2020) 169.52 Glucose 102 Calcium 8.2 L Total Bilirubin 0.50 AST 45 H ALT 45 Alkaline Phosphatase 167 H Total Protein 5.9 Albumin 3.1 L U Cannabinoids Screen Negative Imaging Chest x-ray: report reviewed and image reviewed (07/15, sinus tachycardia 119, nl intervals, no ST-T abnormalities) CT scan - chest: report reviewed (1. There is significant increase in infiltrate in the left lower lobe when compared to the uppermost images of an abdominal CT scan performed earlier same date. Consistent with developing pneumonia. 2. No evidence of pulmonary emboli.) Imaging Studies: CT A/P 07/15: 1. Mild low-attenuation fluid within the endometrial canal with several foci of air raises concern for possible endometritis. Correlate clinically. 2. Mild free fluid in the pelvis without evidence of intra-abdominal/intrapelvic abscess. 3. Mild diffuse bladder wall thickening may relate to changes of underdistention versus acute cystitis. Correlate with urinalysis.
[2025-07-16] MEDS: Albuterol 2.5 MG/3 ML INH SOLN VIAL UPD (13:46)
--- NOTE | 2025-07-16 13:58 | NUR.NOTE ---
Mother of pat concerned about the pts breathing. Pt sleeping. VS done and WNL except respiratory rate which is 48. Dr. Rodriguez and Dr. Blackmon aware. At bedside. Hospitalist consult [facility]. Hospitalist in to see pt at 1215. Nebulized treatment ordered.Nursing Note:
[2025-07-16 15:58] LABS: COVID-19 PCR Negative (Negative); RSV PCR Negative (Negative)
[2025-07-16 16:34] LABS: MRSA PCR Negative (Negative)
[2025-07-16] MEDS: Doxycycline Hyclate 100 MG CAP PO (16:48)
[2025-07-16] MEDS: Potassium Chloride 20 MEQ TABCR 40 MEQ PO (16:49)
[2025-07-16] MEDS: CEFEPIME 2 GM in Normal Saline 100 ML IVPB (16:58)
[2025-07-16] MEDS: metroNIDAZOLE 500 MG/100 ML BAG 100 MG IVPB (18:21)
[2025-07-16 18:59] LABS: BE (Venous) -1 mmol/L (-2-3); HCO3 (Venous) 23 mmol/L (23-28); TCO2 (Venous) 22 mmol/L (24-29); pCO2 (Venous) 34 mmHg (41-51); pO2 (Venous) 102 mmHg
[2025-07-16 19:00] LABS: Abs Immature Grans 0.06 10^3/uL (0.0-0.06); HCT 27.2 % (36.0-46.0); HGB 8.8 g/dL (11.2-15.7); Immature Grans % 0.9 %; MCH 26.9 pg (27.0-33.0); MCHC 32.4 % (32.0-36.0); MCV 83 fL (80-95); MPV 9.4 fL (8.0-11.0); Platelet Count 133 10^3/uL (130-400); RBC 3.27 10^6/uL (3.93-5.22); RDW 14.6 % (11.7-14.6); RDW-SD 44.4 fL; WBC 6.96 10^3/uL (4.4-10.8)
[2025-07-16 19:09] LABS: Prot/Crea Ur Ratio 0.76 mg/mg Cr
[2025-07-16 19:26] LABS: ALT 51 U/L (10-49); AST 51 U/L (<34); Albumin 3.1 g/dL (3.2-5.0); Alkaline Phosphatase 174 U/L (46-116); Anion Gap 9.1 mmol/L (3-11); BUN 8 mg/dL (9-23); Bilirubin, Total 0.50 mg/dL (0.2-1.2); CO2 22.9 mmol/L (20.0-31.0); Calcium 8.2 mg/dL (8.3-10.6); Chloride 110 mmol/L (98-107); Glucose 102 mg/dL (74-106); Potassium 3.7 mmol/L (3.5-5.1); Sodium 142 mmol/L (136-145); Total Protein 6.0 g/dL (5.7-8.2)
[2025-07-16] MEDS: Normal Saline Flush 10 ML SYR IVP (20:18)
[2025-07-16] MEDS: Enoxaparin 40 MG/0.4 ML SYR 120 MG SC (20:19)
--- NOTE | 2025-07-16 22:14 | OBPPV_ITS ---
Date of service: 07/16/25 Time of Service: 22:14 Assessment and Plan Assessment and plan (1) Status post primary low transverse section: Status: Acute Assessment and plan: Postoperative day #3 status post primary low-transverse for labor arrest. Patient's postoperative course complicated by fever on day 1, and day 2. She had a hospitalist consult today, day 3. She has now full anticoagulation for suspected septic pelvic thrombophlebitis along with broad- spectrum antibiotics including cefepime, Flagyl, and doxycycline we will continue to monitor her vital signs and laboratory studies. She will continue to ambulate, oral intake per routine. She has been passing flatus and had regular bowel movements. She is urinating without difficulty. Laboratory studies will be performed again in the morning. Clinically septic pelvic thrombophlebitis, and atelectasis with possibility of hospital-acquired pneumonia is the most likely etiology for her postoperative fevers. (2) pelvic thrombophlebitis: Status: Acute Assessment and plan: Continue full anticoagulation with Lovenox (3) Elevated transaminase level: Status: Acute Assessment and plan: Mild elevation. Stable blood pressure. Normal platelets (4) Pneumonia: Status: Acute Assessment and plan: Broad-spectrum antibiotics, incentive spirometer. Ambulation. Subjective Subjective Interval history: Patient is seen this evening. Feeling better. She is having no pain or discomfort. She has no shortness of breath or chest pain. Greatly appreciate hospitalist consult. She is currently fully anticoagulated with subcutaneous Lovenox. She has also been on IV antibiotics which have been broadened to cefepime, metronidazole and doxycycline. She is now using her incentive spirometer. She has been ambulating and tolerating regular diet. She has had a bowel movement. Blood cultures are negative to date. She is hopeful for discharge. We had a lengthy conversation today regarding the fact that she should remain afebrile for 24 hours prior to transition to oral antibiotics, and then remain afebrile on oral antibiotics prior to discharge. She will also be discharged home with her Lovenox prophylactically. She is desirous of Nexplanon for contraception prior to discharge home Patient's Mood: Appropriate Exam Physical Exam Vital signs: Temp Pulse Resp BP Pulse Ox 97.9 F 101 H 20 135/80 98 07/16/25 20:30 07/16/25 20:30 07/16/25 20:30 07/16/25 20:30 07/16/25 20:30 Vital Signs Reviewed: Yes Notable Details: Tmax 101.4 07/15/2025 at 2235 currently 97.9. Constitutional Constitutional: no acute distress and morbidly obese HEENT Exam HEENT Exam: Normal Neck Exam Neck Exam: Normal Detailed Respiratory Exam Comments: Diminished breath sounds left greater than right. No particular rales or rhonchi Detail Cardiovascular Exam Comments: Mild tachycardia, normal S2, S3, no murmurs Abdominal Exam Abdomen: Tender Comments: Incision dressed, Mepilex in place Extremities Exam Comment: Bilateral lower extremity edema. No palpable tenderness or erythema. Results Hemoglobin/Hematocrit: Hgb 8.8 g/dL (11.2-15.7) L 07/16/25 18:40 Hct 27.2 % (36.0-46.0) L 07/16/25 18:40 Abnormal Lab Findings: Abnormal Labs 07/12/25 07/12/25 07/14/25 13:40 13:42 21:36 WBC 13.85 H 12.08 H RBC 3.79 L Hgb 10.1 L Hct 31.3 L MCH 26.6 L 26.6 L MCHC RDW Plt Count Absolute Neutrophils 10.69 H 10.47 H Absolute Lymphocytes 1.05 L Absolute Monocytes VBG pH VBG pCO2 VBG Total CO2 Potassium Chloride 109 H Anion Gap BUN Creatinine 0.44 L Glucose Calcium AST ALT Alkaline Phosphatase 185 H Albumin Urine Protein Urine Blood Urine Nitrite Urine Urobilinogen Ur Leukocyte Esterase Urine RBC U Random Total Protein 07/14/25 07/15/25 07/15/25 23:47 00:10 06:47 WBC RBC 3.20 L Hgb 8.9 L Hct 26.8 L MCH MCHC RDW Plt Count 122 L Absolute Neutrophils 8.52 H Absolute Lymphocytes 0.82 L Absolute Monocytes 0.85 H VBG pH VBG pCO2 VBG Total CO2 Potassium Chloride 109 H Anion Gap 11.6 H BUN 7 L Creatinine Glucose 112 H Calcium 8.2 L AST ALT Alkaline Phosphatase 145 H Albumin Urine Protein 30 H Urine Blood Large H Urine Nitrite Positive H Urine Urobilinogen 1.0 H Ur Leukocyte Esterase Small H Urine RBC >50 H U Random Total Protein 07/16/25 07/16/25 07/16/25 11:40 16:45 18:40 WBC RBC 3.27 L 3.27 L Hgb 8.8 L 8.8 L Hct 27.6 L 27.2 L MCH 26.9 L 26.9 L MCHC 31.9 L RDW 14.7 H Plt Count Absolute Neutrophils 6.74 H Absolute Lymphocytes 1.12 L Absolute Monocytes VBG pH 7.44 H VBG pCO2 34 L VBG Total CO2 22 L Potassium 3.2 L Chloride 109 H 110 H Anion Gap 11.4 H BUN 6 L 8 L Creatinine 0.47 L 0.49 L Glucose Calcium 8.2 L 8.2 L AST 45 H 51 H ALT 51 H Alkaline Phosphatase 167 H 174 H Albumin 3.1 L 3.1 L Urine Protein Urine Blood Urine Nitrite Urine Urobilinogen Ur Leukocyte Esterase Urine RBC U Random Total Protein 88.0 H
[2025-07-17] MEDS: CEFEPIME 2 GM in Normal Saline 100 ML IVPB ×3 (00:44→15:35)
[2025-07-17 00:45] VITALS: BP 130/67; PULSE 100; RESP 17; TEMP 36.1; O2SAT 99
[2025-07-17] MEDS: metroNIDAZOLE 500 MG/100 ML BAG 100 MG IVPB ×3 (02:30→18:16)
[2025-07-17] MEDS: Doxycycline Hyclate 100 MG CAP PO ×2 (04:09→15:34)
[2025-07-17] MEDS: Acetaminophen 325 MG TAB 650 MG PO ×3 (04:09→15:34)
[2025-07-17] MEDS: Ibuprofen 600 MG TAB PO (04:09)
[2025-07-17 04:10] VITALS: BP 124/66; PULSE 92; RESP 17; TEMP 36.7; O2SAT 99
[2025-07-17 06:40] LABS: Abs Immature Grans 0.09 10^3/uL (0.0-0.06); HCT 27.4 % (36.0-46.0); HGB 8.7 g/dL (11.2-15.7); Immature Grans % 1.2 %; MCH 26.4 pg (27.0-33.0); MCHC 31.8 % (32.0-36.0); MCV 83 fL (80-95); MPV 9.6 fL (8.0-11.0); Platelet Count 147 10^3/uL (130-400); RBC 3.30 10^6/uL (3.93-5.22); RDW 14.6 % (11.7-14.6); RDW-SD 44.4 fL; WBC 7.79 10^3/uL (4.4-10.8)
[2025-07-17 07:08] LABS: ALT 54 U/L (10-49); AST 45 U/L (<34); Albumin 3.1 g/dL (3.2-5.0); Alkaline Phosphatase 178 U/L (46-116); Anion Gap 9.9 mmol/L (3-11); BUN 8 mg/dL (9-23); Bilirubin, Direct 0.1 mg/dL (<=0.3); Bilirubin, Total 0.40 mg/dL (0.2-1.2); CO2 22.1 mmol/L (20.0-31.0); Calcium 8.0 mg/dL (8.3-10.6); Chloride 110 mmol/L (98-107); Glucose 79 mg/dL (74-106); Potassium 3.6 mmol/L (3.5-5.1); Sodium 142 mmol/L (136-145); Total Protein 5.8 g/dL (5.7-8.2)
[2025-07-17 08:00] VITALS: BP 141/67; PULSE 76; TEMP 36.6
[2025-07-17] MEDS: Enoxaparin 40 MG/0.4 ML SYR 120 MG SC (08:29)
[2025-07-17] MEDS: Gabapentin 300 MG CAP PO ×3 (08:30→20:45)
--- NOTE | 2025-07-17 09:40 | PGE_ITS ---
Date of Service Date of service: 07/17/25 Time of Service: 09:42 Assessment and Plan Assessment and plan (1) Pneumonia: Status: Acute Assessment and plan: With fever, new tachypnea, and focal infiltrate on CT we started treatment for pneumonia 07/16 despite lack of some of classic sympotms like cough/sputum. PCN allergy, but tolerating cephalosporin. Flu/COVID/RSV and MRSA PCR negative. VBG reassuring, not acidotic. Septic pelvic thrombophlebitis also diagnostic consideration, no emboli seen on CTA. See below. Given this, covering with cefepime and metronidazole with doxy. Blood cultures NG x 48 hr (2) pelvic thrombophlebitis: Status: Acute Assessment and plan: This is difficult to prove diagnostically, can be present even without clear clot on imaging. Covering with antibiotics as above. To treat this, anticoagulation increased to 1mg/kg BID dosing 07/16. Continue this dosing for 48 hours after last fever, then back to prophylactic dosing for another 2 weeks per discussion with Dr. Rodriguez. (3) Pre-eclampsia in period: Status: Acute Assessment and plan: She technically meets pre-eclampsia with severe features criteria with multiple SBPs>140 spaced by >6hrs, pr/cr 0.8, and LFT abnormalities This is complicated by pneumonia, possible UTI and thrombophlebitis which can also affect labs. I did discuss this with Dr. Rodriguez. Because the trend in labs and her clinical presentation does not suggest progression to severe preclampsia and BP and proteinuria not in severe range, will defer magnesium (4) Elevated transaminase level: Status: Acute Assessment and plan: This is new, though not severe. No biliary or liver pathology on CT. Positive murphies on u/s and stones but no cholecystitis. See above re: HELLP consideration. Improving clinically and not trending worse on labs so continue to monitor. (5) Thrombocytopenia: Status: Chronic Assessment and plan: Noted 07/15, improved since then. See above re: consideration of pre- eclampsia/HELLP Benign thrombocytopenia also common in and her platelets have never been <100 platelets improved on LMWH (6) UTI (urinary tract infection): Status: Acute Assessment and plan: She denies focal symptoms other than fever. Urine growing e. coli sensitive to cephalosporins (and lory). (7) Anemia: Status: Chronic Assessment and plan: not severe, stable. Oral iron on discharge. (8) Asthma: Status: Inactive Assessment and plan: Not wheezing. Not hypoxic. I don't think steroids indicated, can use albuterol neb PRN. (9) Cholelithiasis: Status: Acute Assessment and plan: noted. No cholecystitis. Added to record for future management Discharge Planning Discharge Planning: Home 07/18 after 4pm if remains afebrile and improving clinically. Subjective Subjective Patient reports: no new complaints, feels better and voiding w/o difficulty; denies diarrhea, nausea, vomiting or fever Interval history since last seen: Events: RUQ u/s done Last febrile 38.8 on 07/16 16:14 She is feeling better today. Still no cough, and she isn't breathing heavy like she was yesterday. Appetite fine this morning. No abdominal pain, no change in lochia. Exam Narrative Exam Narrative: GEN: Alert and oriented, NAD. Smiling and more interactive today HEENT: No icterus, MMM LUNGS: CTAB, normal effort, rate normalized CV: RRR with no murmurs, gallops, or rubs. ABD: active bowel sounds, soft, non-distended. minimally tender now in RUQ, negative murphies, no longer rebound, fundus is firm at about 1 FB above umbilicus and not tender. EXT: no cyanosis, clubbing. Trace ankle edema NEURO: DTRs 2+ bilateral patella, No tremor SKIN: No rashes or open wounds. Objective Last Vital Signs Temp 36.6 C 07/17/25 08:00 Pulse 76 07/17/25 08:00 Resp 17 07/17/25 04:10 BP 141/67 H 07/17/25 08:00 Pulse Ox 99 07/17/25 04:10 Laboratory Results - last 24 hr 07/16/25 07/16/25 07/16/25 11:40 14:49 16:45 WBC 8.56 RBC 3.27 L Hgb 8.8 L Hct 27.6 L MCV 84 MCH 26.9 L MCHC 31.9 L RDW 14.7 H Plt Count 142 MPV 9.4 Immature Gran % 1.3 Neutrophils % 78.7 Lymphocytes % 13.1 Monocytes % 6.2 Eosinophils % 0.2 Basophils % 0.5 Nucleated RBC % 0.0 Absolute Neutrophils 6.74 H Absolute Lymphocytes 1.12 L Absolute Monocytes 0.53 Absolute Eosinophils 0.02 Absolute Basophils 0.04 VBG pH VBG pCO2 VBG pO2 VBG HCO3 VBG Total CO2 VBG O2 Saturation VBG Base Excess VBG Lactate Sodium 143 Potassium 3.2 L Chloride 109 H Carbon Dioxide 22.6 Anion Gap 11.4 H BUN 6 L Creatinine 0.47 L Est GFR (CKD-EPI 2020) 169.52 Glucose 102 Calcium 8.2 L Total Bilirubin 0.50 Conjugated Bilirubin AST 45 H ALT 45 Alkaline Phosphatase 167 H Total Protein 5.9 Albumin 3.1 L Ur Random Creatinine 115.20 U Random Total Protein 88.0 H U [place] Prot/Creat Ratio 0.76 COVID-19 Source Nasopharynx SARS-CoV-2 (PCR) Negative Influenza Type A (PCR) Negative Influenza Type B (PCR) Negative RSV (PCR) Negative MRSA (TEM-PCR) Negative 07/16/25 07/17/25 18:40 06:15 WBC 6.96 7.79 RBC 3.27 L 3.30 L Hgb 8.8 L 8.7 L Hct 27.2 L 27.4 L MCV 83 83 MCH 26.9 L 26.4 L MCHC 32.4 31.8 L RDW 14.6 14.6 Plt Count 133 147 MPV 9.4 9.6 Immature Gran % 0.9 1.2 Neutrophils % 72.6 66.4 Lymphocytes % 18.0 21.3 Monocytes % 7.5 8.6 Eosinophils % 0.4 2.1 Basophils % 0.6 0.4 Nucleated RBC % 0.0 0.0 Absolute Neutrophils 5.06 5.18 Absolute Lymphocytes 1.25 1.66 Absolute Monocytes 0.52 0.67 Absolute Eosinophils 0.03 0.16 Absolute Basophils 0.04 0.03 VBG pH 7.44 H VBG pCO2 34 L VBG pO2 102 VBG HCO3 23 VBG Total CO2 22 L VBG O2 Saturation VBG Base Excess -1 VBG Lactate 1.6 Sodium 142 142 Potassium 3.7 3.6 Chloride 110 H 110 H Carbon Dioxide 22.9 22.1 Anion Gap 9.1 9.9 BUN 8 L 8 L Creatinine 0.49 L 0.42 L Est GFR (CKD-EPI 2020) 161.57 193.01 Glucose 102 79 Calcium 8.2 L 8.0 L Total Bilirubin 0.50 0.40 Conjugated Bilirubin 0.1 AST 51 H 45 H ALT 51 H 54 H Alkaline Phosphatase 174 H 178 H Total Protein 6.0 5.8 Albumin 3.1 L 3.1 L Ur Random Creatinine U Random Total Protein U [place] Prot/Creat Ratio COVID-19 Source SARS-CoV-2 (PCR) Influenza Type A (PCR) Influenza Type B (PCR) RSV (PCR) MRSA (TEM-PCR) Objective Narrative Objective Narrative: ABD u/s 07/16: 1. Cholelithiasis and sludge in the gallbladder. Gallbladder is not overly distended nor edematous. The CBD is not dilated. Positive sonographic Cornejo sign demonstrated. Patient was quite tender over the gallbladder during scanning today. 2. No other significant ultrasound findings in the upper abdomen. 3. A small left pleural effusion was incidentally noted. VTE Prohylaxis Risk Level: Moderate/High Risk Contraindications: None Prophylaxis: Patient anticoagulated Time Spent with Patient Time Spent with Patient: 35-49 minutes Time was spent: preparing to see the patient(eg.review tests), obtaining and/or reviewing separately otained hiistory, ordering medications,tests, procedures, referring, communicating with other health manager intensive care, indepentently int erpreting results, counseling the patient and care coordination
[2025-07-17 10:54] VITALS: TEMP 36.6
--- NOTE | 2025-07-17 12:48 | OBPPV_ITS ---
Date of service: 07/17/25 Time of Service: 12:48 Assessment and Plan Assessment and plan (1) Status post primary low transverse section: Status: Acute Assessment and plan: Patient is day #4 status post primary low-transverse . Her course is complicated by the fact that she developed a postop fever with a negative CT scan of her abdomen. She was placed empirically on antibiotics and subsequently spiked a temp again. She had CT scan of the chest showing atelectasis left greater than right. At that point, with atelectasis as the primary diagnosis, antibiotic therapy was stopped and incentive spirometry and active ambulation ensued. She was also placed empirically on Lovenox prophylactically for the potential of septic pelvic thrombophlebitis. Again she spiked a temperature despite these measures and the working diagnosis was pneumonia. Hospitalist were consulted. She was placed on broad-spectrum antibiotic coverage and at this point has remained afebrile nearing 24 hours. If she remains afebrile at this point, she will be converted from IV to oral antibiotic therapy. If she remains afebrile on orals, we would consider discharge home with close follow-up. (2) pelvic thrombophlebitis: Status: Acute Assessment and plan: Patient is currently receiving full dose anticoagulation. At the point of return to normal temperatures and remaining afebrile for 48 hours, would transition to prophylactic dose for a 2-week course as an outpatient. (3) Thrombocytopenia: Status: Chronic Assessment and plan: Thrombocytopenia is resolved. Throughout the course of her stay, she has had intermittently elevated blood pressures which do not meet criteria for severe range pressures, however she did have a slight ghulam and her platelet count and a slight elevation in the liver enzymes which are now improving. Help syndrome remains in the diagnoses, however with her clinical stability, and appropriate blood pressures along with indication for diuresis, I do not feel it warranted that she be placed on magnesium for prophylaxis. I do think that this would only confound her pulmonary status with both her history of asthma and atelectasis possible pneumonia. Will continue to watch closely for worsening of blood pressures or clinical indicators. (4) UTI (urinary tract infection): Status: Acute Assessment and plan: Patient is growing E. coli sensitive to cephalosporins. This should be covered with her current regime. Subjective Subjective Interval history: Patient seen and examined. Overall doing significantly better today. She has been afebrile with a Tmax of 101.4 on 07/15/2025. Plan for today is that if she remained afebrile, we will convert her to oral antibiotic therapy to complete a course for treatment of her pneumonia. If she remains afebrile after 24 hours on oral antibiotics, would consider discharge to home. She states her pain is reasonably well-controlled. She denies shortness of breath or chest pain. Overall she is feeling better today. [place] baby status: Doing well and Bottle feeding well Exam Physical Exam Vital signs: Temp Pulse Resp BP Pulse Ox 97.9 F 76 17 141/67 H 99 07/17/25 10:54 07/17/25 08:00 07/17/25 04:10 07/17/25 08:00 07/17/25 04:10 Vital Signs Reviewed: Yes Notable Details: Tmax, 101.4 07/15/2025- Constitutional Constitutional: no acute distress and morbidly obese HEENT Exam HEENT Exam: Normal Neck Exam Neck Exam: Normal Respiratory Exam Respiratory Exam: Normal Cardiovascular Exam Cardiovascular Exam: Normal Abdominal Exam Abdomen: Tender Comments: Dressing intact and in place Extremities Exam Extremity Exam: Normal and Edema (2+ bilateral); negative Calf Tenderness Results Hemoglobin/Hematocrit: Hgb 8.7 g/dL (11.2-15.7) L 07/17/25 06:15 Hct 27.4 % (36.0-46.0) L 07/17/25 06:15 Abnormal Lab Findings: Abnormal Labs 07/12/25 07/12/25 07/14/25 13:40 13:42 21:36 WBC 13.85 H 12.08 H RBC 3.79 L Hgb 10.1 L Hct 31.3 L MCH 26.6 L 26.6 L MCHC RDW Plt Count Absolute Neutrophils 10.69 H 10.47 H Absolute Lymphocytes 1.05 L Absolute Monocytes VBG pH VBG pCO2 VBG Total CO2 Potassium Chloride 109 H Anion Gap BUN Creatinine 0.44 L Glucose Calcium AST ALT Alkaline Phosphatase 185 H Albumin Urine Protein Urine Blood Urine Nitrite Urine Urobilinogen Ur Leukocyte Esterase Urine RBC U Random Total Protein 07/14/25 07/15/25 07/15/25 23:47 00:10 06:47 WBC RBC 3.20 L Hgb 8.9 L Hct 26.8 L MCH MCHC RDW Plt Count 122 L Absolute Neutrophils 8.52 H Absolute Lymphocytes 0.82 L Absolute Monocytes 0.85 H VBG pH VBG pCO2 VBG Total CO2 Potassium Chloride 109 H Anion Gap 11.6 H BUN 7 L Creatinine Glucose 112 H Calcium 8.2 L AST ALT Alkaline Phosphatase 145 H Albumin Urine Protein 30 H Urine Blood Large H Urine Nitrite Positive H Urine Urobilinogen 1.0 H Ur Leukocyte Esterase Small H Urine RBC >50 H U Random Total Protein 07/16/25 07/16/25 07/16/25 11:40 16:45 18:40 WBC RBC 3.27 L 3.27 L Hgb 8.8 L 8.8 L Hct 27.6 L 27.2 L MCH 26.9 L 26.9 L MCHC 31.9 L RDW 14.7 H Plt Count Absolute Neutrophils 6.74 H Absolute Lymphocytes 1.12 L Absolute Monocytes VBG pH 7.44 H VBG pCO2 34 L VBG Total CO2 22 L Potassium 3.2 L Chloride 109 H 110 H Anion Gap 11.4 H BUN 6 L 8 L Creatinine 0.47 L 0.49 L Glucose Calcium 8.2 L 8.2 L AST 45 H 51 H ALT 51 H Alkaline Phosphatase 167 H 174 H Albumin 3.1 L 3.1 L Urine Protein Urine Blood Urine Nitrite Urine Urobilinogen Ur Leukocyte Esterase Urine RBC U Random Total Protein 88.0 H 07/17/25 06:15 WBC RBC 3.30 L Hgb 8.7 L Hct 27.4 L MCH 26.4 L MCHC 31.8 L RDW Plt Count Absolute Neutrophils Absolute Lymphocytes Absolute Monocytes VBG pH VBG pCO2 VBG Total CO2 Potassium Chloride 110 H Anion Gap BUN 8 L Creatinine 0.42 L Glucose Calcium 8.0 L AST 45 H ALT 54 H Alkaline Phosphatase 178 H Albumin 3.1 L Urine Protein Urine Blood Urine Nitrite Urine Urobilinogen Ur Leukocyte Esterase Urine RBC U Random Total Protein 07/14/25 23:47 Urine - Reflex from Ua Urine Culture - Final Escherichia coli Gram positive lory, mixed Gram negative preeti Additional Findings Results: Laboratories studies remain stable to improved. Hemoglobin stable at 8.7. Platelet count increasing to 147 today. White blood cell count remains normal at 7.7 with no left shift. Mild elevation in liver enzymes remain stable to improving.
[2025-07-17 15:23] VITALS: BP 130/72; PULSE 84; TEMP 37.5
[2025-07-17] MEDS: Normal Saline Flush 10 ML SYR IVP ×2 (15:36→20:45)
[2025-07-17 20:45] VITALS: BP 132/74; PULSE 88; RESP 17; TEMP 37.2; O2SAT 99
[2025-07-17] MEDS: Enoxaparin 120 MG/0.8 ML SYR SC (20:45)
[2025-07-18] MEDS: CEFEPIME 2 GM in Normal Saline 100 ML IVPB ×3 (00:34→15:15)
[2025-07-18 00:48] VITALS: BP 128/72; PULSE 86; RESP 17; TEMP 37.1; O2SAT 99
[2025-07-18] MEDS: metroNIDAZOLE 500 MG/100 ML BAG 100 MG IVPB ×3 (01:13→15:45)
[2025-07-18] MEDS: Doxycycline Hyclate 100 MG CAP PO (05:16)
[2025-07-18 05:34] VITALS: BP 132/72; PULSE 89; RESP 17; TEMP 36.8; O2SAT 99
[2025-07-18 06:35] LABS: HCT 29.3 % (36.0-46.0); HGB 9.4 g/dL (11.2-15.7); MCH 26.3 pg (27.0-33.0); MCHC 32.1 % (32.0-36.0); MCV 82 fL (80-95); MPV 9.0 fL (8.0-11.0); Platelet Count 184 10^3/uL (130-400); RBC 3.58 10^6/uL (3.93-5.22); RDW 14.2 % (11.7-14.6); RDW-SD 42.6 fL; WBC 10.91 10^3/uL (4.4-10.8)
[2025-07-18 06:55] LABS: ALT 45 U/L (10-49); AST 24 U/L (<34); Albumin 3.3 g/dL (3.2-5.0); Alkaline Phosphatase 174 U/L (46-116); Anion Gap 11.7 mmol/L (3-11); BUN 7 mg/dL (9-23); Bilirubin, Total 0.30 mg/dL (0.2-1.2); CO2 22.3 mmol/L (20.0-31.0); Calcium 8.3 mg/dL (8.3-10.6); Chloride 108 mmol/L (98-107); Glucose 80 mg/dL (74-106); Potassium 3.3 mmol/L (3.5-5.1); Sodium 142 mmol/L (136-145); Total Protein 6.2 g/dL (5.7-8.2)
[2025-07-18] MEDS: Enoxaparin 120 MG/0.8 ML SYR SC (07:57)
[2025-07-18 08:10] VITALS: BP 132/79; PULSE 98; RESP 17; TEMP 37.1; O2SAT 97
--- NOTE | 2025-07-18 08:34 | W.PM.OBPNV1 ---
Date of service: 07/18/25 Time of Service: 08:34 Assessment and Plan Assessment and plan (1) Status post primary low transverse section: Status: Acute Assessment and plan: postoperative postoperative day #5 status post primary left transverse section for labor arrest. (2) pelvic thrombophlebitis: Status: Acute Assessment and plan: Suspicion for septic pelvic thrombophlebitis. Patient has been fully anticoagulated at this point. She had IV antibiotics and was held in A-fib for just shy of 48 hours. She will continue her IV antibiotic prophylaxis for a total of 48 hours. She will be transition from full dose Lovenox to prophylactic Lovenox at home for the next 2 weeks. (3) Thrombocytopenia: Status: Chronic Assessment and plan: Resolved (4) UTI (urinary tract infection): Status: Acute Assessment and plan: Currently covered with broad-spectrum antibiotics. (5) Elevated transaminase level: Status: Acute Assessment and plan: Resolved (6) Anemia: Status: Chronic Assessment and plan: Remains stable (7) Pneumonia: Status: Acute Assessment and plan: Transition from IV to oral antibiotic therapy. Will complete her course of antibiotic at home. Subjective Subjective Interval history: Patient seen and examined this morning. Overall doing well she has remained afebrile for greater than 36 hours. We discussed the plan for the day. She will receive her morning, and afternoon antibiotics. At that point, IV antibiotics will be discontinued if she remains afebrile and she may be discharged home. She will complete 5 days of antibiotic therapy orally. She will be transition from full dose to prophylactic Lovenox. She will be seen in the office in 2 days. Patient comments: No complaints [place] baby status: Doing well and Bottle feeding well [place] feeding status: Exclusively formula feeding Exam Physical Exam Vital signs: Temp Pulse Resp BP Pulse Ox 98.7 F 98 H 17 132/79 97 07/18/25 08:10 07/18/25 08:10 07/18/25 08:10 07/18/25 08:10 07/18/25 08:10 Vital Signs Reviewed: Yes Constitutional Constitutional: no acute distress, morbidly obese and cooperative Detailed HEENT Exam Head: Present normocephalic and atraumatic Eye: Present EOMI Neck Exam Neck Exam: Normal Detailed Respiratory Exam Respiratory: Present decreased breath sounds (Left greater than right) and rhonchi; Absent rales, wheezes or crackles Detail Cardiovascular Exam Cardiovascular: Present RRR, S1 and S2; Absent murmur, S3 or S4 Abdominal Exam Abdomen: Tender Comments: Marked tenderness. Dressing in place. Small area of shadowing in the midline, no progression. No ecchymosis. Fundal Exam Fundus: Below Umbilicus and Firm Extremities Exam Extremity Exam: Normal and Edema; negative Calf Tenderness Skin Exam Skin Exam: Normal Neurological Exam Neurological Exam: Normal Results Hemoglobin/Hematocrit: Hgb 9.4 g/dL (11.2-15.7) L 07/18/25 06:10 Hct 29.3 % (36.0-46.0) L 07/18/25 06:10 Abnormal Lab Findings: Abnormal Labs 07/12/25 07/12/25 07/14/25 13:40 13:42 21:36 WBC 13.85 H 12.08 H RBC 3.79 L Hgb 10.1 L Hct 31.3 L MCH 26.6 L 26.6 L MCHC RDW Plt Count Absolute Neutrophils 10.69 H 10.47 H Absolute Lymphocytes 1.05 L Absolute Monocytes VBG pH VBG pCO2 VBG Total CO2 Potassium Chloride 109 H Anion Gap BUN Creatinine 0.44 L Glucose Calcium AST ALT Alkaline Phosphatase 185 H Albumin Urine Protein Urine Blood Urine Nitrite Urine Urobilinogen Ur Leukocyte Esterase Urine RBC U Random Total Protein 07/14/25 07/15/25 07/15/25 23:47 00:10 06:47 WBC RBC 3.20 L Hgb 8.9 L Hct 26.8 L MCH MCHC RDW Plt Count 122 L Absolute Neutrophils 8.52 H Absolute Lymphocytes 0.82 L Absolute Monocytes 0.85 H VBG pH VBG pCO2 VBG Total CO2 Potassium Chloride 109 H Anion Gap 11.6 H BUN 7 L Creatinine Glucose 112 H Calcium 8.2 L AST ALT Alkaline Phosphatase 145 H Albumin Urine Protein 30 H Urine Blood Large H Urine Nitrite Positive H Urine Urobilinogen 1.0 H Ur Leukocyte Esterase Small H Urine RBC >50 H U Random Total Protein 07/16/25 07/16/25 07/16/25 11:40 16:45 18:40 WBC RBC 3.27 L 3.27 L Hgb 8.8 L 8.8 L Hct 27.6 L 27.2 L MCH 26.9 L 26.9 L MCHC 31.9 L RDW 14.7 H Plt Count Absolute Neutrophils 6.74 H Absolute Lymphocytes 1.12 L Absolute Monocytes VBG pH 7.44 H VBG pCO2 34 L VBG Total CO2 22 L Potassium 3.2 L Chloride 109 H 110 H Anion Gap 11.4 H BUN 6 L 8 L Creatinine 0.47 L 0.49 L Glucose Calcium 8.2 L 8.2 L AST 45 H 51 H ALT 51 H Alkaline Phosphatase 167 H 174 H Albumin 3.1 L 3.1 L Urine Protein Urine Blood Urine Nitrite Urine Urobilinogen Ur Leukocyte Esterase Urine RBC U Random Total Protein 88.0 H 07/17/25 07/18/25 06:15 06:10 WBC 10.91 H RBC 3.30 L 3.58 L Hgb 8.7 L 9.4 L Hct 27.4 L 29.3 L MCH 26.4 L 26.3 L MCHC 31.8 L RDW Plt Count Absolute Neutrophils Absolute Lymphocytes Absolute Monocytes VBG pH VBG pCO2 VBG Total CO2 Potassium 3.3 L Chloride 110 H 108 H Anion Gap 11.7 H BUN 8 L 7 L Creatinine 0.42 L 0.50 L Glucose Calcium 8.0 L AST 45 H ALT 54 H Alkaline Phosphatase 178 H 174 H Albumin 3.1 L Urine Protein Urine Blood Urine Nitrite Urine Urobilinogen Ur Leukocyte Esterase Urine RBC U Random Total Protein 07/14/25 23:47 Urine - Reflex from Ua Urine Culture - Final Escherichia coli Gram positive lory, mixed Gram negative preeti
[2025-07-18] MEDS: Gabapentin 300 MG CAP PO (08:53)
--- NOTE | 2025-07-18 09:25 | W.PM.OBDISCH ---
Date of service: 07/18/25 Time of Service: 09:25 DS: Diagnosis Discharge Diagnosis (1) Status post primary low transverse section: Status: Acute Asessment and Plan: Postoperative day #5 status post primary low-transverse due to labor arrest. complexity and she had postoperative fever, working diagnosis of septic pelvic was thrombophlebitis, bibasilar atelectasis left greater than right with superimposed pneumonia. Mild elevation in liver enzymes, resolved, mild thrombocytopenia resolved. Patient never met criteria for preeclampsia related to blood pressure, however. She had complete resolution of her laboratory abnormalities and the decision was made for no magnesium sulfate prophylaxis in light of her already underlying complex pulmonary state. She was discharged home, postoperative day #5. She will complete a course of antibiotic therapy with cefpodoxime and doxycycline. She is transition from full dose Lovenox therapy which is 120 mg twice daily to prophylactic dosing, 40 mg twice daily for completion of additional 2-day course. She will be seen in short interval follow-up in the office in 2 days, and then again at 2 and 6 weeks. (2) pelvic thrombophlebitis: Status: Acute Asessment and Plan: Afebrile. No antibiotic therapy for this indication. Continue her Lovenox subcu prophylactically, 40 mg twice daily. (3) Thrombocytopenia: Status: Chronic Asessment and Plan: Resolved (4) UTI (urinary tract infection): Status: Acute Asessment and Plan: On antibiotic therapy (5) Elevated transaminase level: Status: Acute Asessment and Plan: Resolved (6) Anemia: Status: Chronic Asessment and Plan: Stable. Continue vitamins. (7) Pneumonia: Status: Acute Asessment and Plan: Completion of her course of antibiotics. Prescription sent to pharmacy. Continue incentive spirometry. She Discharge Plan Disposition Patient Disposition: Home Anticipated Discharge Date/Time: 07/18/25 17:59 Condition: Good Discharge Details Reason For Visit: Induction of Labor Admit Date/Time: 07/12/25 10:27 Admit Provider: Dejah Del Rio Attending Provider: Dejah Del Rio Primary Care Provider: Yoly Caldwell [facility] Hospital Course: This patient was admitted to the [facility] for labor induction at term. This was due to comorbidities including morbid obesity, potential for difficult regional analgesia if needed. She had cervical ripening via misoprostol and subsequently dilated her cervix to approximately 2 cm. Anesthesia was consulted and placed an epidural for pain control. She had artificial rupture of membranes and Pitocin augmentation of labor. She had full internal monitoring with adequate uterine contractions and subsequently had a labor arrest. She underwent a primary low-transverse on 07/13/2025. She had delivery of a viable female infant with a relatively uncomplicated . Qualitative blood loss was 475 mL. Her postoperative progress however, was more complex postoperative day 2 she developed a postoperative fever and tachycardia. She had increasing pain and evaluation at that time. She was placed empirically on antibiotics. She had a CT scan performed which ruled out any significant intra-abdominal or pelvic pathology. She had evidence of postoperative changes. She was also noted to have some atelectasis which may have contributed to her postoperative fever. At that point, she was transitioned off of her antibiotics and onto aggressive pulmonary management with incentive spirometer. Subsequent to this, she did have a second elevation temperature. Laboratory studies were performed in a serial fashion. Consultation with hospitalist service. Working diagnoses at that time which included septic pelvic thrombophlebitis for which she was anticoagulated and atelectasis probable pneumonia. Antibiotic regime was transitioned and over the course of the next 2 days, she remained afebrile. She was transition to oral antibiotic therapy for discharge home. She was also de-escalated from full anticoagulation to prophylactic anticoagulation with Lovenox, 40 mg subcu twice daily at home. Patient is interested in Nexplanon for contraception. This will be placed in the office after completion of her anticoagulation course. During the course of her stay, she also had a CT scan of the chest to rule out pulmonary embolism which was normal with the exception of her atelectasis. She had mild elevations in her transaminases which resolved spontaneously. She also had a slight diminishment in her platelet count which also resolved spontaneously. Clinically, she is stable for discharge at this point, and postoperative day #5. Antibiotic prescription sent to the pharmacy. Lovenox sent to pharmacy. Pain medications sent to the pharmacy. She will be seen in the office in short follow-up in 48 hours. Home nursing supportive services were offered. Home Meds and New Rx's Prescriptions: New cefpodoxime 200 mg tablet 200 mg PO BID Qty: 10 0RF Rx Instructions: must administer with a meal/food doxycycline hyclate 100 mg capsule 100 mg PO BID 3 Days Qty: 10 0RF ibuprofen 600 mg tablet 600 mg PO Q6H PRNQty: 60 1RF oxycodone 5 mg tablet 5 mg PO Q6H PRNQty: 10 0RF docusate sodium [Colace] 100 mg capsule 100 mg PO BID Qty: 30 1RF enoxaparin [Lovenox] 40 mg/0.4 mL syringe 40 mg subcut Q12H Qty: 4 2RF No Action albuterol sulfate 90 mcg/actuation HFA aerosol inhaler 2 puff IH Q4H PRN aspirin 81 mg tablet,delayed release (DR/EC) 162 mg PO DAILY Qty: 60 6RF Plus Vitamin-Mineral 27 mg iron- 1 mg tablet 1 tab PO DAILY Qty: 90 4RF lidocaine [Lidoderm] 5 % adhesive patch,medicated 1 patch Topical Q24H Qty: 15 0RF Discharge Instructions Additional Instructions: Follow up with Dr. Rodriguez on Saturday after WIC appointment Insentive spirometer q 15 minutes every 1-2 hours Stand Alone Forms: Portal Information Activity:: Pelvic Rest Equipment/Supplies:: No Equipment Needed Diet:: As Tolerated Discharge Orders Discharge Orders: Discharge Order (Routine); Ordered 07/18/25 Ordered By: Mckenzie Rodriguez OB:DS Summary Summary Episiotomy Description: None Laceration Description: None Laceration Extension: N/A Contraception Discussed Contraception Discussed: Yes Contraceptive Plan: Levonorgestrel Implant (Will place , 2 weeks.), Gender-Baby A: Female weight: 7 lb 15.163 oz Status at Discharge Functional status at discharge: independent ambulation Overall status at discharge: patient is progressing back to baseline Mental Status: mental status grossly normal Speech and Movement: speech and movement normal Mood: congruent mood Affect: normal affect Exam Physical Exam Vital signs: Temp Pulse Resp BP Pulse Ox 98.7 F 98 H 17 132/79 97 07/18/25 08:10 07/18/25 08:10 07/18/25 08:10 07/18/25 08:10 07/18/25 08:10 PFSH All Active Problems (Updated 07/17/25 @ 10:12 by Jesus Shen) Cholelithiasis (Acute) Pre-eclampsia in period (Acute) UTI (urinary tract infection) (Acute) Thrombocytopenia (Chronic) pelvic thrombophlebitis (Acute) Elevated transaminase level (Acute) Pneumonia (Acute) Atelectasis (Acute) fever (Acute) Anemia (Chronic) Tachypnea (Acute) care and examination (Acute) Postoperative fever (Acute) Status post primary low transverse section (Acute) 07/13/2025 female Sharon. Failed induction, labor arrest. Arrested labor (Acute) Intrapartum hemorrhage (Acute) Encounter for induction of labor (Acute) Carpal tunnel syndrome on both sides (Acute) (Acute) Wears glasses (Acute) Dental caries (Acute 04/07/14) Susceptible to varicella (non-immune), currently (Acute) Body mass index (BMI) of 40.1 to 44.9 in adult (Acute) Patella-femoral syndrome (Acute) Acanthosis nigricans (Acute) Dependent edema (Acute) Medical History Bacterial vaginosis in Constipation Scoliosis Sees a traffic control specialist at [facility] [place] Dayne Bauer saw him 11/2024 Family history of diabetes mellitus in first degree relative strong family hx type 2 Mild intermittent asthma, uncomplicated (11/10/15) triggers exercise ? hot humid weather Surgical History ORAL/TEETH Family History Mother Ovarian cancer Diabetes type 2 Essential hypertension Hyperlipidemia Mental disorder DEPRESSION/ANXIETY Seizures Asthma Other No problems noted. 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 Pets and animals: Yes Pets and animals: cat(s), bird(s) and other Details: rabbit Do you feel safe at home: Yes Do you feel safe in your relationship?: Yes Additional Social history: lives with her mother (Griselda) Female Reproductive History Menstrual control method: none History History 1 Para 0 Hx # Term Pregnancies 0 Multiple births 0 Hx # Pregnancies 0 Ectopic pregnancies 0 AB induced 0 Hx Number of Living Children 0 AB spontaneous 0 DS: Data Vitals/I&O Vitals and I&O: Vital Signs Temperature 98.7 F 07/18/25 08:10 Temperature Source Oral 07/18/25 08:10 Pulse 98 H 07/18/25 08:10 Pulse Rhythm Regular 07/18/25 08:17 Respiratory Rate 17 07/18/25 08:10 Blood Pressure 132/79 07/18/25 08:10 Blood Pressure Mean 96 07/18/25 08:10 Pulse Oximetry 97 07/18/25 08:10 Oxygen Delivery Method Room Air 07/12/25 10:41 Oxygen Flow Rate 0 07/12/25 10:41 Pain Level 2 07/17/25 20:45 Comment KEITH Lares aware of vitals 07/16/25 07:15 Intake & Output 07/17/25 07/17/25 07/18/25 11:59 23:59 11:59 Intake Total 300 / 600 300 / 600 300 / 300 Balance 300 / 600 300 / 600 300 / 300 Intake: IV 300 / 600 300 / 600 300 / 300 Other: Urine Color Yellow Yellow Yellow Data Completed and Pending Pending Labs at Discharge: 07/12/25 07/12/25 07/12/25 11:30 13:40 13:42 WBC 13.85 H RBC 4.40 Hgb 11.7 Hct 36.2 MCV 82 MCH 26.6 L MCHC 32.3 RDW 13.9 Plt Count 179 MPV 9.1 Immature Gran % 0.4 Neutrophils % 77.2 Lymphocytes % 16.6 Monocytes % 5.1 Eosinophils % 0.4 Basophils % 0.3 Nucleated RBC % 0.0 Absolute Neutrophils 10.69 H Absolute Lymphocytes 2.30 Absolute Monocytes 0.71 Absolute Eosinophils 0.06 Absolute Basophils 0.04 RBC Morphology Polychromasia VBG pH VBG pCO2 VBG pO2 VBG HCO3 VBG Total CO2 VBG O2 Saturation VBG Base Excess VBG Lactate Sodium 140 Potassium 3.6 Chloride 109 H Carbon Dioxide 21.5 Anion Gap 9.5 BUN 9 Creatinine 0.44 L Est GFR (CKD-EPI 2020) 182.95 Glucose 87 Calcium 8.7 Total Bilirubin 0.30 Conjugated Bilirubin GGT AST 15 ALT 20 Alkaline Phosphatase 185 H Total Protein 7.0 Albumin 3.8 Urine Color Urine Clarity Urine pH Ur Specific [place] Urine Protein Urine Ketones Urine Blood Urine Nitrite Urine Bilirubin Urine Urobilinogen Ur Leukocyte Esterase Urine RBC Urine WBC Ur Epithelial Cells Urine Crystals Urine Bacteria Urine Mucus Ur Culture Indicated? Ur Random Creatinine U Random Total Protein U [place] Prot/Creat Ratio Urine Glucose Urine Opiates Screen Negative Ur Buprenorphine Pending Ur Norbuprenorphine Pending Urine Methadone Screen Negative Urine Fentanyl Screen Negative Ur Barbiturates Screen Negative Ur Tricyclics Screen Negative Ur Amphetamines Screen Negative U Benzodiazepines Scrn Negative Urine Cocaine Screen Negative U Cannabinoids Screen Negative COVID-19 Source SARS-CoV-2 (PCR) Influenza Type A (PCR) Influenza Type B (PCR) RSV (PCR) MRSA (TEM-PCR) ABO/Rh A Positive Antibody Screen NEGATIVE 07/14/25 07/14/25 07/15/25 21:36 23:47 00:10 WBC 12.08 H RBC 3.79 L Hgb 10.1 L Hct 31.3 L MCV 83 MCH 26.6 L MCHC 32.3 RDW 14.4 Plt Count 153 MPV 9.5 Immature Gran % 0.7 Neutrophils % 86.7 Lymphocytes % 8.7 Monocytes % 3.7 Eosinophils % 0.0 Basophils % 0.2 Nucleated RBC % 0.0 Absolute Neutrophils 10.47 H Absolute Lymphocytes 1.05 L Absolute Monocytes 0.45 Absolute Eosinophils 0.00 Absolute Basophils 0.02 RBC Morphology Polychromasia VBG pH VBG pCO2 VBG pO2 VBG HCO3 VBG Total CO2 VBG O2 Saturation VBG Base Excess VBG Lactate 1.1 Sodium 141 Potassium 3.5 Chloride 109 H Carbon Dioxide 20.4 Anion Gap 11.6 H BUN 7 L Creatinine 0.58 Est GFR (CKD-EPI 2020) 133.00 Glucose 112 H Calcium 8.2 L Total Bilirubin 0.50 Conjugated Bilirubin GGT 16 AST 20 ALT 20 Alkaline Phosphatase 145 H Total Protein 6.1 Albumin 3.4 Urine Color Yellow Urine Clarity Turbid Urine pH 6.5 Ur Specific [place] 1.015 Urine Protein 30 H Urine Ketones Negative Urine Blood Large H Urine Nitrite Positive H Urine Bilirubin Negative Urine Urobilinogen 1.0 H Ur Leukocyte Esterase Small H Urine RBC >50 H Urine WBC Ur Epithelial Cells Not Applicable Urine Crystals Not Applicable Urine Bacteria Not Applicable Urine Mucus Not Applicable Ur Culture Indicated? Yes Ur Random Creatinine U Random Total Protein U [place] Prot/Creat Ratio Urine Glucose Negative Urine Opiates Screen Ur Buprenorphine Ur Norbuprenorphine Urine Methadone Screen Urine Fentanyl Screen Ur Barbiturates Screen Ur Tricyclics Screen Ur Amphetamines Screen U Benzodiazepines Scrn Urine Cocaine Screen U Cannabinoids Screen COVID-19 Source SARS-CoV-2 (PCR) Influenza Type A (PCR) Influenza Type B (PCR) RSV (PCR) MRSA (TEM-PCR) ABO/Rh Antibody Screen 07/15/25 07/16/25 07/16/25 06:47 11:40 14:49 WBC 10.28 8.56 RBC 3.20 L 3.27 L Hgb 8.9 L 8.8 L Hct 26.8 L 27.6 L MCV 84 84 MCH 27.8 26.9 L MCHC 33.2 31.9 L RDW 14.6 14.7 H Plt Count 122 L 142 MPV 9.3 9.4 Immature Gran % 0.6 1.3 Neutrophils % 82.8 78.7 Lymphocytes % 8.0 13.1 Monocytes % 8.3 6.2 Eosinophils % 0.1 0.2 Basophils % 0.2 0.5 Nucleated RBC % 0.0 0.0 Absolute Neutrophils 8.52 H 6.74 H Absolute Lymphocytes 0.82 L 1.12 L Absolute Monocytes 0.85 H 0.53 Absolute Eosinophils 0.01 0.02 Absolute Basophils 0.02 0.04 RBC Morphology See Below Polychromasia Present VBG pH VBG pCO2 VBG pO2 VBG HCO3 VBG Total CO2 VBG O2 Saturation VBG Base Excess VBG Lactate Sodium 143 Potassium 3.2 L Chloride 109 H Carbon Dioxide 22.6 Anion Gap 11.4 H BUN 6 L Creatinine 0.47 L Est GFR (CKD-EPI 2020) 169.52 Glucose 102 Calcium 8.2 L Total Bilirubin 0.50 Conjugated Bilirubin GGT AST 45 H ALT 45 Alkaline Phosphatase 167 H Total Protein 5.9 Albumin 3.1 L Urine Color Urine Clarity Urine pH Ur Specific [place] Urine Protein Urine Ketones Urine Blood Urine Nitrite Urine Bilirubin Urine Urobilinogen Ur Leukocyte Esterase Urine RBC Urine WBC Ur Epithelial Cells Urine Crystals Urine Bacteria Urine Mucus Ur Culture Indicated? Ur Random Creatinine U Random Total Protein U [place] Prot/Creat Ratio Urine Glucose Urine Opiates Screen Ur Buprenorphine Ur Norbuprenorphine Urine Methadone Screen Urine Fentanyl Screen Ur Barbiturates Screen Ur Tricyclics Screen Ur Amphetamines Screen U Benzodiazepines Scrn Urine Cocaine Screen U Cannabinoids Screen COVID-19 Source Nasopharynx SARS-CoV-2 (PCR) Negative Influenza Type A (PCR) Negative Influenza Type B (PCR) Negative RSV (PCR) Negative MRSA (TEM-PCR) Negative ABO/Rh Antibody Screen 07/16/25 07/16/25 07/17/25 16:45 18:40 06:15 WBC 6.96 7.79 RBC 3.27 L 3.30 L Hgb 8.8 L 8.7 L Hct 27.2 L 27.4 L MCV 83 83 MCH 26.9 L 26.4 L MCHC 32.4 31.8 L RDW 14.6 14.6 Plt Count 133 147 MPV 9.4 9.6 Immature Gran % 0.9 1.2 Neutrophils % 72.6 66.4 Lymphocytes % 18.0 21.3 Monocytes % 7.5 8.6 Eosinophils % 0.4 2.1 Basophils % 0.6 0.4 Nucleated RBC % 0.0 0.0 Absolute Neutrophils 5.06 5.18 Absolute Lymphocytes 1.25 1.66 Absolute Monocytes 0.52 0.67 Absolute Eosinophils 0.03 0.16 Absolute Basophils 0.04 0.03 RBC Morphology Polychromasia VBG pH 7.44 H VBG pCO2 34 L VBG pO2 102 VBG HCO3 23 VBG Total CO2 22 L VBG O2 Saturation VBG Base Excess -1 VBG Lactate 1.6 Sodium 142 142 Potassium 3.7 3.6 Chloride 110 H 110 H Carbon Dioxide 22.9 22.1 Anion Gap 9.1 9.9 BUN 8 L 8 L Creatinine 0.49 L 0.42 L Est GFR (CKD-EPI 2020) 161.57 193.01 Glucose 102 79 Calcium 8.2 L 8.0 L Total Bilirubin 0.50 0.40 Conjugated Bilirubin 0.1 GGT AST 51 H 45 H ALT 51 H 54 H Alkaline Phosphatase 174 H 178 H Total Protein 6.0 5.8 Albumin 3.1 L 3.1 L Urine Color Urine Clarity Urine pH Ur Specific [place] Urine Protein Urine Ketones Urine Blood Urine Nitrite Urine Bilirubin Urine Urobilinogen Ur Leukocyte Esterase Urine RBC Urine WBC Ur Epithelial Cells Urine Crystals Urine Bacteria Urine Mucus Ur Culture Indicated? Ur Random Creatinine 115.20 U Random Total Protein 88.0 H U [place] Prot/Creat Ratio 0.76 Urine Glucose Urine Opiates Screen Ur Buprenorphine Ur Norbuprenorphine Urine Methadone Screen Urine Fentanyl Screen Ur Barbiturates Screen Ur Tricyclics Screen Ur Amphetamines Screen U Benzodiazepines Scrn Urine Cocaine Screen U Cannabinoids Screen COVID-19 Source SARS-CoV-2 (PCR) Influenza Type A (PCR) Influenza Type B (PCR) RSV (PCR) MRSA (TEM-PCR) ABO/Rh Antibody Screen 07/18/25 06:10 WBC 10.91 H RBC 3.58 L Hgb 9.4 L Hct 29.3 L MCV 82 MCH 26.3 L MCHC 32.1 RDW 14.2 Plt Count 184 MPV 9.0 Immature Gran % Neutrophils % Lymphocytes % Monocytes % Eosinophils % Basophils % Nucleated RBC % Absolute Neutrophils Absolute Lymphocytes Absolute Monocytes Absolute Eosinophils Absolute Basophils RBC Morphology Polychromasia VBG pH VBG pCO2 VBG pO2 VBG HCO3 VBG Total CO2 VBG O2 Saturation VBG Base Excess VBG Lactate Sodium 142 Potassium 3.3 L Chloride 108 H Carbon Dioxide 22.3 Anion Gap 11.7 H BUN 7 L Creatinine 0.50 L Est GFR (CKD-EPI 2020) 157.83 Glucose 80 Calcium 8.3 Total Bilirubin 0.30 Conjugated Bilirubin GGT AST 24 ALT 45 Alkaline Phosphatase 174 H Total Protein 6.2 Albumin 3.3 Urine Color Urine Clarity Urine pH Ur Specific [place] Urine Protein Urine Ketones Urine Blood Urine Nitrite Urine Bilirubin Urine Urobilinogen Ur Leukocyte Esterase Urine RBC Urine WBC Ur Epithelial Cells Urine Crystals Urine Bacteria Urine Mucus Ur Culture Indicated? Ur Random Creatinine U Random Total Protein U [place] Prot/Creat Ratio Urine Glucose Urine Opiates Screen Ur Buprenorphine Ur Norbuprenorphine Urine Methadone Screen Urine Fentanyl Screen Ur Barbiturates Screen Ur Tricyclics Screen Ur Amphetamines Screen U Benzodiazepines Scrn Urine Cocaine Screen U Cannabinoids Screen COVID-19 Source SARS-CoV-2 (PCR) Influenza Type A (PCR) Influenza Type B (PCR) RSV (PCR) MRSA (TEM-PCR) ABO/Rh Antibody Screen Preliminary micro results at discharge 07/15/25 06:47 Blood Blood Culture - Preliminary NO GROWTH 72 HOURS 07/15/25 06:36 Blood Blood Culture - Preliminary NO GROWTH 72 HOURS
[2025-07-18 12:00] VITALS: BP 132/70; PULSE 85; RESP 17; TEMP 37; O2SAT 99
[2025-07-18] MEDS: Acetaminophen 325 MG TAB 650 MG PO (16:06)
[2025-07-18 16:35] VITALS: TEMP 37.1
== END 2025-07-18 18:04 | disposition home or self-care (01) | DRG 787 ==
PROVIDERS: Family Medicine; Obstetrics & Gynecology; Admitting Provider Advanced Practice Midwife; PCP Nurse Practitioner Family; Visit Provider Advanced Practice Midwife
PROC: 10D00Z1 Extraction of Products of Conception, Low, Open Approach (ICD-10-PCS; CPT 59514; principal; 2025-07-13 22:50)
DX: O99.52 Diseases of the respiratory system complicating childbirth (principal); J98.11 Atelectasis; Z37.0 Single live birth; O99.62 Diseases of the digestive system complicating childbirth; O99.214 Obesity complicating childbirth; E66.9 Obesity, unspecified; O99.344 Other mental disorders complicating childbirth; F41.8 Other specified anxiety disorders; O99.02 Anemia complicating childbirth; D64.9 Anemia, unspecified; O12.04 Gestational edema, complicating childbirth; O67.8 Other intrapartum hemorrhage; O62.1 Secondary uterine inertia; O61.0 Failed medical induction of labor; O69.81X0 Labor and delivery complicated by cord around neck, without compression, not applicable or unspecified; J45.20 Mild intermittent asthma, uncomplicated; K59.00 Constipation, unspecified; M41.80 Other forms of scoliosis, site unspecified; O43.893 Other placental disorders, third trimester; Z3A.39 39 weeks gestation of pregnancy; O86.4 Pyrexia of unknown origin following delivery; O87.1 Deep phlebothrombosis in the puerperium; O99.53 Diseases of the respiratory system complicating the puerperium; O14.15 Severe pre-eclampsia, complicating the puerperium; O99.63 Diseases of the digestive system complicating the puerperium; K80.20 Calculus of gallbladder without cholecystitis without obstruction; B96.4 Proteus (mirabilis) (morganii) as the cause of diseases classified elsewhere; R74.01 Elevation of levels of liver transaminase levels; O72.3 Postpartum coagulation defects; D69.6 Thrombocytopenia, unspecified
CPT/HCPCS: 59200; 59514; 00123; 36415; 71275; 80048; 80053; 80076; 80307; 80348; 82805; 85027; 86850; 86900; 86901; 87040; 87077; 87637; 87641; J1650; 74177; 76700; 81003; 81015; 82565; 82977; 83605; 84156; 85025; 87086; 87186; 88307; 93005; 93010; 94640; J0665; J0690; J0692; J0737; J1100; J1580; J1836; J1885; J2270; J2274; J2300; J2312; J2371; J2405; J3010; J3490; J7613